=== PATIENT | male | born 1945 | race Two or more races ===

== ENCOUNTER → 2017-04-24 | Outpatient (REF) | payer MEDICARE, OTHER | LOC: M LAB REF 12:56 | PROVIDERS: ATTEND Internal Medicine | DX: R25.1 Tremor, unspecified (principal) ==

== ENCOUNTER 2017-07-15 10:11 | Day surgery (SDC) | payer MEDICARE, OTHER ==
[2017-07-15] MEDS ORDERED: NS 1,000 ML IV (10:30)
[2017-07-15] MEDS ORDERED: PROPOFOL 500 MG/50 ML VIAL As Ordered (10:49)
[2017-07-15] MEDS ORDERED: LIDOCAINE 2% INJ 100 MG/5 ML SDV (FOR ANES.) As Ordered (10:49)
[2017-07-15] MEDS ORDERED: fentaNYL 100 MCG/2 ML INJECTION (J3010) As Ordered (10:49)
[2017-07-15] MEDS ORDERED: PHENYLephrine HCL 500 MCG/5 ML (100MCG/ML) SYRINGE (J2370) As Ordered (10:57)
== END 2017-07-15 12:00 | disposition home or self-care (01) ==
LOC: M OPP 10:11
DX: R19.4 Change in bowel habit (principal); K57.30 Diverticulosis of large intestine without perforation or abscess without bleeding; K62.5 Hemorrhage of anus and rectum; K64.0 First degree hemorrhoids; D12.2 Benign neoplasm of ascending colon; Z80.0 Family history of malignant neoplasm of digestive organs; R12 Heartburn; K44.9 Diaphragmatic hernia without obstruction or gangrene; K22.8 Other specified diseases of esophagus; I12.9 Hypertensive chronic kidney disease with stage 1 through stage 4 chronic kidney disease, or unspecified chronic kidney disease; K21.9 Gastro-esophageal reflux disease without esophagitis; E78.00 Pure hypercholesterolemia, unspecified; G43.909 Migraine, unspecified, not intractable, without status migrainosus; N18.3 Chronic kidney disease, stage 3 (moderate); Z79.82 Long term (current) use of aspirin; Z79.899 Other long term (current) drug therapy; Z88.0 Allergy status to penicillin; Z85.828 Personal history of other malignant neoplasm of skin
CPT/HCPCS: 45385

== ENCOUNTER → 2020-05-04 | Outpatient (REF) | payer MEDICARE, OTHER ==
[~2020-05-04] MED LIST: ASPI81TA26 PO; ATOR1TAB21 PO; COEN60CA PO; LOSA25TA14 PO; MAGN250T7 PO; MULT1TAB10 PO; POTA99TA PO; RANI150T PO; VITA-243 PO; VITA200016 PO
== END ==
LOC: M LAB REF 16:15
PROVIDERS: ATTEND Physician Assistant Medical
DX: R19.7 Diarrhea, unspecified (principal)

== ENCOUNTER → 2020-05-06 | Outpatient (CLI) | payer MEDICARE, OTHER ==
--- NOTE | 2020-05-06 08:59 | REP ---
INDICATION: RIGHT UPPER QUAD PAIN, DIARRHEA. COMPARISON: None. TECHNIQUE: Right upper quadrant sonography. FINDINGS: Scanning through the right upper quadrant of the abdomen demonstrates a normal sized, thin-walled gallbladder without evidence of stone or polyp. Common bile duct is normal measuring 0.4 cm in greatest diameter. No focal liver lesion is seen. Liver size is normal. Pancreas is partially obscured by bowel gas. Scan quality is inhibited and generally by limited scanning windows necessitating intercostal scanning. No pancreatic abnormality is observed. No right renal abnormality is seen. There is no evidence of ascites. The right kidney measures 9.5 x 5.0 x 4.7 cm. IMPRESSION: No abnormality noted. Negative right upper quadrant sonography.. <Electronically signed by Vern Estrada > 05/06/20 [id number]
== END ==
LOC: M RAD 08:11
PROVIDERS: ATTEND Physician Assistant Medical
DX: R10.11 Right upper quadrant pain (principal); R19.7 Diarrhea, unspecified

== ENCOUNTER → 2020-05-30 | Outpatient (REF) | payer MEDICARE, OTHER ==
[2020-05-30 17:31] LABS: C REACTIVE PROTEIN QUANTITATIV 0.44 MG/DL (0.00-0.30); RHEUMATOID FACTOR QUANT < 10.0 IU/ML (<15.0); URIC ACID 2.6 MG/DL (3.5-7.2)
[2020-05-30 17:41] LABS: VITAMIN B12 LEVEL 859 PG/ML (247-911)
[2020-05-31 13:49] LABS: BLOOD UREA NITROGEN 24 MG/DL (7-18); CALCIUM LEVEL 9.2 MG/DL (8.8-10.2); CARBON DIOXIDE LEVEL 32 MEQ/L (21-32); CHLORIDE LEVEL 105 MEQ/L (98-107); CREATININE FOR GFR 1.43 MG/DL (0.70-1.30); GLOMERULAR FILTRATION RATE 51.6 (>42); GLUCOSE, FASTING 84 MG/DL (70-100); POTASSIUM SERUM 4.2 MEQ/L (3.5-5.1); SODIUM LEVEL 141 MEQ/L (136-145)
[2020-06-02 02:07] LABS: ANTI DOUBLE STRAND-DNA AB <1 IU/mL (0-9); ANTINUCLEAR ANTIBODIES DIRECT Positive (Negative); CYCLIC CITRULLINATED PEPTIDE 6 units (0-19); Lyme Disease IgG/IgM Antibodie <0.91 ISR (0.00-0.90); Lyme Disease IgM Ab Quantitati <0.80 index (0.00-0.79); RNP ANTIBODIES 3.5 AI (0.0-0.9); SJOGREN'S ANTI SS-A <0.2 AI (0.0-0.9); SJOGREN'S ANTI SS-B <0.2 AI (0.0-0.9); SMITH ANTIBODIES <0.2 AI (0.0-0.9)
== END ==
LOC: M LAB REF 16:38
PROVIDERS: ATTEND Internal Medicine
DX: I12.9 Hypertensive chronic kidney disease with stage 1 through stage 4 chronic kidney disease, or unspecified chronic kidney disease (principal); M25.50 Pain in unspecified joint; R42 Dizziness and giddiness

== ENCOUNTER → 2020-06-09 | Outpatient (REF) | payer MEDICARE, OTHER ==
[~2020-06-09] MED LIST changes: +D32000CA PO; +FEBU40TA4 PO; +MULT-90 PO; +PANT40TA29 PO; +POTA8CAP10 PO
[2020-06-09 17:20] LABS: C REACTIVE PROTEIN QUANTITATIV 0.37 MG/DL (0.00-0.30)
== END ==
LOC: M LAB REF 15:59
PROVIDERS: ATTEND Internal Medicine
DX: R10.13 Epigastric pain (principal); R19.4 Change in bowel habit

== ENCOUNTER → 2020-06-17 | Outpatient (CLI) | payer MEDICARE, OTHER | LOC: M LABSMTC 11:41 | PROVIDERS: ATTEND Anesthesiology | DX: Z01.812 Encounter for preprocedural laboratory examination (principal); Z20.822 Contact with and (suspected) exposure to COVID-19 ==

== ENCOUNTER 2020-06-22 10:03 | Day surgery (SDC) | payer MEDICARE, OTHER ==
[~2020-06-22] VITALS: Ht 167.6 cm; Wt 83.9 kg
[~2020-06-22 10:03] MED LIST changes: +NS 1,000 ML IV ONE
--- OUTSIDE RECORDS SUMMARY | 2020-06-22 10:13 | CCD | Continuity of Care Document ---
Author Author Lab Schedule, Valentin Organization Unknown Address [address] [place] [id number] Phone Unavailable Care Team Providers Care Hammer Adjuster Name Role Phone Keyana Alcaraz AUTM [phone] [facility] AUTM Unavailable Cy Conde MD AUTM [phone] Sandrita Nix MD AUTM [phone] Jose Valentin MD AUTM [phone] Problems Active Problems Provider Date Essential hypertension Keyana Alcaraz FNP Onset: 08/03/2012 Pure hyperglyceridemia Keyana Alcaraz FNP Onset: 08/03/2012 Chronic kidney disease stage 3 Keyana Alcaraz FNP Onset: Social History Type Date Description Comments Sex Unknown ETOH Use Denies alcohol use Tobacco Use Start: Unknown End: Unknown Patient is a former smoker PIPE QUITE 25 YRS AGO Allergies, Adverse Reactions, Alerts Active Allergies Reaction Severity Comments Date Bactrim HIVES 05/01/2010 Medications Active Medications SIG Qnty Indications Ordering Provide r Date Atorvastatin Calcium 20mg Tablets 1 by mouth every day Sherri Nix M.D. 05/30/19 21 Coenzyme Q-10 200mg Capsules qd Sandrita Nix M.D. 05/30/2020 Asacol HD 800mg Tablets DR 1 by mouth three times a day 270tabs Sandrita Nix M.D. 2019 [facility] B12 2500mcg Chewtabs 1 PO qd Keyana Alcaraz FNP 05/07/2019 Pantoprazole Sodium 40mg Tablets D R take one tablet by mouth every night at bedtime Sherri Nix M.D. 05/08/2018 Tylenol Extra Strength 500mg Table ts 2 pills 2-3x/d as needed Sandrita Nix M.D. 0 08/30/2015 Calcium Citrate +D [id number] Tablets 1 po qd Sandrita Nix M.D. 06/27/19 16 Vitamin D3 2000Unit Tablets 1 by mouth every day Keyana Alcaraz FNP 04/29/2015 Multi-Vitamin Tablets 2 by mouth every day Sandrita Nix M.D. 05/01/20 10 Losartan Potassium 25mg Tablets 1/2 po qd Or Keyana Alcaraz FNP Febuxostat 80mg Tablets take 1 tablets by mouth daily Va Unknown History Medications Asacol HD 800mg Tablets DR 1 by mouth three times a day 180tabs Sandrita Nix M.D. 2019 - 05/02/2020 Medications Administered in Office Medication SIG Qnty Indications Ordering Provider Date Covid-19 vaccine, Unspecified Inj ection Unknown 05/19/2020 Administration Of Flu Vaccine Inj ection Keyana Alcaraz FNP 03/31/2014 Administration Of Flu Vaccine Inj ection Nurse Schedule 03/27/2012 Administration Of Flu Vaccine Inj ection Sandrita Nix M.D. 03/21/20 05 Immunizations CPT Code Status Date Vaccine Lot # U-Flu Given 02/25/2020 Influenza,Unspecified U-Flu Given 02/24/2019 Influenza,Unspecified U-Flu Given 02/14/2018 Influenza,Unspecified 65617 Given 11/27/2016 Adacel- Tetanus Diphtheria P ertussis (Age64 & Under) [id number] Given 06/08/2014 Prevnar 13 [id number] Q2037 Given 03/31/2014 Fluvirin Virus Vaccine [id number] 21 Q2037 Given 03/27/2012 Fluvirin Virus Vaccine Q2037 Given 03/02/2011 Fluvirin Virus Vaccine Q2037 Given 03/02/2011 Fluvirin Virus Vaccine 34970 Given 11/02/2008 Zoster Vaccine 98227 Given 03/18/2008 Influenza Virus Vaccine 51838 Given 03/21/2005 Influenza Virus Vaccine Vital Signs Date Vital Result Comment 05/30/2020 1:58pm BP Systolic 110 mmHg BP Diastolic 60 mmHg Heart Rate 94 /min Height 65.25 inches 5'5.25" Weight 183.50 lb O2 Saturation Level with Exercise 95 % RM Air BMI (Body Mass Index) 30.3 kg/m2 05/04/2020 1:07pm BP Systolic 110 mmHg BP Diastolic 78 mmHg Heart Rate 76 /min Height 65.25 inches 5'5.25" Weight 186.00 lb BMI (Body Mass Index) 30.7 kg/m2 Results Test Acquired Date Facility Test Result H/L Range Note Laboratory test finding 06/09/2020 [facility] [address] [place] [address] [phone] C Reactive Protein Quantitativ 0.37 mg/dL High 0 .00-0.30 Lipase 166 U/L Normal 73-393 Complete Blood Count 06/09/2020 [facility] [employer] Guest Relations Associate: [place] [address] [phone] WBC 5.2 x10*3/UL 4.1 - 10.9 RBC 4.18 x10*6/UL Low 4.20 - 6.30 Hemoglobin 13.3 g/dL 12.0 - 18.0 Hematocrit 39.2 % 37.0 - 51.0 MCV 93.6 fL 80.0 - 97.0 MCH 31.8 pg 26.0 - 32.0 MCHC 33.9 g/dL 31.0 - 38.0 RDW 12.4 % 11.6 - 13.7 PLT 174 x10*3/UL 140 - 440 MPV 8.6 FL 7.8 - 11.0 Lymph % 36.8 % 10.0 - 58.5 Mid % 7.4 % 1.7 - 9.3 Neut % 55.8 % 37.0 - 92.0 Lymph # 1.9 x10*3/UL 0.6 - 4.1 Mid # 0.4 x10*3/UL 0.1 - 0.6 Neut # 2.9 x10*3/UL 2.0 - 7.8 Comprehensive Chem Profile 06/09/2020 [facility] Guest Relations Associate: [place] [address] [phone] Glucose 98 mg/dL 74 - 99 1 BUN 13 mg/dL 7 - 18 Creatinine 1.5 mg/dL High 0.6 - 1.3 Sodium 139 mEq/L 136 - 145 Potassium 4.1 mEq/L 3.5 - 5.1 Chloride 102 mEq/L 98 - 107 Carbon Dioxide 34 mEq/L High 21 - 32 Calcium 8.5 mg/dL 8.5 - 10.1 Alk. Phosphatase 96 mg/dL 46 - 116 Total Bilirubin 0.5 mg/dL 0.2 - 1.0 Ast (Sgot) 29 U/L 15 - 37 Alt (SGPT) 24 U/L 12 - 78 Albumin 3.7 g/dL 3.4 - 5.0 Total Protein 7.5 g/dL 6.4 - 8.2 A/G Ratio 0.97 CALC Low 1.00 - 1.90 GFR 46 mL/min Low >60 GFR 56 mL/min Low >60 2 Ua Dipstick Only 05/30/2020 [facility] , Guest Relations Associate: Dr Marky Syed [place] [id number] [phone] Urine Color YELLOW Yellow Urine Appearance SL. HAZY Abnormal Clear Urine PH 5.0 units 5.0 - 9.0 Urine Specific Lemitar 1.025 1.005 - 1.030 Urine Leukocytes NEGATIVE Negative Urine Blood NEGATIVE Negative Urine Protein TRACE Negative -Trace Urine Glucose NEGATIVE mg/dL Negative Urine Nitrite NEGATIVE Negative Urine Ketone NEGATIVE mg/dL Negative Urine Bilirubin NEGATIVE Negative Urine Urobilinogen 0.2 mg/dL 0.2 - 1.0 Laboratory test finding 05/30/2020 [facility] [employer] [facility] [facility] Guest Relations Associate: Dr Marky Syed [place], [place] [id number] [phone] Sed Rate 35 mm/hr High 0 - 15 Basic Metabolic Profile 05/30/2020 [facility] [address] [place] [address] [phone] Glucose, Fasting 84 mg/dL Normal 70-100 Blood Urea Nitrogen 24 mg/dL High 7-18 Creatinine For GFR 1.43 mg/dL High 0.70-1.30 Glomerular Filtration Rate 51.6 Normal >42 3 Sodium Level 141 mEq/L Normal 136-145 Potassium Serum 4.2 mEq/L Normal 3.5-5.1 Chloride Level 105 mEq/L Normal 98-107 Carbon Dioxide Level 32 mEq/L Normal 21-32 Anion Gap 4 mEq/L Low 8-16 Calcium Level 9.2 mg/dL Normal 8.8-10.2 Laboratory test finding 05/30/[address] [address] [phone] Thyroid Stimulating Hormone 4.100 uIU/ML High 0. 358-3.740 Lyme Disease SCRN With Confirm 05/30/[address] [address] [phone] Lyme Disease IgG/IgM Antibodie <0.91 ISR Normal 0 .00-0.90 4 Lyme Disease IgM Ab Quantitati <0.80 index Normal 0.00-0.79 5 Laboratory test finding 05/30/[address] [address] [phone] Cyclic Citrullinated Peptide 6 units Normal 0-1 9 6 Rheumatoid Factor Quant < 10.0 IU/mL Normal <15.0 Uric Acid 2.6 mg/dL Low 3.5-7.2 Vitamin B12 Level 859 pg/mL Normal 247-911 7 Antinuclear Antibodies 05/30/[address] [address] [phone] Antinuclear Antibodies Direct Positive Abnormal Ne gative Anti Double Strand-Dna AB <1 IU/mL Normal 0-9 8 ART MUSEUM DOCENT Antibodies 3.5 AI High 0.0-0.9 Fan Antibodies <0.2 AI Normal 0.0-0.9 Sjogren's Anti SS-A <0.2 AI Normal 0.0-0.9 Sjogren's Anti SS-B <0.2 AI Normal 0.0-0.9 Griselda Comment (SEE NOTE) Normal . 9 Laboratory test finding 05/30/[address] [address] [phone] C Reactive Protein Quantitativ 0.44 mg/dL High 0 .00-0.30 GI Profile PCR So 05/04/2020 [facility] [address] [place], [place] [id number] [phone] Campylobacter Not Detected 10 C.difficile A/B Not Detected 11 Plesiomonas shigelloides Not Detected 12 Salmonella Not Detected 13 Vibro Not Detected 14 Vibrio cholerae Not Detected 15 Yersinia enterocolitica Not Detected 16 Enteroaggregative Ecoli Not Detected 17 Entropathogenic Ecoli Not Detected 18 Enterotoxigenic Ecoli Not Detected 19 Shiga toxin producing Ecoli Not Detected 20 E coli 0157 Not applicable 21 Shigella Entroinvasive Ecoli Not Detected 22 Cryptosporidium Not Detected 23 Cyclospora cayetanensis Not Detected 24 Entamoeba histolytica Not Detected 25 Giardia lamblia Not Detected 26 Adenovirus F 40/41 Not Detected 27 Astrovirus Not Detected 28 Norovirus GI/Gii Not Detected 29 Rotavirus A Not Detected 30 Saprovirus Performed at: B <SEE NOTE> 31 Laboratory test finding 05/04/2020 [facility] [address] [place] [id number] [phone] C Reactive Protein Quantitativ 3.85 mg/dL High 0 .00-0.30 Complete Blood Count 05/04/2020 [facility] Guest Relations Associate: [place] [address] [phone] WBC 8.1 x10*3/UL 4.1 - 10.9 RBC 4.18 x10*6/UL Low 4.20 - 6.30 Hemoglobin 13.5 g/dL 12.0 - 18.0 Hematocrit 38.9 % 37.0 - 51.0 MCV 93.0 fL 80.0 - 97.0 MCH 32.2 pg High 26.0 - 32.0 MCHC 34.6 g/dL 31.0 - 38.0 RDW 12.6 % 11.6 - 13.7 PLT 173 x10*3/UL 140 - 440 MPV 9.1 FL 7.8 - 11.0 Lymph % 16.8 % 10.0 - 58.5 Mid % 4.3 % 1.7 - 9.3 Neut % 78.9 % 37.0 - 92.0 Lymph # 1.3 x10*3/UL 0.6 - 4.1 Mid # 0.5 x10*3/UL 0.1 - 0.6 Neut # 6.3 x10*3/UL 2.0 - 7.8 Laboratory test finding 05/04/2020 [facility] [employer] [facility] [facility] Guest Relations Associate: [place] [address] [phone] Sed Rate 36 mm/hr High 0 - 15 Comprehensive Chem Profile 05/04/2020 [facility] Guest Relations Associate: Dr Marky Syed [place], [place] [id number] [phone] Glucose 101 mg/dL High 74 - 99 32 BUN 16 mg/dL 7 - 18 Creatinine 1.3 mg/dL 0.6 - 1.3 Sodium 141 mEq/L 136 - 145 Potassium 4.2 mEq/L 3.5 - 5.1 Chloride 104 mEq/L 98 - 107 Carbon Dioxide 27 mEq/L 21 - 32 Calcium 8.6 mg/dL 8.5 - 10.1 Alk. Phosphatase 82 mg/dL 46 - 116 Total Bilirubin 0.7 mg/dL 0.2 - 1.0 Ast (Sgot) 27 U/L 15 - 37 Alt (SGPT) 26 U/L 12 - 78 Albumin 3.6 g/dL 3.4 - 5.0 Total Protein 7.4 g/dL 6.4 - 8.2 A/G Ratio 0.95 CALC Low 1.00 - 1.90 GFR 54 mL/min Low >60 GFR >= 60 mL/min >60 33 Basic Metabolic Panel 12/25/2019 [facility] Guest Relations Associate: [place] [address] [phone] Glucose 92 mg/dL 74 - 99 34 BUN 13 mg/dL 7 - 18 Creatinine 1.4 mg/dL High 0.6 - 1.3 Sodium 145 mEq/L 136 - 145 Potassium 4.2 mEq/L 3.5 - 5.1 Chloride 107 mEq/L 98 - 107 Carbon Dioxide 28 mEq/L 21 - 32 Calcium 8.2 mg/dL Low 8.5 - 10.1 35 GFR 50 mL/min Low >60 GFR >= 60 mL/min >60 36 Lipid Profile 12/25/2019 [facility] , Guest Relations Associate: [place] [address] [phone] Cholesterol 91 mg/dL Low 131 - 200 Triglycerides 102 mg/dL 30 - 150 HDL Cholesterol 31 mg/dL Low 35 - 60 LDL (Calculated) 40 CALC Low 50 - 159 1 100-125 mg/dL PRE-DIABET ES/FASTING >126 mg/dL DIABETES/FASTING 2 CHRONIC KIDNEY DISEASE STAGI NG PER NKF STAGE I & II GFR >= 60 NORMAL TO MILDLY DECREASED STAGE III GFR 30-59 MODERATELY DECREASED STAGE IV GFR 15-29 SEVERELY DECREASED STAGE V GFR <15 VERY LITTLE GFR LEFT ESRD GFR <15 ON MIXING PAN TENDER 3 Units are mL/min/1.73 m2 Chronic Kidney Disease Staging per NKF: Stage I & II GFR >=60 Normal to Mildly Decreased Stage III GFR 30-59 Moderately Decreased Stage IV GFR 15-29 Severely Decreased Stage V GFR <15 Very Little GFR Left ESRD GFR <15 on MIXING PAN TENDER 4 Negative <0.91 Equivocal 0.91 - 1.09 Positive >1.09 5 Negative <0.80 Equivocal 0.80 - 1.19 Positive >1.19 . IgM levels may peak at 3-6 weeks post infection, then gradually decline. 6 Negative <20 Weak positive 20 - 39 Moderate positive 40 - 59 Strong positive >59 7 VITAMIN B12 NORMAL RANGE NORMAL 247 - 911 PG/ML INDETERMINATE 211 - 246 PG/ML DEFICIENT LESS THAN 211 PG/ML 8 Negative <5 Equivocal 5 - 9 Positive >9 9 . Autoantibody Disease Association Condition Frequency -------- --------- Antinuclear Antibody, SLE, mixed connective Direct (GRISELDA-D) tissue diseases -------- --------- dsDNA SLE 40 - 60% -------- --------- Chromatin Drug induced SLE 90% SLE 48 - 97% -------- --------- SSA (Ro) SLE 25 - 35% Sjogren's Syndrome 40 - 70% Lupus 100% -------- --------- SSB (La) SLE 10% Sjogren's Syndrome 30% ------- --------- Sm (anti-Fan) SLE 15 - 30% ------- --------- ART MUSEUM DOCENT Mixed Connective Tissue Disease 95% (U1 nRNP, SLE 30 - 50% anti-ribonucleoprotein) Polymyositis and/or Dermatomyositis 20% -------- --------- Scl-70 (antiDNA Scleroderma (diffuse) 20 - 35% topoisomerase) Crest 13% -------- --------- Lauryn-1 Polymyositis and/or Dermatomyositis 20 - 40% -------- --------- Centromere B Scleroderma - Crest variant 80% Performed at: [facility] [address] [id number] Guest Relations Associate: Gris Oro MD, Phone: [phone] Performed at: [facility] [id number] Guest Relations Associate: Minh Mora MD, Phone: [phone] 14 15 16 17 18 19 20 21 22 23 24 25 26 27 28 29 30 31 Performed at: [facility] [id number] Guest Relations Associate: Minh Mora MD, Phone: [phone] Not Detected 32 100-125 mg/dL PRE-DIABET ES/FASTING >126 mg/dL DIABETES/FASTING 33 CHRONIC KIDNEY DISEASE STAGI NG PER NKF STAGE I & II GFR >= 60 NORMAL TO MILDLY DECREASED STAGE III GFR 30-59 MODERATELY DECREASED STAGE IV GFR 15-29 SEVERELY DECREASED STAGE V GFR <15 VERY LITTLE GFR LEFT ESRD GFR <15 ON MIXING PAN TENDER 34 100-125 mg/dL PRE-DIABET ES/FASTING >126 mg/dL DIABETES/FASTING 35 NOTE: RESULT VERIFIED. 36 CHRONIC KIDNEY DISEASE STAGI NG PER NKF STAGE I & II GFR >= 60 NORMAL TO MILDLY DECREASED STAGE III GFR 30-59 MODERATELY DECREASED STAGE IV GFR 15-29 SEVERELY DECREASED STAGE V GFR <15 VERY LITTLE GFR LEFT ESRD GFR <15 ON MIXING PAN TENDER Procedures Date Code Description Status 05/30/2020 28168 EKG/Interpretation & Report Comp leted 07/15/2017 [id number] Colonoscopy Completed 04/02/2012 [id number] Colonoscopy Completed 01/16/2010 [id number] Colonoscopy Completed Medical Devices Description No Information Available Encounters Type Date Location Provider Dx Diagnosis Office Visit 05/30/2020 2:00p [facility] Nurse #2 Z13.89 Encounter for screening for other disorder Z86.010 Personal history of colonic polyps Office Visit 05/30/2020 2:30p [facility] 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 R42 Dizziness and giddiness R44.1 Visual hallucinations G31.84 Mild cognitive impairment, s o stated G47.33 Obstructive sleep apnea (soledad lt) (pediatric) K21.9 Gastro-esophageal reflux dis ease without esophagitis M10.9 Gout, unspecified I12.9 Hypertensive chronic kidney disease w stg 1-4/unsp chr kdny N18.31 Chronic kidney disease, stag e 3a M06.4 Inflammatory polyarthropathy E66.09 Other obesity due to excess calories Z68.30 Body mass index [BMI]30.0-30 .9, adult Office Visit 05/04/2020 1:20p [facility] Wise [facility], [place] R07.89 Other chest pain R19.7 Diarrhea, unspecified R10.811 Right upper quadrant abdomin al tenderness K21.9 Gastro-esophageal reflux dis ease without esophagitis Office Visit 01/01/2020 9:40a [facility] Mikaela banerjee, [employer]ENER I10 Essential (primary) hypertension E78.00 Pure hypercholesterolemia, u nspecified K21.9 Gastro-esophageal reflux dis ease without esophagitis M15.9 Polyosteoarthritis, unspecif ied M10.9 Gout, unspecified R97.20 Elevated prostate specific a ntigen [PSA] E66.09 Other obesity due to excess calories Z68.30 Body mass index (BMI) 30.0-3 0.9, adult Assessments Date Code Description Provider 06/09/2020 R19.4 Change in bowel habit Sandrita moon M.D. 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 05/30/2020 R42 Dizziness and giddiness Sandrita Nix M.D. 05/30/2020 R44.1 Visual hallucinations Sandrita moon M.D. 05/30/2020 G31.84 Mild cognitive impairment, so st ated Sandrita Nix M.D. 05/30/2020 G47.33 Obstructive sleep apnea (adult) (pediatric) Sandrita Nix M.D. 05/30/2020 K21.9 Gastro-esophageal reflux disease without esophagitis Sandrita Nix M.D. 05/30/2020 M10.9 Gout, unspecified Sandrita em M.D. 05/30/2020 I12.9 Hypertensive chronic kidney disease with stage 1 through stage 4 chronic kidney disease, or unspecified chronic kidney disease Sandrita Nix M.D. 05/30/2020 N18.31 Chronic kidney disease, stage 3a Sandrita Nix M.D. 05/30/2020 M06.4 Inflammatory polyarthropathy Shawn Nix M.D. 05/30/2020 E66.09 Other obesity due to excess grecia rhea Sandrita Nix M.D. 05/30/2020 Z68.30 Body mass index [BMI]30.0-30.9, adult Sandrita Nix M.D. 05/04/2020 R07.89 Other chest pain Rao sampson JR, PA 05/04/2020 R19.7 Diarrhea, unspecified Rao ramírez JR, PA 05/04/2020 R10.811 Right upper quadrant abdominal t enderness Rao Wise JR, PA 05/04/2020 K21.9 Gastro-esophageal reflux disease without esophagitis Rao Wise JR, PA 01/01/2020 I10 Essential (primary) hypertension Mikaela Whitley, [facility] 01/01/2020 E78.00 Pure hypercholesterolemia, unspe cified Mikaela Cabrerara, [facility] 01/01/2020 K21.9 Gastro-esophageal reflux disease without esophagitis Mikaela Whitley, [facility] 01/01/2020 M15.9 Polyosteoarthritis, unspecified Mikaela Gutierrez, [facility] 01/01/2020 M10.9 Gout, unspecified Mikaela Gutierrez, [facility] 01/01/2020 R97.20 Elevated prostate specific antig en [PSA] Mikaela Whitley, [facility] 01/01/2020 E66.09 Other obesity due to excess grecia rhea Mikaela Whitley, [facility] 01/01/2020 Z68.30 Body mass index (BMI) 30.0-30.9, adult Mikaela Whitley, [facility] 12/25/2019 I10 Essential (primary) hypertension Mikaela Whitley, [facility] 12/25/2019 I10 Essential (primary) hypertension Lab Schedule 12/25/2019 E78.00 Pure hypercholesterolemia, unspe cified Mikaela Whitley, [facility] 12/25/2019 E78.00 Pure hypercholesterolemia, unspe cified Lab Schedule Plan of Treatment Future Appointment(s):* 07/04/2020 10:45 am - Sandrita Nix M.D. at [facility]. 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 * R42 Dizziness and giddiness * R44.1 Visual hallucinations * G31.84 Mild cognitive impairment, so stated * G47.33 Obstructive sleep apnea (adult) (pediatric) * K21.9 Gastro-esophageal reflux disease without esophagitis * M10.9 Gout, unspecified * I12.9 Hypertensive chronic kidney disease with stage 1 through stage 4 chronic kidney disease, or unspecified chronic kidney disease * N18.31 Chronic kidney disease, stage 3a * M06.4 Inflammatory polyarthropathy * E66.09 Other obesity due to excess calories * Z68.30 Body mass index [BMI]30.0-30.9, adult * All * New Medication:* Atorvastatin Calcium 20 mg - 1 by mouth every day * Coenzyme Q-10 200 mg - qd * Comments:* 13. Hard of hearing. Continue the hearing aids14. Migraines. Improved. I have approved using Excedrin [id number]. OA/DJD, chronic low back pain. Evaluate inflammatory [id number]. Health Maintenance. Medicare Wellness paperwork reviewed including check list, CAGE, Cognitive impairment, PHQ9, male preventative wellness. Patient is up to date with vaccine, even the COVID-19. Up to date with colon cancer screening. Diet, exercise encouraged. Functional Status Description No Information Available Mental Status Description No Information Available Referrals Refer to Reason for Referral Status Appt Date Jose Valentin MD CONSULT FOR DIARRHEA Patient Notified [address] [facility] [address] [phone] [facility] Pulmonary Medicine CONSULT FOR SLEEP STUDY FOR CHIDI SYMPTONS Sent [id number] [place] [address] [phone]
--- OUTSIDE RECORDS SUMMARY | 2020-06-22 10:13 | CCD | Continuity of Care Document ---
Author Author Valentin VALENTIN M.D Organization Unknown Address [address] [place] [address] Phone [phone] Care Team Providers Care Web User Experience Strategist Name Role Phone Sandrita Nix M.D. AUTM [phone] Problems Active Problems Provider Date Screening for malignant neoplasm of colon Jose mcadams M.D. Onset: 06/09/2020 Abdominal pain Jose Valentin M.D. Onset: 02/11/20 12 Hemorrhage of rectum and anus Jose Valentin M.D. Onset : 02/11/2012 Diarrhea Jose Valentin M.D. Onset: 09/27/19 12 Family history of malignant neoplasm of gastrointestin al tract Jose Valentin M.D. Onset: 09/27/2011 Gastroesophageal reflux disease Jose Valentin M.D. Ons et: 09/27/2011 History of polyp of colon Jose Valentin M.D. Onset: Social History Type Date Description Comments Sex Unknown Tobacco Use Start: Unknown Patient has never smoked Allergies, Adverse Reactions, Alerts Active Allergies Reaction Severity Comments Date Bactrim 08/08/2011 Reglan 08/08/2011 Medications Active Medications SIG Qnty Indications Ordering Provide r Date Suprep Bowel Prep Kit 17.5-3.13-1.6GM/177ML Solution use as directed 354ml Jose Valentin M.D. 06/09/2020 Pantoprazole Sodium 40mg Tablets D R Take 1 Tablet Every Evening Before Dinner 90tabs Jose fonseca M.D. 09/25/2018 Atorvastatin Calcium 20mg Tablets Unknown Losartan Potassium 25mg Tablets Unknown Calcium 600+D [id number]-Qrvn Tablets Unknown Multiple Vitamin Tablets Unknown Mesalamine 800mg Tablets DR Take One Tablet By Mouth Three Times A Day Unknown Febuxostat 80mg Tablets Unknown Coq-10 100mg Capsules ER Unknown Flaxseed Oil 1000mg Capsules Unknown Immunizations Description No Information Available Vital Signs Date Vital Result Comment 06/09/2020 2:07pm Height 66 inches 5'6" Weight 186.00 lb BP Systolic 124 mmHg BP Diastolic 83 mmHg Heart Rate 76 /min BMI (Body Mass Index) 30.0 kg/m2 Weight 84.370 kg Body Temperature 97.3 F 06/25/2017 3:11pm Height 66 inches 5'6" Weight 189.00 lb BP Systolic 122 mmHg BP Diastolic 83 mmHg Heart Rate 109 /min BMI (Body Mass Index) 30.5 kg/m2 Weight 85.730 kg Results Description No Information Available Procedures Description No Information Available Medical Devices Description No Information Available Encounters Type Date Location Provider Dx Diagnosis Office Visit 06/09/2020 1:45p Main Office Jose Valentin M.D. R 10.10 Upper abdominal pain, unspecified Assessments Date Code Description Provider 06/09/2020 R10.10 Abdominal pain Jose aguero M.D. Plan of Treatment Future Appointment(s):* 06/22/2020 10:00 am - Jose Valentin M.D. at Main Office 06/09/2020 - Jose Valentin M.D.* R10.10 Abdominal pain* Comments:* 74 yo wm who presents for a h/o diarrhea since October. Pt has diarrhea up to 4 to 6 times per day. Pt has epigastric/ruq abdominal pain. Pt had an us of the gall bladder which was negative for stones. Pt has occasional rectal bleeding.Plan:1. Colonoscopy + egd.2. Informed consent. Functional Status Description No Information Available Mental Status Description No Information Available Referrals Description No Information Available
--- OUTSIDE RECORDS SUMMARY | 2020-06-22 10:13 | CCD | Continuity of Care Document ---
Author Author Lab Schedule, Valentin Organization Unknown Address [address] [place] [address] Phone Unavailable Care Team Providers Care Alarm Installer Name Role Phone Keyana Alcaraz AUTM [phone] [facility] AUTM Unavailable Cy Conde MD AUTM [phone] Sandrita Nix MD AUTM [phone] Jose Valentin MD AUTM [phone] Problems Active Problems Provider Date Essential hypertension [...] Nix M.D. 0 08/30/2015 Calcium Citrate +D [id number] Tablets 1 po qd Sandrita Nix M.D. 06/27/19 16 Vitamin D3 2000Unit Tablets 1 by mouth every day Keyana Alcaraz FNP 04/29/2015 Multi-Vitamin Tablets 2 by mouth every day Sandrita Nix M.D. 05/01/20 10 Losartan Potassium 25mg Tablets 1/2 po qd W[place] Keyana Alcaraz FNP Febuxostat 80mg Tablets take [...] Given 02/24/2019 Influenza,Unspecified U-Flu Given 02/14/2018 Influenza,Unspecified 77069 Given 11/27/2016 Adacel- Tetanus Diphtheria P ertussis (Age64 & Under) [id number] 40252 Given 06/08/2014 Prevnar 13 [id number] Q2037 Given 03/31/2014 Fluvirin Virus Vaccine 60831 21 Q2037 Given 03/27/2012 Fluvirin Virus Vaccine Q2037 Given 03/02/2011 Fluvirin Virus Vaccine Q2037 Given 03/02/2011 Fluvirin Virus Vaccine 78404 Given 11/02/2008 Zoster Vaccine 29489 Given 03/18/2008 Influenza Virus Vaccine 56502 Given 03/21/2005 Influenza Virus Vaccine Vital Signs [...] H/L Range Note Laboratory test finding 06/09/2020 [facility] [address] [place] [address] [phone] High Sensitivity C-Reactive Protein <pending> Lipase <pending> Complete Blood Count 06/09/2020 [facility]enkins Exhibition Carver: [place] [address] [phone] WBC 5.2 x10*3/UL 4.1 - 10.9 RBC [...] 2.0 - 7.8 Comprehensive Chem Profile 06/09/2020 [facility] Exhibition Carver: [place] [address] [phone] Glucose 98 mg/dL 74 - 99 1 [...] Low >60 2 Ua Dipstick Only 05/30/2020 [facility] Exhibition Carver: [place] [address] [phone] Urine Color YELLOW Yellow Urine Appearance SL. HAZY Abnormal Clear Urine PH 5.0 units 5.0 - 9.0 Urine Specific [place] 1.025 1.005 - 1.030 Urine Leukocytes NEGATIVE Negative Urine Blood NEGATIVE Negative Urine Protein TRACE Negative -Trace Urine Glucose NEGATIVE mg/dL Negative Urine Nitrite NEGATIVE Negative Urine Ketone NEGATIVE mg/dL Negative Urine Bilirubin NEGATIVE Negative Urine Urobilinogen 0.2 mg/dL 0.2 - 1.0 Laboratory test finding 05/30/2020 [facility] Exhibition Carver: [place] [address] [phone] Sed Rate 35 mm/hr High 0 - 15 Basic Metabolic Profile 05/30/2020 [facility] [address] [place] [address] [phone] Glucose, Fasting 84 mg/dL Normal 70-100 Blood [...] mg/dL Normal 8.8-10.2 Laboratory test finding 05/30/[address] [address] [phone] Thyroid Stimulating Hormone 4.100 uIU/ML High 0. 358-3.740 Lyme Disease SCRN With Confirm 05/30/[address] [address] [phone] Lyme Disease IgG/IgM Antibodie <0.91 ISR Normal 0 .00-0.90 4 Lyme Disease IgM Ab Quantitati <0.80 index Normal 0.00-0.79 5 Laboratory test finding 05/30/[address] [address] [phone] Cyclic Citrullinated Peptide 6 units Normal 0-1 9 6 Rheumatoid Factor Quant < 10.0 IU/mL Normal <15.0 Uric Acid 2.6 mg/dL Low 3.5-7.2 Vitamin B12 Level 859 pg/mL Normal 247-911 7 Antinuclear Antibodies 05/30/[address] [address] [phone] Antinuclear Antibodies Direct Positive Abnormal Ne gative Anti Double Strand-Dna AB <1 IU/mL Normal 0-9 8 ANALYTICAL CHEMIST Antibodies 3.5 AI High 0.0-0.9 Fan Antibodies <0.2 AI Normal 0.0-0.9 Sjogren's Anti SS-A <0.2 AI Normal 0.0-0.9 Sjogren's Anti SS-B <0.2 AI Normal 0.0-0.9 Griselda Comment (SEE NOTE) Normal . 9 Laboratory test finding 05/30/[address] [address] [phone] C Reactive Protein Quantitativ 0.44 mg/dL High 0 .00-0.30 GI Profile PCR So 05/04/2020 [facility] n[facility] [address] [place] [address] [phone] Campylobacter Not Detected 10 C.difficile A/B Not [...] <SEE NOTE> 31 Laboratory test finding 05/04/2020 [facility] [address] [place] [address] [phone] C Reactive Protein Quantitativ 3.85 mg/dL High 0 .00-0.30 Complete Blood Count 05/04/2020 [facility] Exhibition Carver: [place] [address] [phone] WBC 8.1 x10*3/UL 4.1 - 10.9 RBC [...] 2.0 - 7.8 Laboratory test finding 05/04/2020 [facility] Exhibition Carver: [place] [address] [phone] Sed Rate 36 mm/hr High 0 - 15 Comprehensive Chem Profile 05/04/2020 [facility] Exhibition Carver: Dr Marky Syed [place], [place] [id number] [phone] Glucose 101 mg/dL High 74 - 99 [...] mL/min >60 33 Basic Metabolic Panel 12/25/2019 [facility] Exhibition Carver: Dr Marky Syed [place], [place] [id number] [phone] Glucose 92 mg/dL 74 - 99 34 [...] 60 mL/min >60 36 Lipid Profile 12/25/2019 [facility] , Exhibition Carver: [place] [address] [phone] Cholesterol 91 mg/dL Low 131 - 200 [...] LITTLE GFR LEFT ESRD GFR <15 ON POST EXCHANGE MANAGER 3 Units are mL/min/1.73 m2 Chronic Kidney Disease Staging per NKF: Stage I & II GFR >=60 Normal to Mildly Decreased Stage III GFR 30-59 Moderately Decreased Stage IV GFR 15-29 Severely Decreased Stage V GFR <15 Very Little GFR Left ESRD GFR <15 on POST EXCHANGE MANAGER 4 Negative <0.91 Equivocal 0.91 - 1.09 [...] (anti-Fan) SLE 15 - 30% ------- --------- ANALYTICAL CHEMIST Mixed Connective Tissue Disease 95% (U1 nRNP, SLE 30 - 50% anti-ribonucleoprotein) Polymyositis and/or Dermatomyositis 20% -------- --------- Scl-70 (antiDNA Scleroderma (diffuse) 20 - 35% topoisomerase) Crest 13% -------- --------- Lauryn-1 Polymyositis and/or Dermatomyositis 20 - 40% -------- --------- Centromere B Scleroderma - Crest variant 80% Performed at: - [facility] [address] [id number] Exhibition Carver: Gris Oro MD, Phone: [phone] Performed at: - [facility] [address] [id number] Exhibition Carver: Minh Mora MD, Phone: [phone] 10 11 12 13 14 15 16 17 18 19 20 21 22 23 24 25 26 27 28 29 30 31 Performed at: - [facility] [address] [id number] Exhibition Carver: Minh Mora MD, Phone: [phone] Not Detected 32 100-125 mg/dL PRE-DIABET ES/FASTING >126 mg/dL DIABETES/FASTING 33 CHRONIC KIDNEY DISEASE STAGI NG PER NKF STAGE I & II GFR >= 60 NORMAL TO MILDLY DECREASED STAGE III GFR 30-59 MODERATELY DECREASED STAGE IV GFR 15-29 SEVERELY DECREASED STAGE V GFR <15 VERY LITTLE GFR LEFT ESRD GFR <15 ON POST EXCHANGE MANAGER 34 100-125 mg/dL PRE-DIABET ES/FASTING >126 mg/dL DIABETES/FASTING 35 NOTE: RESULT VERIFIED. 36 CHRONIC KIDNEY DISEASE STAGI NG PER NKF STAGE I & II GFR >= 60 NORMAL TO MILDLY DECREASED STAGE III GFR 30-59 MODERATELY DECREASED STAGE IV GFR 15-29 SEVERELY DECREASED STAGE V GFR <15 VERY LITTLE GFR LEFT ESRD GFR <15 ON POST EXCHANGE MANAGER Procedures Date Code Description Status 05/30/2020 86250 EKG/Interpretation & Report Comp leted 07/15/2017 [id number] Colonoscopy Completed 04/02/2012 [id number] Colonoscopy Completed 01/16/2010 [id number] Colonoscopy Completed Medical Devices Description No Information Available Encounters Type Date Location Provider Dx Diagnosis Office Visit 05/30/2020 2:00p [facility] Nurse #2 Z13.89 Encounter for screening for other disorder Z86.010 Personal history of colonic polyps Office Visit 05/30/2020 2:30p [facility] Shawn Nix M.D. 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 R42 Dizziness [...] [BMI]30.0-30 .9, adult Office Visit 05/04/2020 1:20p [facility], [place] R07.89 Other chest pain R19.7 Diarrhea, unspecified R10.811 Right upper quadrant abdomin al tenderness K21.9 Gastro-esophageal reflux dis ease without esophagitis Office Visit 01/01/2020 9:40a [facility], PCI SECURITY CONSULTANT I10 Essential (primary) hypertension E78.00 Pure hypercholesterolemia, u nspecified K21.9 Gastro-esophageal reflux dis ease without esophagitis M15.9 Polyosteoarthritis, unspecif ied M10.9 Gout, unspecified R97.20 Elevated prostate specific a ntigen [PSA] E66.09 Other obesity due to excess calories Z68.30 Body mass index (BMI) 30.0-3 0.9, adult Assessments Date Code Description Provider 05/30/2020 Z13.89 Encounter for screening for othe [...] PA 01/01/2020 I10 Essential (primary) hypertension Mikaela Gutierrez, [facility] 01/01/2020 E78.00 Pure hypercholesterolemia, unspe cified Mikaela Gutierrez, [facility] 01/01/2020 K21.9 Gastro-esophageal reflux disease without esophagitis Mikaela Gutierrez, [facility] 01/01/2020 M15.9 Polyosteoarthritis, unspecified Mikaela Gutierrez, [facility] 01/01/2020 M10.9 Gout, unspecified Mikaela Gutierrez, [facility] 01/01/2020 R97.20 Elevated prostate specific antig en [PSA] Mikaela Cabrerara, [facility] 01/01/2020 E66.09 Other obesity due to excess grecia rhea Mikaela Gutierrez, [facility] 01/01/2020 Z68.30 Body mass index (BMI) 30.0-30.9, adult Mikaela Whitley, [facility] 12/25/2019 I10 Essential (primary) hypertension Mikaela Whitley, [place] 12/25/2019 I10 Essential (primary) hypertension Lab Schedule 12/25/2019 E78.00 Pure hypercholesterolemia, unspe cified Mikaela Whitley, PCI SECURITY CONSULTANT 12/25/2019 E78.00 Pure hypercholesterolemia, unspe cified Lab Schedule Plan of Treatment Future Appointment(s):* 07/04/2020 10:45 am - [facility] 05/30/2020 - Sandrita Nix M.D.* K52.3 Indeterminate [...] Migraines. Improved. I have approved using Excedrin [id number]. OA/DJD, chronic low back pain. Evaluate inflammatory . Health Maintenance. Medicare Wellness paperwork reviewed including [...] MD CONSULT FOR DIARRHEA Patient Notified [address] [facility] [address] [phone] [facility] Pulmonary Medicine CONSULT FOR SLEEP STUDY FOR CHIDI SYMPTONS Sent [phone] [place] [address] [phone]
--- OUTSIDE RECORDS SUMMARY | 2020-06-22 10:13 | CCD | Continuity of Care Document ---
Author Author Lab Schedule, Valentin Organization Unknown Address [address] [place] [phone] Phone Unavailable Care Team Providers Care Riveter Portable Machine Name Role Phone Keyana Alcaraz AUTM [phone] [facility] AUTM Unavailable Cy Conde MD AUTM [phone] Sandrita Nix MD AUTM [phone] Jose Valentin MD AUTM [phone] Problems Active Problems Provider Date Essential hypertension [...] Nix M.D. 0 08/30/2015 Calcium Citrate +D [id number]-Txka Tablets 1 po qd Sandrita Nix M.D. 06/27/19 16 Vitamin D3 2000Unit Tablets 1 by mouth every day Keyana Alcaraz FNP 04/29/2015 Multi-Vitamin Tablets 2 by mouth every day Sandrita Nix M.D. 05/01/20 10 Losartan Potassium 25mg Tablets 1/2 po qd Me Keyana Alcaraz FNP Febuxostat 80mg Tablets take [...] Given 02/24/2019 Influenza,Unspecified U-Flu Given 02/14/2018 Influenza,Unspecified 91291 Given 11/27/2016 Adacel- Tetanus Diphtheria P ertussis (Age64 & Under) [id number] 60684 Given 06/08/2014 Prevnar 13 C00866 Q2037 Given 03/31/2014 Fluvirin Virus Vaccine 95763 21 Q2037 Given 03/27/2012 Fluvirin Virus Vaccine Q2037 Given 03/02/2011 Fluvirin Virus Vaccine Q2037 Given 03/02/2011 Fluvirin Virus Vaccine 31957 Given 11/02/2008 Zoster Vaccine 04740 Given 03/18/2008 Influenza Virus Vaccine 53885 Given 03/21/2005 Influenza Virus Vaccine Vital Signs [...] H/L Range Note Laboratory test finding 06/09/2020 [facility] [address] [place] [address] [phone] C Reactive Protein Quantitativ 0.37 mg/dL High 0 .00-0.30 Lipase 166 U/L Normal 73-393 Complete Blood Count 06/09/2020 [facility] Chef Manager: [place] [address] [phone] WBC 5.2 x10*3/UL 4.1 - 10.9 RBC [...] Comprehensive Chem Profile 06/09/2020 [facility] Chef Manager: [place] [address] [phone] Glucose 98 mg/dL 74 - 99 1 [...] Ua Dipstick Only 05/30/2020 [facility] , Chef Manager: Dr Marky Syde [place] [id number] [phone] Urine Color YELLOW Yellow Urine Appearance SL. HAZY Abnormal Clear Urine PH 5.0 units 5.0 - 9.0 Urine Specific [place] 1.025 1.005 - 1.030 Urine Leukocytes NEGATIVE Negative Urine Blood NEGATIVE Negative Urine Protein TRACE Negative -Trace Urine Glucose NEGATIVE mg/dL Negative Urine Nitrite NEGATIVE Negative Urine Ketone NEGATIVE mg/dL Negative Urine Bilirubin NEGATIVE Negative Urine Urobilinogen 0.2 mg/dL 0.2 - 1.0 Laboratory test finding 05/30/2020 [facility] Chef Manager: Dr Marky Syed [place], [place] [address] [phone] Sed Rate 35 mm/hr High 0 - 15 Basic Metabolic Profile 05/30/2020 [facility] [address] [place] [address] [phone] Glucose, Fasting 84 mg/dL Normal 70-100 Blood [...] mg/dL Normal 8.8-10.2 Laboratory test finding 05/30/[address] [address] [phone] Thyroid Stimulating Hormone 4.100 uIU/ML High 0. 358-3.740 Lyme Disease SCRN With Confirm 05/30/[address] [address] [phone] Lyme Disease IgG/IgM Antibodie <0.91 ISR Normal 0 .00-0.90 4 Lyme Disease IgM Ab Quantitati <0.80 index Normal 0.00-0.79 5 Laboratory test finding 05/30/[address] [address] [phone] Cyclic Citrullinated Peptide 6 units Normal 0-1 9 6 Rheumatoid Factor Quant < 10.0 IU/mL Normal <15.0 Uric Acid 2.6 mg/dL Low 3.5-7.2 Vitamin B12 Level 859 pg/mL Normal 247-911 7 Antinuclear Antibodies 05/30/[address] [address] [phone] Antinuclear Antibodies Direct Positive Abnormal Ne gative Anti Double Strand-Dna AB <1 IU/mL Normal 0-9 8 DRYCLEANER Antibodies 3.5 AI High 0.0-0.9 Fan Antibodies <0.2 AI Normal 0.0-0.9 Sjogren's Anti SS-A <0.2 AI Normal 0.0-0.9 Sjogren's Anti SS-B <0.2 AI Normal 0.0-0.9 Griselda Comment (SEE NOTE) Normal . 9 Laboratory test finding 05/30/[address] [address] [phone] C Reactive Protein Quantitativ 0.44 mg/dL High 0 .00-0.30 GI Profile PCR So 05/04/2020 [facility] Ce nter [address] [place], [place] [address] [phone] Campylobacter Not Detected 10 C.difficile A/B Not [...] <SEE NOTE> 31 Laboratory test finding 05/04/2020 [facility] [address] [place] [address] [phone] C Reactive Protein Quantitativ 3.85 mg/dL High 0 .00-0.30 Complete Blood Count 05/04/2020 [facility] Chef Manager: [place] [address] [phone] WBC 8.1 x10*3/UL 4.1 - 10.9 RBC [...] - 7.8 Laboratory test finding 05/04/2020 [facility] Chef Manager: [place] [address] [phone] Sed Rate 36 mm/hr High 0 - 15 Comprehensive Chem Profile 05/04/2020 [facility] Chef Manager: Dr Marky Syde [place], [place] [address] [phone] Glucose 101 mg/dL High 74 - 99 [...] Metabolic Panel 12/25/2019 [facility] Chef Manager: [place] [address] [phone] Glucose 92 mg/dL 74 - 99 34 [...] 36 Lipid Profile 12/25/2019 [facility] , Chef Manager: [place] [address] [phone] Cholesterol 91 mg/dL Low 131 - 200 [...] LITTLE GFR LEFT ESRD GFR <15 ON SCOW CAPTAIN 3 Units are mL/min/1.73 m2 Chronic Kidney Disease Staging per NKF: Stage I & II GFR >=60 Normal to Mildly Decreased Stage III GFR 30-59 Moderately Decreased Stage IV GFR 15-29 Severely Decreased Stage V GFR <15 Very Little GFR Left ESRD GFR <15 on SCOW CAPTAIN 4 Negative <0.91 Equivocal 0.91 - 1.09 [...] (anti-Fan) SLE 15 - 30% ------- --------- DRYCLEANER Mixed Connective Tissue Disease 95% (U1 nRNP, SLE 30 - 50% anti-ribonucleoprotein) Polymyositis and/or Dermatomyositis 20% -------- --------- Scl-70 (antiDNA Scleroderma (diffuse) 20 - 35% topoisomerase) Crest 13% -------- --------- Lauryn-1 Polymyositis and/or Dermatomyositis 20 - 40% -------- --------- Centromere B Scleroderma - Crest variant 80% Performed at: [facility] [address] [id number] Chef Manager: Gris Oro MD, Phone: [phone] Performed at: [facility] [id number] Chef Manager: Minh Mora MD, Phone: [phone] 10 11 12 13 14 15 16 17 18 19 20 21 22 23 24 25 26 27 28 29 30 31 Performed at: [facility] [id number] Chef Manager: Minh Mora MD, Phone: [phone] Not Detected 32 100-125 mg/dL PRE-DIABET ES/FASTING >126 mg/dL DIABETES/FASTING 33 CHRONIC KIDNEY DISEASE STAGI NG PER NKF STAGE I & II GFR >= 60 NORMAL TO MILDLY DECREASED STAGE III GFR 30-59 MODERATELY DECREASED STAGE IV GFR 15-29 SEVERELY DECREASED STAGE V GFR <15 VERY LITTLE GFR LEFT ESRD GFR <15 ON SCOW CAPTAIN 34 100-125 mg/dL PRE-DIABET ES/FASTING >126 mg/dL DIABETES/FASTING 35 NOTE: RESULT VERIFIED. 36 CHRONIC KIDNEY DISEASE STAGI NG PER NKF STAGE I & II GFR >= 60 NORMAL TO MILDLY DECREASED STAGE III GFR 30-59 MODERATELY DECREASED STAGE IV GFR 15-29 SEVERELY DECREASED STAGE V GFR <15 VERY LITTLE GFR LEFT ESRD GFR <15 ON SCOW CAPTAIN Procedures Date Code Description Status 05/30/2020 37853 EKG/Interpretation & Report Comp leted 07/15/2017 [id number] Colonoscopy Completed 04/02/2012 [id number] Colonoscopy Completed 01/16/2010 [id number] Colonoscopy Completed Medical Devices Description No Information Available Encounters Type Date Location Provider Dx Diagnosis Office Visit 05/30/2020 2:00p [facility] Nurse #2 Z13.89 Encounter for screening for other disorder Z86.010 Personal history of colonic polyps Office Visit 05/30/2020 2:30p [facility] M.[facility] 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 Yohan iWse JR, [place] R07.89 Other chest pain R19.7 Diarrhea, unspecified R10.811 Right upper quadrant abdomin al tenderness K21.9 Gastro-esophageal reflux dis ease without esophagitis Office Visit 01/01/2020 9:40a [facility] Mikaela banerjee, [employer] D[employer] MAT[employer] MOVER I10 Essential (primary) hypertension E78.00 Pure hypercholesterolemia, [...] 01/01/2020 I10 Essential (primary) hypertension Mikaela Whitley, [facility] 01/01/2020 E78.00 Pure hypercholesterolemia, unspe cified Mikaela Whitley, [facility] 01/01/2020 K21.9 Gastro-esophageal reflux disease without esophagitis Mikaela Whitley, [facility] 01/01/2020 M15.9 Polyosteoarthritis, unspecified Mikaela Cabrerara, [facility] 01/01/2020 M10.9 Gout, unspecified Mikaela Whitley, [facility] 01/01/2020 R97.20 Elevated prostate specific antig en [PSA] Mikaela Whitley, [facility] 01/01/2020 E66.09 Other obesity due to excess grecia rhea Mikaela Whitley, [facility] 01/01/2020 Z68.30 Body mass index (BMI) 30.0-30.9, adult Mikaela Whitley, [facility] 12/25/2019 I10 Essential (primary) hypertension Mikaela Whitley, [facility] 12/25/2019 I10 Essential (primary) hypertension Lab Schedule 12/25/2019 E78.00 Pure hypercholesterolemia, unspe cified Mikaela Whitley, [facility] 12/25/2019 E78.00 Pure hypercholesterolemia, unspe cified Lab Schedule Plan of Treatment Future Appointment(s):* 07/04/2020 10:45 am - [facility] 05/30/2020 - Sandrita Nix M.D.* [...] Migraines. Improved. I have approved using Excedrin . OA/DJD, chronic low back pain. Evaluate inflammatory [id number]. Health Maintenance. Medicare Wellness paperwork reviewed including [...] MD CONSULT FOR DIARRHEA Patient Notified [address] [facility] [id number] [phone] [facility] Pulmonary Medicine CONSULT FOR SLEEP STUDY FOR CHIDI SYMPTONS Sent [phone] [place] [address] [phone]
--- OUTSIDE RECORDS SUMMARY | 2020-06-22 10:14 | CCD | Continuity of Care Document ---
Author Author Nurse #Valentin Kaur Organization Unknown Address [address] [address] Phone Unavailable Care Team Providers Care Accounting Assistant Name Role Phone Keyana Alcaraz ANP AUTM [phone] [facility] AUTM Unavailable Cy Conde MD AUTM [phone] Sandrita Nix MD AUTM [phone] Problems Active Problems Provider Date Essential hypertension [...] Nix M.D. 0 08/30/2015 Calcium Citrate +D [id number] Tablets 1 po qd Sandrita Nix M.D. 06/27/19 16 Vitamin D3 2000Unit Tablets 1 by mouth every day Keyana Alcaraz FNP 04/29/2015 Multi-Vitamin Tablets 2 by mouth every day Sandrita Nix M.D. 05/01/20 10 Losartan Potassium 25mg Tablets 1/2 po qd Dc Keyana Alcaraz FNP Febuxostat 80mg Tablets take [...] Given 02/24/2019 Influenza,Unspecified U-Flu Given 02/14/2018 Influenza,Unspecified 59909 Given 11/27/2016 Adacel- Tetanus Diphtheria P ertussis (Age64 & Under) [id number] 45556 Given 06/08/2014 Prevnar 13 [id number] Q2037 Given 03/31/2014 Fluvirin Virus Vaccine 76619 21 Q2037 Given 03/27/2012 Fluvirin Virus Vaccine Q2037 Given 03/02/2011 Fluvirin Virus Vaccine Q2037 Given 03/02/2011 Fluvirin Virus Vaccine 77994 Given 11/02/2008 Zoster Vaccine 34130 Given 03/18/2008 Influenza Virus Vaccine 10220 Given 03/21/2005 Influenza Virus Vaccine Vital Signs [...] Result H/L Range Note Laboratory test finding 05/30/2020 [place] [id number] [phone] C Reactive Protein Quantitativ 0.44 mg/dL High 0 .00-0.30 Antinuclear Antibodies 05/30/[address] [address] [phone] Antinuclear Antibodies Direct Positive Abnormal Ne gative Anti Double Strand-Dna AB <1 IU/mL Normal 0-9 1 HEAD BELLHOP CAPTAIN Antibodies 3.5 AI High 0.0-0.9 Fan Antibodies <0.2 AI Normal 0.0-0.9 Sjogren's Anti SS-A <0.2 AI Normal 0.0-0.9 Sjogren's Anti SS-B <0.2 AI Normal 0.0-0.9 Griselda Comment (SEE NOTE) Normal . 2 Laboratory test finding 05/30/[address] [address] [phone] Cyclic Citrullinated Peptide 6 units Normal 0-1 9 3 Rheumatoid Factor Quant < 10.0 IU/mL Normal <15.0 Uric Acid 2.6 mg/dL Low 3.5-7.2 Vitamin B12 Level 859 pg/mL Normal 247-911 4 Lyme Disease SCRN With Confirm 05/30/[address] [address] [phone] Lyme Disease IgG/IgM Antibodie <0.91 ISR Normal 0 .00-0.90 5 Lyme Disease IgM Ab Quantitati <0.80 index Normal 0.00-0.79 6 Laboratory test finding 05/30/[address] [address] [phone] Thyroid Stimulating Hormone 4.100 uIU/ML High 0. 358-3.740 Basic Metabolic Profile 05/30/2020 [facility] [address] [place] [address] [phone] Glucose, Fasting 84 mg/dL Normal 70-100 Blood Urea Nitrogen 24 mg/dL High 7-18 Creatinine For GFR 1.43 mg/dL High 0.70-1.30 Glomerular Filtration Rate 51.6 Normal >42 7 Sodium Level 141 mEq/L Normal 136-145 Potassium Serum 4.2 mEq/L Normal 3.5-5.1 Chloride Level 105 mEq/L Normal 98-107 Carbon Dioxide Level 32 mEq/L Normal 21-32 Anion Gap 4 mEq/L Low 8-16 Calcium Level 9.2 mg/dL Normal 8.8-10.2 Laboratory test finding 05/30/2020 [facility], Counter Hand: [place] [address] [phone] Sed Rate 35 mm/hr High 0 - 15 Ua Dipstick Only 05/30/2020 [facility] , Counter Hand: [place] [address] [phone] Urine Color YELLOW Yellow Urine Appearance SL. HAZY Abnormal Clear Urine PH 5.0 units 5.0 - 9.0 Urine Specific Whiteface 1.025 1.005 - 1.030 Urine Leukocytes NEGATIVE Negative Urine Blood NEGATIVE Negative Urine Protein TRACE Negative -Trace Urine Glucose NEGATIVE mg/dL Negative Urine Nitrite NEGATIVE Negative Urine Ketone NEGATIVE mg/dL Negative Urine Bilirubin NEGATIVE Negative Urine Urobilinogen 0.2 mg/dL 0.2 - 1.0 Comprehensive Chem Profile 05/04/2020 [facility], Counter Hand: [place] [address] [phone] Glucose 101 mg/dL High 74 - 99 8 BUN 16 mg/dL 7 - 18 Creatinine [...] Low >60 GFR >= 60 mL/min >60 9 Laboratory test finding 05/04/2020 [facility] Counter Hand: [place] [address] [phone] Sed Rate 36 mm/hr High 0 - 15 Complete Blood Count 05/04/2020 [facility] Counter Hand: [place] [address] [phone] WBC 8.1 x10*3/UL 4.1 - 10.9 RBC [...] 2.0 - 7.8 Laboratory test finding 05/04/2020 [facility] [address] [place] [address] [phone] C Reactive Protein Quantitativ 3.85 mg/dL High 0 .00-0.30 GI Profile PCR So 05/04/2020 [facility] nter [address] [place] [address] [phone] Campylobacter Not Detected 10 C.difficile A/B Not [...] Saprovirus Performed at: B <SEE NOTE> 31 Basic Metabolic Panel 12/25/2019 [facility] Counter Hand: [place] [address] [phone] Glucose 92 mg/dL 74 - 99 32 BUN 13 mg/dL 7 - 18 Creatinine 1.4 mg/dL High 0.6 - 1.3 Sodium 145 mEq/L 136 - 145 Potassium 4.2 mEq/L 3.5 - 5.1 Chloride 107 mEq/L 98 - 107 Carbon Dioxide 28 mEq/L 21 - 32 Calcium 8.2 mg/dL Low 8.5 - 10.1 33 GFR 50 mL/min Low >60 GFR >= 60 mL/min >60 34 Lipid Profile 12/25/2019 [facility] Counter Hand: [place] [address] [phone] Cholesterol 91 mg/dL Low 131 - 200 Triglycerides 102 mg/dL 30 - 150 HDL Cholesterol 31 mg/dL Low 35 - 60 LDL (Calculated) 40 CALC Low 50 - 159 1 Negative <5 Equivocal 5 - 9 Positive >9 2 . Autoantibody Disease Association Condition Frequency -------- [...] (anti-Fan) SLE 15 - 30% ------- --------- HEAD BELLHOP CAPTAIN Mixed Connective Tissue Disease 95% (U1 nRNP, SLE 30 - 50% anti-ribonucleoprotein) Polymyositis and/or Dermatomyositis 20% -------- --------- Scl-70 (antiDNA Scleroderma (diffuse) 20 - 35% topoisomerase) Crest 13% -------- --------- Lauryn-1 Polymyositis and/or Dermatomyositis 20 - 40% -------- --------- Centromere B Scleroderma - Crest variant 80% Performed at: - [facility] [address] [id number] Counter Hand: Gris Oro MD, Phone: [phone] Performed at: - [facility] [address] [id number] Counter Hand: Minh Mora MD, Phone: [phone] Negative <20 Weak positive 20 - 39 Moderate positive 40 - 59 Strong positive >59 4 VITAMIN B12 NORMAL RANGE NORMAL 247 - 911 PG/ML INDETERMINATE 211 - 246 PG/ML DEFICIENT LESS THAN 211 PG/ML 5 Negative <0.91 Equivocal 0.91 - 1.09 Positive >1.09 6 Negative <0.80 Equivocal 0.80 - 1.19 Positive >1.19 . IgM levels may peak at 3-6 weeks post infection, then gradually decline. 7 Units are mL/min/1.73 m2 Chronic Kidney Disease Staging per NKF: Stage I & II GFR >=60 Normal to Mildly Decreased Stage III GFR 30-59 Moderately Decreased Stage IV GFR 15-29 Severely Decreased Stage V GFR <15 Very Little GFR Left ESRD GFR <15 on FOOTBALL PAD REPAIRER 8 100-125 mg/dL PRE-DIABET ES/FASTING >126 mg/dL DIABETES/FASTING 9 CHRONIC KIDNEY DISEASE STAGI NG PER NKF STAGE I & II GFR >= 60 NORMAL TO MILDLY DECREASED STAGE III GFR 30-59 MODERATELY DECREASED STAGE IV GFR 15-29 SEVERELY DECREASED STAGE V GFR <15 VERY LITTLE GFR LEFT ESRD GFR <15 ON FOOTBALL PAD REPAIRER 10 11 12 13 14 15 16 17 18 19 20 21 22 23 24 25 26 27 28 29 30 31 Performed at: [facility] [address] [id number] Counter Hand: Minh Mora MD, Phone: [phone] Not Detected 32 100-125 mg/dL PRE-DIABET ES/FASTING >126 mg/dL DIABETES/FASTING 33 NOTE: RESULT VERIFIED. 34 CHRONIC KIDNEY DISEASE STAGI NG PER NKF STAGE I & II GFR >= 60 NORMAL TO MILDLY DECREASED STAGE III GFR 30-59 MODERATELY DECREASED STAGE IV GFR 15-29 SEVERELY DECREASED STAGE V GFR <15 VERY LITTLE GFR LEFT ESRD GFR <15 ON FOOTBALL PAD REPAIRER Procedures Date Code Description Status 05/30/2020 72194 EKG/Interpretation & Report Comp leted 07/15/2017 [id number] Colonoscopy Completed 04/02/2012 [id number] Colonoscopy Completed 01/16/2010 [id number] Colonoscopy Completed Medical Devices Description No Information Available Encounters Type Date Location Provider Dx Diagnosis Office Visit 05/30/2020 2:00p [facility] Nurse #2 Z13.89 Encounter for screening for other disorder Z86.010 Personal history of colonic polyps Office Visit 05/30/2020 2:30p [facility] Shawn Nix M.D. K52.3 Indeterminate [...] [BMI]30.0-30 .9, adult Office Visit 05/04/2020 1:20p [facility] Yohan Wise JR, PA R07.89 Other chest pain R19.7 Diarrhea, unspecified R10.811 Right upper quadrant abdomin al tenderness K21.9 Gastro-esophageal reflux dis ease without esophagitis Office Visit 01/01/2020 9:40a [facility] Mikaela banerjee, [facility] I10 Essential (primary) hypertension E78.00 Pure hypercholesterolemia, [...] 01/01/2020 I10 Essential (primary) hypertension Mikaela Whitley, [facility] 01/01/2020 E78.00 Pure hypercholesterolemia, unspe cified Mikaela Gutierrez, [facility] 01/01/2020 K21.9 Gastro-esophageal reflux disease without esophagitis Mikaela Cabrerara, [facility] 01/01/2020 M15.9 Polyosteoarthritis, unspecified Mikaela Gutierrez, [facility] 01/01/2020 M10.9 Gout, unspecified Mikaela Gutierrez, [facility] 01/01/2020 R97.20 Elevated prostate specific antig en [PSA] Mikaela Whitley, [facility] 01/01/2020 E66.09 Other obesity due to excess grecia rhea Mikaela Whitley, [facility] 01/01/2020 Z68.30 Body mass index (BMI) 30.0-30.9, adult Mikaela Whitley, [facility] 12/25/2019 I10 Essential (primary) hypertension Mikaela Gutierrez, [facility] 12/25/2019 I10 Essential (primary) hypertension Lab Schedule 12/25/2019 E78.00 Pure hypercholesterolemia, unspe cified Mikaela Gutierrez, [facility] 12/25/2019 E78.00 Pure hypercholesterolemia, unspe cified Lab Schedule Plan of Treatment Future Appointment(s):* 07/04/2020 10:45 am - Sandrita Nix M.D. at [facility] 05/30/2020 - Sandrita Nix M.D.* K52.3 [...] Migraines. Improved. I have approved using Excedrin [id number]. OA/DJD, chronic low back pain. Evaluate inflammatory [id number]. Health Maintenance. Medicare Wellness paperwork reviewed including [...] MD CONSULT FOR DIARRHEA Patient Notified [address] [facility] [address] [phone] [facility] Pulmonary Medicine CONSULT FOR SLEEP STUDY FOR [place] Sent [phone] [place] [address] [phone]
--- OUTSIDE RECORDS SUMMARY | 2020-06-22 10:14 | CCD | Continuity of Care Document ---
Author Author Valentin Nix M.D. Organization Unknown Address [address] [address] Phone [phone] Care Team Providers Care Supervisor Pre Wave Name Role Phone Keyana Alcaraz AUTM [phone] [facility] AUTM Unavailable Cy Conde MD AUTM [phone] Sandrita Nix MD AUTM [phone] Problems Active Problems Provider Date Essential hypertension Keyana Alcaraz FNP Onset: 08/03/2012 Pure hyperglyceridemia Keyana Aclaraz FNP Onset: 08/03/2012 Chronic kidney disease stage [...] Nix M.D. 0 08/30/2015 Calcium Citrate +D [id number]-[id number] Tablets 1 po qd Sandrita Nix M.D. 06/27/19 16 Vitamin D3 2000Unit Tablets 1 by mouth every day Keyana Alcaraz FNP 04/29/2015 Multi-Vitamin Tablets 2 by mouth every day Sandrita Nix M.D. 05/01/20 10 Losartan Potassium 25mg Tablets 1/2 po qd [place] Keyana Alcaraz FNP Febuxostat 80mg Tablets take 1 tablets by mouth daily [place] Unknown History Medications Asacol HD 800mg Tablets [...] Given 02/24/2019 Influenza,Unspecified U-Flu Given 02/14/2018 Influenza,Unspecified 99302 Given 11/27/2016 Adacel- Tetanus Diphtheria P ertussis (Age64 & Under) [id number] 43013 Given 06/08/2014 Prevnar 13 F99432 Q2037 Given 03/31/2014 Fluvirin Virus Vaccine 96058 21 Q2037 Given 03/27/2012 Fluvirin Virus Vaccine Q2037 Given 03/02/2011 Fluvirin Virus Vaccine Q2037 Given 03/02/2011 Fluvirin Virus Vaccine 51305 Given 11/02/2008 Zoster Vaccine 04681 Given 03/18/2008 Influenza Virus Vaccine 79532 Given 03/21/2005 Influenza Virus Vaccine Vital Signs Date Vital Result Comment 05/30/2020 1:58pm BP Systolic 110 mmHg BP Diastolic 60 mmHg Heart Rate 94 /min Height 65.25 inches 5'5.25" Weight 183.50 lb BMI (Body Mass Index) 30.3 kg/m2 05/04/2020 1:07pm BP Systolic 110 mmHg BP Diastolic 78 mmHg Heart Rate 76 /min Height 65.25 inches 5'5.25" Weight 186.00 lb BMI (Body Mass Index) 30.7 kg/m2 Results Test Acquired Date Facility Test Result H/L Range Note GI Profile PCR So 05/04/2020 [facility] nter [address] [place] [address] [phone] Campylobacter Not Detected 1 C.difficile A/B Not Detected 2 Plesiomonas shigelloides Not Detected 3 Salmonella Not Detected 4 Vibro Not Detected 5 Vibrio cholerae Not Detected 6 Yersinia enterocolitica Not Detected 7 Enteroaggregative Ecoli Not Detected 8 Entropathogenic Ecoli Not Detected 9 Enterotoxigenic Ecoli Not Detected 10 Shiga toxin producing Ecoli Not Detected 11 E coli 0157 Not applicable 12 Shigella Entroinvasive Ecoli Not Detected 13 Cryptosporidium Not Detected 14 Cyclospora cayetanensis Not Detected 15 Entamoeba histolytica Not Detected 16 Giardia lamblia Not Detected 17 Adenovirus F 40/41 Not Detected 18 Astrovirus Not Detected 19 Norovirus GI/Gii Not Detected 20 Rotavirus A Not Detected 21 Saprovirus Performed at: B <SEE NOTE> 22 Laboratory test finding 05/04/2020 [facility] [address] [place] [address] [phone] C Reactive Protein Quantitativ 3.85 mg/dL High 0 .00-0.30 Complete Blood Count 05/04/2020 [facility] Engraved Roller Inspector: [place] [address] [phone] WBC 8.1 x10*3/UL 4.1 - 10.9 RBC [...] 2.0 - 7.8 Laboratory test finding 05/04/2020 [facility] Engraved Roller Inspector: Dr Marky Syed [place] [id number] [phone] Sed Rate 36 mm/hr High 0 - 15 Comprehensive Chem Profile 05/04/2020 [facility] Engraved Roller Inspector: [place] [address] [phone] Glucose 101 mg/dL High 74 - 99 23 BUN 16 mg/dL 7 - 18 Creatinine [...] Low >60 GFR >= 60 mL/min >60 24 Basic Metabolic Panel 12/25/2019 [facility] Engraved Roller Inspector: [place] [address] [phone] Glucose 92 mg/dL 74 - 99 25 BUN 13 mg/dL 7 - 18 Creatinine 1.4 mg/dL High 0.6 - 1.3 Sodium 145 mEq/L 136 - 145 Potassium 4.2 mEq/L 3.5 - 5.1 Chloride 107 mEq/L 98 - 107 Carbon Dioxide 28 mEq/L 21 - 32 Calcium 8.2 mg/dL Low 8.5 - 10.1 26 GFR 50 mL/min Low >60 GFR >= 60 mL/min >60 27 Lipid Profile 12/25/2019 [facility] Engraved Roller Inspector: [place] [address] [phone] Cholesterol 91 mg/dL Low 131 - 200 Triglycerides 102 mg/dL 30 - 150 HDL Cholesterol 31 mg/dL Low 35 - 60 LDL (Calculated) 40 CALC Low 50 - 159 1 2 3 4 5 6 7 8 9 10 11 12 13 14 15 16 17 18 19 20 21 22 Performed at: [facility] [id number] Engraved Roller Inspector: Minh Mora MD, Phone: [phone] Not Detected 23 100-125 mg/dL PRE-DIABET ES/FASTING >126 mg/dL DIABETES/FASTING 24 CHRONIC KIDNEY DISEASE STAGI NG PER NKF STAGE I & II GFR >= 60 NORMAL TO MILDLY DECREASED STAGE III GFR 30-59 MODERATELY DECREASED STAGE IV GFR 15-29 SEVERELY DECREASED STAGE V GFR <15 VERY LITTLE GFR LEFT ESRD GFR <15 ON SEATER ASSEMBLER 25 100-125 mg/dL PRE-DIABET ES/FASTING >126 mg/dL DIABETES/FASTING 26 NOTE: RESULT VERIFIED. 27 CHRONIC KIDNEY DISEASE STAGI NG PER NKF STAGE I & II GFR >= 60 NORMAL TO MILDLY DECREASED STAGE III GFR 30-59 MODERATELY DECREASED STAGE IV GFR 15-29 SEVERELY DECREASED STAGE V GFR <15 VERY LITTLE GFR LEFT ESRD GFR <15 ON SEATER ASSEMBLER Procedures Date Code Description Status 07/15/2017 [id number] Colonoscopy Completed 04/02/2012 [id number] Colonoscopy Completed 01/16/2010 [id number] Colonoscopy Completed Medical Devices Description No Information Available Encounters Type Date Location Provider Dx Diagnosis Office Visit 05/04/2020 1:20p [facility] Yohan Wise JR, PA R07.89 Other chest pain R19.7 Diarrhea, unspecified R10.811 Right upper quadrant abdomin al tenderness K21.9 Gastro-esophageal reflux dis ease without esophagitis Office Visit 01/01/2020 9:40a [facility] Mikaela banerjee, [facility] I10 Essential (primary) hypertension E78.00 Pure hypercholesterolemia, u nspecified K21.9 Gastro-esophageal reflux dis ease without esophagitis M15.9 Polyosteoarthritis, unspecif ied M10.9 Gout, unspecified R97.20 Elevated prostate specific a ntigen [PSA] E66.09 Other obesity due to excess calories Z68.30 Body mass index (BMI) 30.0-3 0.9, adult Assessments Date Code Description Provider 05/04/2020 R07.89 Other chest pain Rao sampson JR, PA 05/04/2020 R19.7 Diarrhea, unspecified Rao ramírez JR, PA 05/04/2020 R10.811 Right upper quadrant abdominal t enderness Roa Wise JR PA 05/04/2020 K21.9 Gastro-esophageal reflux disease without esophagitis Rao Wise JR, PA 01/01/2020 I10 Essential (primary) hypertension Mikaela Whitley, [facility] 01/01/2020 E78.00 Pure hypercholesterolemia, unspe cified Mikaela Gutierrez, [facility] 01/01/2020 K21.9 Gastro-esophageal reflux disease without esophagitis Mikaela Cabrerara, [facility] 01/01/2020 M15.9 Polyosteoarthritis, unspecified Mikaela Gutierrez, [facility] 01/01/2020 M10.9 Gout, unspecified Mikaela Gutierrez, [facility] 01/01/2020 R97.20 Elevated prostate specific antig en [PSA] Mikaela Cabrerara, [facility] 01/01/2020 E66.09 Other obesity due to excess grecia rhea Mikaela Cabrerara, [facility] 01/01/2020 Z68.30 Body mass index (BMI) 30.0-30.9, adult Mikaela Whitley, [facility] 12/25/2019 I10 Essential (primary) hypertension Mikaela Gutierrez, [facility] 12/25/2019 I10 Essential (primary) hypertension Lab Schedule 12/25/2019 E78.00 Pure hypercholesterolemia, unspe cified Mikaela Gutierrez, [facility] 12/25/2019 E78.00 Pure hypercholesterolemia, unspe cified Lab Schedule Plan of Treatment Future Appointment(s):* 07/12/2020 2:00 pm - [facility] 05/30/2020 - Sandrita Nix M.D.* All * New Medication:* Atorvastatin Calcium 20 mg - 1 by mouth every day * Coenzyme Q-10 200 mg - qd Functional Status Description No Information Available Mental Status Description No Information Available Referrals Description No Information Available
--- OUTSIDE RECORDS SUMMARY | 2020-06-22 10:14 | CCD | Continuity of Care Document ---
Author Author Valentin Nix M.D. Organization Unknown Address [address] [address] Phone [phone] Care Team Providers Care Senior Teradata Developer Name Role Phone Keyana Alcaraz AUTM [phone] [facility] AUTM Unavailable Cy Conde MD AUTM [phone] Sandrita Nix MD AUTM [phone] Problems Active Problems Provider Date Essential hypertension [...] Nix M.D. 0 08/30/2015 Calcium Citrate +D [id number]-[id number] Tablets 1 po qd Sandrita Nix M.D. 06/27/19 16 Vitamin D3 2000Unit Tablets 1 by mouth every day Keyana Alcaraz FNP 04/29/2015 Multi-Vitamin Tablets 2 by mouth every day Sandrita Nix M.D. 05/01/20 10 Losartan Potassium 25mg Tablets 1/2 po qd La Keyana Alcaraz FNP Febuxostat 80mg Tablets take 1 tablets by mouth daily La Unknown History Medications Asacol HD 800mg Tablets [...] Given 02/24/2019 Influenza,Unspecified U-Flu Given 02/14/2018 Influenza,Unspecified 83733 Given 11/27/2016 Adacel- Tetanus Diphtheria P ertussis (Age64 & Under) [id number] 12227 Given 06/08/2014 Prevnar 13 [id number] Q2037 Given 03/31/2014 Fluvirin Virus Vaccine 95232 21 Q2037 Given 03/27/2012 Fluvirin Virus Vaccine Q2037 Given 03/02/2011 Fluvirin Virus Vaccine Q2037 Given 03/02/2011 Fluvirin Virus Vaccine 82453 Given 11/02/2008 Zoster Vaccine 70142 Given 03/18/2008 Influenza Virus Vaccine 75724 Given 03/21/2005 Influenza Virus Vaccine Vital Signs [...] H/L Range Note Laboratory test finding 05/30/[address] [address] [phone] C Reactive Protein Quantitativ 0.44 mg/dL High 0 .00-0.30 Antinuclear Antibodies 05/30/[address] [address] [phone] Antinuclear Antibodies Direct Positive Abnormal Ne gative Anti Double Strand-Dna AB <1 IU/mL Normal 0-9 1 WELDER FIRST CLASS Antibodies 3.5 AI High 0.0-0.9 Fan Antibodies <0.2 AI Normal 0.0-0.9 Sjogren's Anti SS-A <0.2 AI Normal 0.0-0.9 Sjogren's Anti SS-B <0.2 AI Normal 0.0-0.9 Griselda Comment (SEE NOTE) Normal . 2 Laboratory test finding 05/30/[address] [address] [phone] Cyclic Citrullinated Peptide 6 units Normal 0-1 9 3 Rheumatoid Factor Quant < 10.0 IU/mL Normal <15.0 Uric Acid 2.6 mg/dL Low 3.5-7.2 Vitamin B12 Level 859 pg/mL Normal 247-911 4 Lyme Disease SCRN With Confirm 05/30/[address] [address] [phone] Lyme Disease IgG/IgM Antibodie <0.91 ISR Normal 0 .00-0.90 5 Lyme Disease IgM Ab Quantitati <0.80 index Normal 0.00-0.79 6 Laboratory test finding 05/30/2020 [facility] [address] [place], [place] [id number] [phone] Thyroid Stimulating Hormone 4.100 uIU/ML High 0. 358-3.740 Basic Metabolic Profile 05/30/2020 [place] [address] [place] 1304460 [phone] Glucose, Fasting 84 mg/dL Normal 70-100 Blood [...] mg/dL Normal 8.8-10.2 Laboratory test finding 05/30/2020 [facility] rae, Resourcing Advisor: Dr Marky Syed [place] [id number] [phone] Sed Rate 35 mm/hr High 0 - 15 Ua Dipstick Only 05/30/2020 [facility] , candy Resourcing Advisor: [place] [address] [phone] Urine Color YELLOW Yellow Urine Appearance SL. HAZY Abnormal Clear Urine PH 5.0 units 5.0 - 9.0 Urine Specific [place] 1.025 1.005 - 1.030 Urine Leukocytes NEGATIVE Negative Urine Blood NEGATIVE Negative Urine Protein TRACE Negative -Trace Urine Glucose NEGATIVE mg/dL Negative Urine Nitrite NEGATIVE Negative Urine Ketone NEGATIVE mg/dL Negative Urine Bilirubin NEGATIVE Negative Urine Urobilinogen 0.2 mg/dL 0.2 - 1.0 Comprehensive Chem Profile 05/04/2020 [facility], candy Resourcing Advisor: [place] [address] [phone] Glucose 101 mg/dL High 74 - 99 [...] mL/min >60 9 Laboratory test finding 05/04/2020 [facility] rae, pc Resourcing Advisor: [place] [address] [phone] Sed Rate 36 mm/hr High 0 - 15 Complete Blood Count 05/04/2020 [facility] Development Program Director alice pc Resourcing Advisor: [place] [address] [phone] WBC 8.1 x10*3/UL 4.1 - 10.9 RBC [...] 2.0 - 7.8 Laboratory test finding 05/04/2020 [facility] [address] [place] [address] [phone] C Reactive Protein Quantitativ 3.85 mg/dL High 0 .00-0.30 GI Profile PCR So 05/04/2020 [facility] nter [address] [place] [address] [phone] Campylobacter Not Detected 10 C.difficile A/B Not [...] <SEE NOTE> 31 Basic Metabolic Panel 12/25/2019 [facility] Resourcing Advisor: [place] [address] [phone] Glucose 92 mg/dL 74 - 99 32 [...] 60 mL/min >60 34 Lipid Profile 12/25/2019 [facility] Resourcing Advisor: [place] [address] [phone] Cholesterol 91 mg/dL Low 131 - 200 [...] (anti-Fan) SLE 15 - 30% ------- --------- WELDER FIRST CLASS Mixed Connective Tissue Disease 95% (U1 nRNP, SLE 30 - 50% anti-ribonucleoprotein) Polymyositis and/or Dermatomyositis 20% -------- --------- Scl-70 (antiDNA Scleroderma (diffuse) 20 - 35% topoisomerase) Crest 13% -------- --------- Lauryn-1 Polymyositis and/or Dermatomyositis 20 - 40% -------- --------- Centromere B Scleroderma - Crest variant 80% Performed at: RN - [facility] [address] [id number] Resourcing Advisor: Gris Oro MD, Phone: [phone] Performed at: - [facility] [address] [id number] Resourcing Advisor: Minh Mora MD, Phone: [phone] 3 Negative <20 Weak positive 20 - [...] Little GFR Left ESRD GFR <15 on SCRIPT READER 8 100-125 mg/dL PRE-DIABET ES/FASTING >126 mg/dL DIABETES/FASTING 9 CHRONIC KIDNEY DISEASE STAGI NG PER NKF STAGE I & II GFR >= 60 NORMAL TO MILDLY DECREASED STAGE III GFR 30-59 MODERATELY DECREASED STAGE IV GFR 15-29 SEVERELY DECREASED STAGE V GFR <15 VERY LITTLE GFR LEFT ESRD GFR <15 ON SCRIPT READER 10 11 12 13 14 15 16 17 18 19 20 21 22 23 24 25 26 27 28 29 30 31 Performed at: - [facility] [address] [id number] Resourcing Advisor: Minh Mora MD, Phone: [phone] Not Detected 32 100-125 mg/dL PRE-DIABET ES/FASTING >126 mg/dL DIABETES/FASTING 33 NOTE: RESULT VERIFIED. 34 CHRONIC KIDNEY DISEASE STAGI NG PER NKF STAGE I & II GFR >= 60 NORMAL TO MILDLY DECREASED STAGE III GFR 30-59 MODERATELY DECREASED STAGE IV GFR 15-29 SEVERELY DECREASED STAGE V GFR <15 VERY LITTLE GFR LEFT ESRD GFR <15 ON SCRIPT READER Procedures Date Code Description Status 05/30/2020 35110 EKG/Interpretation & Report Comp leted 07/15/2017 [id number] Colonoscopy Completed 04/02/2012 [id number] Colonoscopy Completed 01/16/2010 [id number] Colonoscopy Completed Medical Devices Description No Information Available Encounters Type Date Location Provider Dx Diagnosis Office Visit 05/30/2020 2:30p [facility] Shawn Nix M.D. K52.3 Indeterminate [...] [BMI]30.0-30 .9, adult Office Visit 05/04/2020 1:20p [facility] Yohan Wise JR, PA R07.89 Other chest pain R19.7 Diarrhea, unspecified R10.811 Right upper quadrant abdomin al tenderness K21.9 Gastro-esophageal reflux dis ease without esophagitis Office Visit 01/01/2020 9:40a [facility] 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 [...] 05/04/2020 R07.89 Other chest pain Rao sampson JR PA 05/04/2020 R19.7 Diarrhea, unspecified TETE Fish JR 05/04/2020 R10.811 Right upper quadrant abdominal t enderness TETE Benavidez JR 05/04/2020 K21.9 Gastro-esophageal reflux disease without esophagitis TETE Benavidez JR 01/01/2020 I10 Essential (primary) hypertension Mikaela Whitley, [facility] 01/01/2020 E78.00 Pure hypercholesterolemia, unspe cified Mikaela Cabrerara, [facility] 01/01/2020 K21.9 Gastro-esophageal reflux disease without esophagitis Mikaela Cabrerara, [facility] 01/01/2020 M15.9 Polyosteoarthritis, unspecified Mikaela Gutierrez, [facility] 01/01/2020 M10.9 Gout, unspecified Mikaela Cabrerara, [facility] 01/01/2020 R97.20 Elevated prostate specific antig en [PSA] Mikaela Whiltey, [facility] 01/01/2020 E66.09 Other obesity due to excess grecia rhea Mikaela Whitley, [facility] 01/01/2020 Z68.30 Body mass index (BMI) 30.0-30.9, adult Mikaela Cabrerara, [facility] 12/25/2019 I10 Essential (primary) hypertension Mikaela Cabrerara, [facility] 12/25/2019 I10 Essential (primary) hypertension Lab Schedule 12/25/2019 E78.00 Pure hypercholesterolemia, unspe cified Mikaela Cabrerara, [facility] 12/25/2019 E78.00 Pure hypercholesterolemia, unspe cified Lab Schedule Plan of Treatment Future Appointment(s):* 07/04/2020 10:45 am - Sandrita Nix M.D. at [facility] 05/30/2020 - Sandrita Nix M.D.* [...] Migraines. Improved. I have approved using Excedrin [id number]. OA/DJD, chronic low back pain. Evaluate inflammatory [id number]. Health Maintenance. Medicare Wellness paperwork reviewed including [...] MD CONSULT FOR DIARRHEA Patient Notified [address] [facility] [address] [phone] [facility] Pulmonary Medicine CONSULT FOR SLEEP STUDY FOR CHIDI [place] [address] [place] [address] [phone]
--- OUTSIDE RECORDS SUMMARY | 2020-06-22 10:14 | CCD | Continuity of Care Document ---
Author Author Lab Schedule, Valentin Organization Unknown Address [address] [place] [address] Phone Unavailable Care Team Providers Care Assistant County Engineer Name Role Phone Keyana Alcaraz AUTM [phone] [facility] AUTM Unavailable Cy Conde MD AUTM [phone] Sandrita Nix MD AUTM [phone] Jose Valentin MD AUTM [phone] Problems Active Problems Provider Date Essential hypertension [...] Nix M.D. 0 08/30/2015 Calcium Citrate +D [id number]-Womf Tablets 1 po qd Sandrita Nix M.D. [...] Given 02/24/2019 Influenza,Unspecified U-Flu Given 02/14/2018 Influenza,Unspecified 08523 Given 11/27/2016 Adacel- Tetanus Diphtheria P ertussis (Age64 & Under) [id number] 50850 Given 06/08/2014 Prevnar 13 H47727 Q2037 Given 03/31/2014 Fluvirin Virus Vaccine 15147 21 Q2037 Given 03/27/2012 Fluvirin Virus Vaccine Q2037 Given 03/02/2011 Fluvirin Virus Vaccine Q2037 Given 03/02/2011 Fluvirin Virus Vaccine 55240 Given 11/02/2008 Zoster Vaccine 71605 Given 03/18/2008 Influenza Virus Vaccine 99897 Given 03/21/2005 Influenza Virus Vaccine Vital Signs [...] H/L Range Note Laboratory test finding 06/09/2020 [place] [address] [place] [address] [phone] High Sensitivity C-Reactive Protein <pending> Lipase <pending> Ua Dipstick Only 05/30/2020 [facility] Cnc Laser Operator: [place] [address] [phone] Urine Color YELLOW Yellow Urine Appearance SL. HAZY Abnormal Clear Urine PH 5.0 units 5.0 - 9.0 Urine Specific [place] 1.025 1.005 - 1.030 Urine Leukocytes NEGATIVE Negative Urine Blood NEGATIVE Negative Urine Protein TRACE Negative -Trace Urine Glucose NEGATIVE mg/dL Negative Urine Nitrite NEGATIVE Negative Urine Ketone NEGATIVE mg/dL Negative Urine Bilirubin NEGATIVE Negative Urine Urobilinogen 0.2 mg/dL 0.2 - 1.0 Laboratory test finding 05/30/2020 [facility] Cnc Laser Operator: [place] [address] [phone] Sed Rate 35 mm/hr High 0 - 15 Basic Metabolic Profile 05/30/2020 [facility] [address] [place] [address] [phone] Glucose, Fasting 84 mg/dL Normal 70-100 Blood Urea Nitrogen 24 mg/dL High 7-18 Creatinine For GFR 1.43 mg/dL High 0.70-1.30 Glomerular Filtration Rate 51.6 Normal >42 1 Sodium Level 141 mEq/L Normal 136-145 Potassium Serum 4.2 mEq/L Normal 3.5-5.1 Chloride Level 105 mEq/L Normal 98-107 Carbon Dioxide Level 32 mEq/L Normal 21-32 Anion Gap 4 mEq/L Low 8-16 Calcium Level 9.2 mg/dL Normal 8.8-10.2 Laboratory test finding 05/30/[address] [address] [phone] Thyroid Stimulating Hormone 4.100 uIU/ML High 0. 358-3.740 Lyme Disease SCRN With Confirm 05/30/[address] [address] [phone] Lyme Disease IgG/IgM Antibodie <0.91 ISR Normal 0 .00-0.90 2 Lyme Disease IgM Ab Quantitati <0.80 index Normal 0.00-0.79 3 Laboratory test finding 05/30/[address] [address] [phone] Cyclic Citrullinated Peptide 6 units Normal 0-1 9 4 Rheumatoid Factor Quant < 10.0 IU/mL Normal <15.0 Uric Acid 2.6 mg/dL Low 3.5-7.2 Vitamin B12 Level 859 pg/mL Normal 247-911 5 Antinuclear Antibodies 05/30/[address] [address] [phone] Antinuclear Antibodies Direct Positive Abnormal Ne gative Anti Double Strand-Dna AB <1 IU/mL Normal 0-9 6 MOTH PROOFER Antibodies 3.5 AI High 0.0-0.9 Fna Antibodies <0.2 AI Normal 0.0-0.9 Sjogren's Anti SS-A <0.2 AI Normal 0.0-0.9 Sjogren's Anti SS-B <0.2 AI Normal 0.0-0.9 Griselda Comment (SEE NOTE) Normal . 7 Laboratory test finding 05/30/[address] [address] [phone] C Reactive Protein Quantitativ 0.44 mg/dL High 0 .00-0.30 GI Profile PCR So 05/04/2020 [facility] nter [address] [place] [address] [phone] Campylobacter Not Detected 8 C.difficile A/B Not Detected 9 Plesiomonas shigelloides Not Detected 10 Salmonella Not Detected 11 Vibro Not Detected 12 Vibrio cholerae Not Detected 13 Yersinia enterocolitica Not Detected 14 Enteroaggregative Ecoli Not Detected 15 Entropathogenic Ecoli Not Detected 16 Enterotoxigenic Ecoli Not Detected 17 Shiga toxin producing Ecoli Not Detected 18 E coli 0157 Not applicable 19 Shigella Entroinvasive Ecoli Not Detected 20 Cryptosporidium Not Detected 21 Cyclospora cayetanensis Not Detected 22 Entamoeba histolytica Not Detected 23 Giardia lamblia Not Detected 24 Adenovirus F 40/41 Not Detected 25 Astrovirus Not Detected 26 Norovirus GI/Gii Not Detected 27 Rotavirus A Not Detected 28 Saprovirus Performed at: B <SEE NOTE> 29 Laboratory test finding 05/04/2020 [facility] [address] [place], [place] [address] [phone] C Reactive Protein Quantitativ 3.85 mg/dL High 0 .00-0.30 Complete Blood Count 05/04/2020 [facility] Cnc Laser Operator: Dr Marky Syed [place], [place] [id number] [phone] WBC 8.1 x10*3/UL 4.1 - 10.9 RBC [...] 2.0 - 7.8 Laboratory test finding 05/04/2020 [facility] Cnc Laser Operator: [place] [address] [phone] Sed Rate 36 mm/hr High 0 - 15 Comprehensive Chem Profile 05/04/2020 [facility] Cnc Laser Operator: [place] [address] [phone] Glucose 101 mg/dL High 74 - 99 30 BUN 16 mg/dL 7 - 18 Creatinine [...] Low >60 GFR >= 60 mL/min >60 31 Basic Metabolic Panel 12/25/2019 [facility] Cnc Laser Operator: [place] [address] [phone] Glucose 92 mg/dL 74 - 99 32 [...] 60 mL/min >60 34 Lipid Profile 12/25/2019 [facility] Cnc Laser Operator: [place] [address] [phone] Cholesterol 91 mg/dL Low 131 - 200 Triglycerides 102 mg/dL 30 - 150 HDL Cholesterol 31 mg/dL Low 35 - 60 LDL (Calculated) 40 CALC Low 50 - 159 1 Units are mL/min/1.73 m2 Chronic Kidney Disease Staging per NKF: Stage I & II GFR >=60 Normal to Mildly Decreased Stage III GFR 30-59 Moderately Decreased Stage IV GFR 15-29 Severely Decreased Stage V GFR <15 Very Little GFR Left ESRD GFR <15 on WINDER HAND 2 Negative <0.91 Equivocal 0.91 - 1.09 Positive >1.09 3 Negative <0.80 Equivocal 0.80 - 1.19 Positive >1.19 . IgM levels may peak at 3-6 weeks post infection, then gradually decline. 4 Negative <20 Weak positive 20 - 39 Moderate positive 40 - 59 Strong positive >59 5 VITAMIN B12 NORMAL RANGE NORMAL 247 - 911 PG/ML INDETERMINATE 211 - 246 PG/ML DEFICIENT LESS THAN 211 PG/ML 6 Negative <5 Equivocal 5 - 9 Positive >9 7 . Autoantibody Disease Association Condition Frequency -------- [...] (anti-Fan) SLE 15 - 30% ------- --------- MOTH PROOFER Mixed Connective Tissue Disease 95% (U1 nRNP, SLE 30 - 50% anti-ribonucleoprotein) Polymyositis and/or Dermatomyositis 20% -------- --------- Scl-70 (antiDNA Scleroderma (diffuse) 20 - 35% topoisomerase) Crest 13% -------- --------- Lauryn-1 Polymyositis and/or Dermatomyositis 20 - 40% -------- --------- Centromere B Scleroderma - Crest variant 80% Performed at: [address] [id number] Cnc Laser Operator: Gris Oro MD, Phone: [phone] Performed at: [facility] [address] [id number] Cnc Laser Operator: Minh Mora MD, Phone: [phone] 8 9 [phone] 11 12 13 14 15 16 17 18 19 20 21 22 23 24 25 26 27 28 29 Performed at: [address] [id number] Cnc Laser Operator: Minh Mora MD, Phone: [phone] Not Detected 30 100-125 mg/dL PRE-DIABET ES/FASTING >126 mg/dL DIABETES/FASTING 31 CHRONIC KIDNEY DISEASE STAGI NG PER NKF STAGE I & II GFR >= 60 NORMAL TO MILDLY DECREASED STAGE III GFR 30-59 MODERATELY DECREASED STAGE IV GFR 15-29 SEVERELY DECREASED STAGE V GFR <15 VERY LITTLE GFR LEFT ESRD GFR <15 ON WINDER HAND 32 100-125 mg/dL PRE-DIABET ES/FASTING >126 mg/dL DIABETES/FASTING 33 NOTE: RESULT VERIFIED. 34 CHRONIC KIDNEY DISEASE STAGI NG PER NKF STAGE I & II GFR >= 60 NORMAL TO MILDLY DECREASED STAGE III GFR 30-59 MODERATELY DECREASED STAGE IV GFR 15-29 SEVERELY DECREASED STAGE V GFR <15 VERY LITTLE GFR LEFT ESRD GFR <15 ON WINDER HAND Procedures Date Code Description Status 05/30/2020 85956 EKG/Interpretation & Report Comp leted 07/15/2017 [id number] Colonoscopy Completed 04/02/2012 [id number] Colonoscopy Completed 01/16/2010 [id number] Colonoscopy Completed Medical Devices Description No Information Available Encounters Type Date Location Provider Dx Diagnosis Office Visit 05/30/2020 2:00p [facility] Nurse #2 Z13.89 Encounter for screening for other disorder Z86.010 Personal history of colonic polyps Office Visit 05/30/2020 2:30p [facility] Shawn Nix M.D. K52.3 Indeterminate [...] [BMI]30.0-30 .9, adult Office Visit 05/04/2020 1:20p [facility] Wang JR R07.89 Other chest pain R19.7 Diarrhea, unspecified R10.811 Right upper quadrant abdomin al tenderness K21.9 Gastro-esophageal reflux dis ease without esophagitis Office Visit 01/01/2020 9:40a [facility]CM[facility]GI VillarrealP I10 Essential (primary) hypertension E78.00 Pure hypercholesterolemia, [...] I10 Essential (primary) hypertension Mikaela Whitley, [facility] 01/01/2020 E78.00 Pure hypercholesterolemia, unspe cified Mikaela Gutierrez, [facility] 01/01/2020 K21.9 Gastro-esophageal reflux disease without esophagitis Mikaela Gutierrez, [facility] 01/01/2020 M15.9 Polyosteoarthritis, unspecified Mikaela Gutierrez, [facility] 01/01/2020 M10.9 Gout, unspecified Mikaela Gutierrez, [facility] 01/01/2020 R97.20 Elevated prostate specific antig en [PSA] Mikaela Gutierrez, [facility] 01/01/2020 E66.09 Other obesity due to excess grecia rhea Mikaela Gutierrez, [facility] 01/01/2020 Z68.30 Body mass index (BMI) 30.0-30.9, adult Mikaela Gutierrez, [facility] 12/25/2019 I10 Essential (primary) hypertension Mikaela Gutierrez, [facility] 12/25/2019 I10 Essential (primary) hypertension Lab Schedule 12/25/2019 E78.00 Pure hypercholesterolemia, unspe cified Mikaela Gutierrez, THEATER MANAGER 12/25/2019 E78.00 Pure hypercholesterolemia, unspe cified Lab Schedule Plan of Treatment Future Appointment(s):* 07/04/2020 10:45 am - Sandrita Nix M.D. at [facility] 05/30/2020 - Sandrita Nix M.D.* [...] Migraines. Improved. I have approved using Excedrin [id number]. OA/DJD, chronic low back pain. Evaluate inflammatory etoruv31. Health Maintenance. Medicare Wellness paperwork reviewed including check list, CAGE, Cognitive impairment, PHQ9, male preventative wellness. Patient is up to date with vaccine, even the COVID-19. Up to date with colon cancer screening. Diet, exercise encouraged. Functional Status Description No Information Available Mental Status Description No Information Available Referrals Refer to Dr Reason for Referral Status Appt Date Jose Valentin MD CONSULT FOR DIARRHEA Patient Notified [address] [facility] [address] [phone] [facility] Pulmonary Medicine CONSULT FOR SLEEP STUDY FOR [place] [address] [place] [address] [phone]
--- OUTSIDE RECORDS SUMMARY | 2020-06-22 10:14 | CCD | Continuity of Care Document ---
Author Author Valentin Nix M.D. Organization Unknown Address [address] [address] Phone [phone] Care Team Providers Care Underwater Photographer Name Role Phone Keyana Alcaraz AUTM [phone] [facility] AUTM Unavailable Cy Conde MD AUTM [phone] Sandrita Nix MD AUTM [phone] Problems Active Problems Provider Date Essential hypertension [...] Nix M.D. 0 08/30/2015 Calcium Citrate +D [id number] Tablets 1 po qd Sandrita Nix M.D. 06/27/19 16 Vitamin D3 2000Unit Tablets 1 by mouth every day Keyana Alcaraz FNP 04/29/2015 Multi-Vitamin Tablets 2 by mouth every day Sandrita Nix M.D. 05/01/20 10 Losartan Potassium 25mg Tablets 1/2 po qd Nm Keyana Alcaraz FNP Febuxostat 80mg Tablets take 1 tablets by mouth daily Nm Unknown History Medications Asacol HD 800mg Tablets [...] Given 02/24/2019 Influenza,Unspecified U-Flu Given 02/14/2018 Influenza,Unspecified 08177 Given 11/27/2016 Adacel- Tetanus Diphtheria P ertussis (Age64 & Under) [id number] 79353 Given 06/08/2014 Prevnar 13 [id number] Q2037 Given 03/31/2014 Fluvirin Virus Vaccine 33133 21 Q2037 Given 03/27/2012 Fluvirin Virus Vaccine Q2037 Given 03/02/2011 Fluvirin Virus Vaccine Q2037 Given 03/02/2011 Fluvirin Virus Vaccine 66305 Given 11/02/2008 Zoster Vaccine 04552 Given 03/18/2008 Influenza Virus Vaccine 40719 Given 03/21/2005 Influenza Virus Vaccine Vital Signs [...] H/L Range Note Laboratory test finding 05/30/[address] [address] [phone] C Reactive Protein Quantitativ 0.44 mg/dL High 0 .00-0.30 Laboratory test finding 05/30/[address] [address] [phone] Cyclic Citrullinated Peptide Igg <pending> Rheumatoid Factor Quant < 10.0 IU/mL Normal <15.0 Uric Acid 2.6 mg/dL Low 3.5-7.2 Vitamin B12 Level 859 pg/mL Normal 247-911 1 Laboratory test finding 05/30/[address] [address] [phone] Thyroid Stimulating Hormone 4.100 uIU/ML High 0. 358-3.740 Basic Metabolic Profile 05/30/[address] [address] [phone] Glucose, Fasting 84 mg/dL Normal 70-100 Blood Urea Nitrogen 24 mg/dL High 7-18 Creatinine For GFR 1.43 mg/dL High 0.70-1.30 Glomerular Filtration Rate 51.6 Normal >42 2 Sodium Level 141 mEq/L Normal 136-145 Potassium Serum 4.2 mEq/L Normal 3.5-5.1 Chloride Level 105 mEq/L Normal 98-107 Carbon Dioxide Level 32 mEq/L Normal 21-32 Anion Gap 4 mEq/L Low 8-16 Calcium Level 9.2 mg/dL Normal 8.8-10.2 Laboratory test finding 05/30/2020 [facility] Wares Sorter: Dr Marky Syed [place], [place] [id number] [phone] Sed Rate 35 mm/hr High 0 - 15 Ua Dipstick Only 05/30/2020 [facility] S[facility]: Dr Marky Syed [place], [place] [id number] [phone] Urine Color YELLOW Yellow Urine Appearance SL. HAZY Abnormal Clear Urine PH 5.0 units 5.0 - 9.0 Urine Specific [place] 1.025 1.005 - 1.030 Urine Leukocytes NEGATIVE Negative Urine Blood NEGATIVE Negative Urine Protein TRACE Negative -Trace Urine Glucose NEGATIVE mg/dL Negative Urine Nitrite NEGATIVE Negative Urine Ketone NEGATIVE mg/dL Negative Urine Bilirubin NEGATIVE Negative Urine Urobilinogen 0.2 mg/dL 0.2 - 1.0 Comprehensive Chem Profile 05/04/2020 [facility] W[facility] Sorter: [place] [address] [phone] Glucose 101 mg/dL High 74 - 99 3 BUN 16 mg/dL 7 - 18 Creatinine [...] Low >60 GFR >= 60 mL/min >60 4 Laboratory test finding 05/04/2020 [facility] Wares Sorter: Dr Marky [place]ed [place], [place] [id number] [phone] Sed Rate 36 mm/hr High 0 - 15 Complete Blood Count 05/04/2020 [facility] Wares Sorter: [place] [address] [phone] WBC 8.1 x10*3/UL 4.1 - 10.9 RBC [...] 2.0 - 7.8 Laboratory test finding 05/04/2020 [facility] [address] [place] [address] [phone] C Reactive Protein Quantitativ 3.85 mg/dL High 0 .00-0.30 GI Profile PCR So 05/04/2020 [facility] nter [address] [place] [address] [phone] Campylobacter Not Detected 5 C.difficile A/B Not Detected 6 Plesiomonas shigelloides Not Detected 7 Salmonella Not Detected 8 Vibro Not Detected 9 Vibrio cholerae Not Detected 10 Yersinia enterocolitica Not Detected 11 Enteroaggregative Ecoli Not Detected 12 Entropathogenic Ecoli Not Detected 13 Enterotoxigenic Ecoli Not Detected 14 Shiga toxin producing Ecoli Not Detected 15 E coli 0157 Not applicable 16 Shigella Entroinvasive Ecoli Not Detected 17 Cryptosporidium Not Detected 18 Cyclospora cayetanensis Not Detected 19 Entamoeba histolytica Not Detected 20 Giardia lamblia Not Detected 21 Adenovirus F 40/41 Not Detected 22 Astrovirus Not Detected 23 Norovirus GI/Gii Not Detected 24 Rotavirus A Not Detected 25 Saprovirus Performed at: B <SEE NOTE> 26 Basic Metabolic Panel 12/25/2019 [facility] Wares Sorter: Dr Marky Syed [place], [place] [id number] [phone] Glucose 92 mg/dL 74 - 99 27 BUN 13 mg/dL 7 - 18 Creatinine 1.4 mg/dL High 0.6 - 1.3 Sodium 145 mEq/L 136 - 145 Potassium 4.2 mEq/L 3.5 - 5.1 Chloride 107 mEq/L 98 - 107 Carbon Dioxide 28 mEq/L 21 - 32 Calcium 8.2 mg/dL Low 8.5 - 10.1 28 GFR 50 mL/min Low >60 GFR >= 60 mL/min >60 29 Lipid Profile 12/25/2019 [facility] Wares Sorter: Dr Marky Syed [place], [place] [id number] [phone] Cholesterol 91 mg/dL Low 131 - 200 Triglycerides 102 mg/dL 30 - 150 HDL Cholesterol 31 mg/dL Low 35 - 60 LDL (Calculated) 40 CALC Low 50 - 159 1 VITAMIN B12 NORMAL RANGE NORMAL 247 - 911 PG/ML INDETERMINATE 211 - 246 PG/ML DEFICIENT LESS THAN 211 PG/ML 2 Units are mL/min/1.73 m2 Chronic Kidney Disease Staging per NKF: Stage I & II GFR >=60 Normal to Mildly Decreased Stage III GFR 30-59 Moderately Decreased Stage IV GFR 15-29 Severely Decreased Stage V GFR <15 Very Little GFR Left ESRD GFR <15 on FERMENTING CELLAR DROPPER 3 100-125 mg/dL PRE-DIABET ES/FASTING >126 mg/dL DIABETES/FASTING 4 CHRONIC KIDNEY DISEASE STAGI NG PER NKF STAGE I & II GFR >= 60 NORMAL TO MILDLY DECREASED STAGE III GFR 30-59 MODERATELY DECREASED STAGE IV GFR 15-29 SEVERELY DECREASED STAGE V GFR <15 VERY LITTLE GFR LEFT ESRD GFR <15 ON FERMENTING CELLAR DROPPER 5 6 7 8 9 10 11 12 13 14 15 16 17 18 19 20 21 22 23 24 25 26 Performed at: [facility] [address] [id number] 61 Wares Sorter: Minh Mora MD, Phone: [phone] Not Detected 27 100-125 mg/dL PRE-DIABET ES/FASTING >126 mg/dL DIABETES/FASTING 28 NOTE: RESULT VERIFIED. 29 CHRONIC KIDNEY DISEASE STAGI NG PER NKF STAGE I & II GFR >= 60 NORMAL TO MILDLY DECREASED STAGE III GFR 30-59 MODERATELY DECREASED STAGE IV GFR 15-29 SEVERELY DECREASED STAGE V GFR <15 VERY LITTLE GFR LEFT ESRD GFR <15 ON F[employer]MENTING CELLAR DROPPER Procedures Date Code Description Status 07/15/2017 [id number] Colonoscopy Completed 04/02/2012 [id number] Colonoscopy Completed 01/16/2010 [id number] Colonoscopy Completed Medical Devices Description No Information Available Encounters Type Date Location Provider Dx Diagnosis Office Visit 05/04/2020 1:20p [facility] PA R07.89 Other chest pain R19.7 Diarrhea, unspecified R10.811 Right upper quadrant abdomin al tenderness K21.9 Gastro-esophageal reflux dis ease without esophagitis Office Visit 01/01/2020 9:40a [facility] Villarreal I10 Essential (primary) hypertension E78.00 Pure hypercholesterolemia, [...] disease without esophagitis Sandrita Nix M.D. 05/30/2020 Z86.010 Personal history of colonic poly ps Sandrita Nix M.D. 05/30/2020 M10.9 Gout, unspecified Sandrita em M.D. 05/30/2020 I12.9 Hypertensive chronic kidney disease with stage 1 through stage 4 chronic kidney disease, or unspecified chronic kidney disease Sandrita Nix M.D. 05/30/2020 N18.31 Chronic kidney disease, stage 3a Sandrita Nix M.D. 05/30/2020 M06.4 Inflammatory polyarthropathy Shawn Nix M.D. 05/30/2020 E66.09 Other obesity due to excess grecia rhea Sandrita Nix M.D. 05/04/2020 R07.89 Other chest pain Rao sampson JR, PA 05/04/2020 R19.7 Diarrhea, unspecified Rao ramírez JR, PA 05/04/2020 R10.811 Right upper quadrant abdominal t enderness Rao Wise JR, PA 05/04/2020 K21.9 Gastro-esophageal reflux disease without esophagitis Rao Wise JR, PA 01/01/2020 I10 Essential (primary) hypertension Mikaela Gutierrez, [facility] 01/01/2020 E78.00 Pure hypercholesterolemia, unspe cified Mikaela Gutierrez, [facility] 01/01/2020 K21.9 Gastro-esophageal reflux disease without esophagitis Mikaela Gutierrez, [facility] 01/01/2020 M15.9 Polyosteoarthritis, unspecified Mikaela Gutierrez, [facility] 01/01/2020 M10.9 Gout, unspecified Mikaela Gutierrez, [facility] 01/01/2020 R97.20 Elevated prostate specific antig en [PSA] Mikaela Cabrerara, [facility] 01/01/2020 E66.09 Other obesity due to excess grecia rhea Mikaela Gutierrez, [facility] 01/01/2020 Z68.30 Body mass index (BMI) 30.0-30.9, adult Mikaela Gutierrez, [facility] 12/25/2019 I10 Essential (primary) hypertension Mikaela Gutierrez, [facility] 12/25/2019 I10 Essential (primary) hypertension Lab Schedule 12/25/2019 E78.00 Pure hypercholesterolemia, unspe cified Mikaela Gutierrez, [facility] 12/25/2019 E78.00 Pure hypercholesterolemia, unspe cified Lab Schedule Plan of Treatment Future Appointment(s):* 07/04/2020 10:45 am - Sandrita Nix M.D. at [facility]. 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 * R42 Dizziness and giddiness * R44.1 Visual hallucinations * G31.84 Mild cognitive impairment, so stated * G47.33 Obstructive sleep apnea (adult) (pediatric) * K21.9 Gastro-esophageal reflux disease without esophagitis * Z86.010 Personal history of colonic polyps * M10.9 Gout, unspecified * I12.9 Hypertensive chronic kidney disease with stage 1 through stage 4 chronic kidney disease, or unspecified chronic kidney disease * N18.31 Chronic kidney disease, stage 3a * M06.4 Inflammatory polyarthropathy * E66.09 Other obesity due to excess calories * All * New Medication:* Atorvastatin Calcium 20 mg - 1 by mouth every day * Coenzyme Q-10 200 mg - qd * Comments:* 13. Hard of hearing. Continue the hearing aids14. Migraines. Improved. I have approved using Excedrin [id number]. OA/DJD, chronic low back pain. Evaluate inflammatory [...]
--- OUTSIDE RECORDS SUMMARY | 2020-06-22 10:14 | CCD | Continuity of Care Document ---
Author Author Valentin Nix M.D. Organization Unknown Address [address] [address] Phone [phone] Care Team Providers Care Ship Runner Name Role Phone Keyana Alcaraz AUTM [phone] [facility] AUTM Unavailable Cy Conde MD AUTM [phone] Sandrita Nix MD AUTM [phone] Problems Active Problems Provider Date Essential hypertension [...] Nix M.D. 0 08/30/2015 Calcium Citrate +D [id number] Tablets 1 po qd Sandrita Nix M.D. 06/27/19 16 Vitamin D3 2000Unit Tablets 1 by mouth every day Keyana Alcaraz FNP 04/29/2015 Multi-Vitamin Tablets 2 by mouth every day Sandrita Nix M.D. 05/01/20 10 Losartan Potassium 25mg Tablets 1/2 po qd Pr Keyana Alcaraz FNP Febuxostat 80mg Tablets take 1 tablets by mouth daily Pr Unknown History Medications Asacol HD 800mg Tablets [...] Given 02/24/2019 Influenza,Unspecified U-Flu Given 02/14/2018 Influenza,Unspecified 50105 Given 11/27/2016 Adacel- Tetanus Diphtheria P ertussis (Age64 & Under) [id number] 20583 Given 06/08/2014 Prevnar 13 [id number] Q2037 Given 03/31/2014 Fluvirin Virus Vaccine 16406 21 Q2037 Given 03/27/2012 Fluvirin Virus Vaccine Q2037 Given 03/02/2011 Fluvirin Virus Vaccine Q2037 Given 03/02/2011 Fluvirin Virus Vaccine 91819 Given 11/02/2008 Zoster Vaccine 69810 Given 03/18/2008 Influenza Virus Vaccine 91076 Given 03/21/2005 Influenza Virus Vaccine Vital Signs [...] H/L Range Note Laboratory test finding 05/30/[address] [address] [phone] C Reactive Protein Quantitativ 0.44 mg/dL High 0 .00-0.30 Antinuclear Antibodies 05/30/[address] [address] [phone] Antinuclear Antibodies Direct Positive Abnormal Ne gative Anti Double Strand-Dna AB <1 IU/mL Normal 0-9 1 CODE AND TEST CLERK Antibodies 3.5 AI High 0.0-0.9 Fan Antibodies <0.2 AI Normal 0.0-0.9 Sjogren's Anti SS-A <0.2 AI Normal 0.0-0.9 Sjogren's Anti SS-B <0.2 AI Normal 0.0-0.9 Griselda Comment (SEE NOTE) Normal . 2 Laboratory test finding 05/30/[address] [address] [phone] Cyclic Citrullinated Peptide 6 units Normal 0-1 9 3 Rheumatoid Factor Quant < 10.0 IU/mL Normal <15.0 Uric Acid 2.6 mg/dL Low 3.5-7.2 Vitamin B12 Level 859 pg/mL Normal 247-911 4 Lyme Disease SCRN With Confirm 05/30/[address] [address] [phone] Lyme Disease IgG/IgM Antibodie <0.91 ISR Normal 0 .00-0.90 5 Lyme Disease IgM Ab Quantitati <0.80 index Normal 0.00-0.79 6 Laboratory test finding 05/30/2020 [facility] [address] [place], [place] [address] [phone] Thyroid Stimulating Hormone 4.100 uIU/ML High 0. 358-3.740 Basic Metabolic Profile 05/30/2020 [place] [address] [place] [address]373 [phone] Glucose, Fasting 84 mg/dL Normal 70-100 Blood [...] mg/dL Normal 8.8-10.2 Laboratory test finding 05/30/2020 [place] [employer] rae, Critical Care Clinical Nurse Specialist: Dr Marky Syed [place] [id number] [phone] Sed Rate 35 mm/hr High 0 - 15 Ua Dipstick Only 05/30/2020 [place] Angelica , candy Critical Care Clinical Nurse Specialist: [place] [address] [phone] Urine Color YELLOW Yellow Urine Appearance SL. HAZY Abnormal Clear Urine PH 5.0 units 5.0 - 9.0 Urine Specific [place] 1.025 1.005 - 1.030 Urine Leukocytes NEGATIVE Negative Urine Blood NEGATIVE Negative Urine Protein TRACE Negative -Trace Urine Glucose NEGATIVE mg/dL Negative Urine Nitrite NEGATIVE Negative Urine Ketone NEGATIVE mg/dL Negative Urine Bilirubin NEGATIVE Negative Urine Urobilinogen 0.2 mg/dL 0.2 - 1.0 Comprehensive Chem Profile 05/04/2020 [facility], [facility] Critical Care Clinical Nurse Specialist: [place] [address] [phone] Glucose 101 mg/dL High 74 - 99 [...] mL/min >60 9 Laboratory test finding 05/04/2020 [place] [employer] [facility], pc Critical Care Clinical Nurse Specialist: [place] [address] [phone] Sed Rate 36 mm/hr High 0 - 15 Complete Blood Count 05/04/2020 [place] [facility] Management Scientist alice pc Critical Care Clinical Nurse Specialist: [place] [address] [phone] WBC 8.1 x10*3/UL 4.1 - 10.9 RBC [...] 2.0 - 7.8 Laboratory test finding 05/04/2020 [facility] [address] [place] [address] [phone] C Reactive Protein Quantitativ 3.85 mg/dL High 0 .00-0.30 GI Profile PCR So 05/04/2020 [facility] nter [address] [place] [address] [phone] Campylobacter Not Detected 10 C.difficile A/B Not [...] <SEE NOTE> 31 Basic Metabolic Panel 12/25/2019 [facility] Critical Care Clinical Nurse Specialist: [place] [address] [phone] Glucose 92 mg/dL 74 - 99 32 [...] 60 mL/min >60 34 Lipid Profile 12/25/2019 [facility] Critical Care Clinical Nurse Specialist: [place] [address] [phone] Cholesterol 91 mg/dL Low 131 - 200 [...] (anti-Fan) SLE 15 - 30% ------- --------- CODE AND TEST CLERK Mixed Connective Tissue Disease 95% (U1 nRNP, SLE 30 - 50% anti-ribonucleoprotein) Polymyositis and/or Dermatomyositis 20% -------- --------- Scl-70 (antiDNA Scleroderma (diffuse) 20 - 35% topoisomerase) Crest 13% -------- --------- Lauryn-1 Polymyositis and/or Dermatomyositis 20 - 40% -------- --------- Centromere B Scleroderma - Crest variant 80% Performed at: RN - [facility] [address] [id number] Critical Care Clinical Nurse Specialist: Gris Oro MD, Phone: [phone] Performed at: - [facility] [address] [id number] 61 Critical Care Clinical Nurse Specialist: Minh Mora MD, Phone: [phone] 3 Negative <20 Weak positive 20 - [...] Little GFR Left ESRD GFR <15 on SECURITY OFF[employer]ERS AND GUARDS 8 100-125 mg/dL PRE-DIABET ES/FASTING >126 mg/dL DIABETES/FASTING 9 CHRONIC KIDNEY DISEASE STAGI NG PER NKF STAGE I & II GFR >= 60 NORMAL TO MILDLY DECREASED STAGE III GFR 30-59 MODERATELY DECREASED STAGE IV GFR 15-29 SEVERELY DECREASED STAGE V GFR <15 VERY LITTLE GFR LEFT ESRD GFR <15 ON [employer] 10 11 12 13 14 15 16 17 18 19 20 21 22 23 24 25 26 27 28 29 30 31 Performed at: - [facility] [id number] 61 Critical Care Clinical Nurse Specialist: Minh Mora MD, Phone: [phone] Not Detected 32 100-125 mg/dL PRE-DIABET ES/FASTING >126 mg/dL DIABETES/FASTING 33 NOTE: RESULT VERIFIED. 34 CHRONIC KIDNEY DISEASE STAGI NG PER NKF STAGE I & II GFR >= 60 NORMAL TO MILDLY DECREASED STAGE III GFR 30-59 MODERATELY DECREASED STAGE IV GFR 15-29 SEVERELY DECREASED STAGE V GFR <15 VERY LITTLE GFR LEFT ESRD GFR <15 ON SEC[employer]ERS [employer]ARDS Procedures Date Code Description Status 07/15/2017 [id number] Colonoscopy Completed 04/02/2012 [id number] Colonoscopy Completed 01/16/2010 [id number] Colonoscopy Completed Medical Devices Description No Information Available Encounters Type Date Location Provider Dx Diagnosis Office Visit 05/04/2020 1:20p [facility] Yohan Wise JR, PA R07.89 Other chest pain R19.7 Diarrhea, unspecified R10.811 Right upper quadrant abdomin al tenderness K21.9 Gastro-esophageal reflux dis ease without esophagitis Office Visit 01/01/2020 9:40a [facility] Mikaela Fierro arra, HOSPICE HOME CARE COORDINATOR I10 Essential (primary) hypertension E78.00 Pure hypercholesterolemia, [...] 01/01/2020 I10 Essential (primary) hypertension Mikaela Whitley, [facility] 01/01/2020 E78.00 Pure hypercholesterolemia, unspe cified Mikaela Whitley, [facility] 01/01/2020 K21.9 Gastro-esophageal reflux disease without esophagitis Mikaela Whitley, [facility] 01/01/2020 M15.9 Polyosteoarthritis, unspecified Mikaela Cabrerara, [facility] 01/01/2020 M10.9 Gout, unspecified Mikaela Whitley, [facility] 01/01/2020 R97.20 Elevated prostate specific antig en [PSA] Mikaela Whitley, [facility] 01/01/2020 E66.09 Other obesity due to excess grecia rhea Mikaela Whitley, [facility] 01/01/2020 Z68.30 Body mass index (BMI) 30.0-30.9, adult Mikaela Whitley, [facility] 12/25/2019 I10 Essential (primary) hypertension Mikaela Whitley, [facility] 12/25/2019 I10 Essential (primary) hypertension Lab Schedule 12/25/2019 E78.00 Pure hypercholesterolemia, unspe cified Mikaela Whitley, [facility] 12/25/2019 E78.00 Pure hypercholesterolemia, unspe cified Lab Schedule Plan of Treatment Future Appointment(s):* 07/04/2020 10:45 am - Sandrita Nix M.D. at [facility] 05/30/2020 - Sandrita Nix M.D.* K52.3 Indeterminate [...] Migraines. Improved. I have approved using Excedrin [id number]. OA/DJD, chronic low back pain. Evaluate inflammatory [id number]. Health Maintenance. Medicare Wellness paperwork reviewed including [...] MD CONSULT FOR DIARRHEA Patient Notified [address] [facility] [address] [phone] [facility] Pulmonary Medicine CONSULT FOR SLEEP STUDY FOR [place] Sent [address] [place] [address] [phone]
--- OUTSIDE RECORDS SUMMARY | 2020-06-22 10:15 | CCD | Continuity of Care Document ---
Author Author Nurse #Valentin Kaur Organization Unknown Address [address] [address] Phone Unavailable Care Team Providers Care Floor Supervisor Name Role Phone Keyana Alcaraz ANP AUTM [phone] [facility] AUTM Unavailable Cy Conde MD AUTM [phone] Sandrita Nix MD AUTM [phone] Problems Active Problems Provider Date Essential hypertension [...] SIG Qnty Indications Ordering Provide r Date [place]acol HD 800mg Tablets DR 1 by mouth three times a day 270tabs Sandrita Nix M.D. 2019 [facility] B12 2500mcg Chewtabs 1 PO qd Keyana Alcaraz FNP 05/07/2019 Pantoprazole Sodium 40mg Tablets D R take one tablet by mouth qhs 90tabs Keyana Alcaraz FNP 04/20 Aspir-[address] 1 by mouth every day Keyana Alcaraz FNP 04/21/2018 Tylenol Extra Strength 500mg Table ts 2 pills 2-3x/d as needed Sandrita Nix M.D. 0 08/30/2015 Magnesium 400mg Capsules 2 by mouth qd Keyana AlcarazADMINISTRATIVE ASST 06/27/2015 Calcium Citrate +D 090-351nd-Yowy Tablets 1 po qd Sandrita Nix M.D. 06/27/19 16 Atorvastatin Calcium 20mg Tablets 1/2 by mouth every day [facility] Vitamin D3 2000Unit Tablets 1 by mouth every day Keyana Alcaraz FNP 04/29/2015 Multi-Vitamin Tablets 1 po q d [facility] 05/01/2010 Losartan Potassium 25mg Tablets 1/2 po qd Va Keyana AlcarazADMINISTRATIVE ASST Febuxostat 80mg Tablets take 1 and 1/2 tablets by mouth daily Unknown 0 History Medications Asacol HD 800mg Tablets DR 1 by mouth three times a day 180tabs Sandrita Nix M.D. 2019 - 05/02/2020 Medications Administered in Office Medication SIG Qnty Indications Ordering Provider Date Covid-19 vaccine, Unspecified Inj ection Unknown 05/19/2020 Administration Of Flu Vaccine Inj [facility]ction [facility] 03/[facility]2014 Administration Of Flu Vaccine Inj ection Nurse Schedule 03/27/2012 Administration Of Flu Vaccine Inj ection Sandrita Nix M.D. 03/21/20 05 Immunizations CPT Code Status Date Vaccine Lot # U-Flu Given 02/25/2020 Influenza,Unspecified U-Flu Given 02/24/2019 Influenza,Unspecified U-Flu Given 02/14/2018 Influenza,Unspecified 60527 Given 11/27/2016 Adacel- Tetanus Diphtheria P ertussis (Age64 & Under) [id number] [id number] Given 06/08/2014 Prevnar 13 [id number] Q2037 Given 03/31/2014 Fluvirin Virus Vaccine 37075 21 Q2037 Given 03/27/2012 Fluvirin Virus Vaccine Q2037 Given 03/02/2011 Fluvirin Virus Vaccine Q2037 Given 03/02/2011 Fluvirin Virus Vaccine 96615 Given 11/02/2008 Zoster Vaccine 09377 Given 03/18/2008 Influenza Virus Vaccine 39464 Given 03/21/2005 Influenza Virus Vaccine Vital Signs [...] Range Note GI Profile PCR So 05/04/2020 [facility] nter [address] [place] [address] [phone] Campylobacter Not Detected 1 C.difficile A/B Not [...] <SEE NOTE> 22 Laboratory test finding 05/04/2020 [facility] [address] [place] [address] [phone] C Reactive Protein Quantitativ 3.85 mg/dL High 0 .00-0.30 Complete Blood Count 05/04/2020 [facility] Pull Worker: [place] [address] [phone] WBC 8.1 x10*3/UL 4.1 - 10.9 RBC [...] 2.0 - 7.8 Laboratory test finding 05/04/2020 [facility] Pull Worker: [place] [address] [phone] Sed Rate 36 mm/hr High 0 - 15 Comprehensive Chem Profile 05/04/2020 [facility] Pull Worker: [place] [address] [phone] Glucose 101 mg/dL High 74 - 99 [...] mL/min >60 24 Basic Metabolic Panel 12/25/2019 [facility] Pull Worker: [place] [address] [phone] Glucose 92 mg/dL 74 - 99 25 [...] 60 mL/min >60 27 Lipid Profile 12/25/2019 [facility] Pull Worker: [place] [address] [phone] Cholesterol 91 mg/dL Low 131 - 200 Triglycerides 102 mg/dL 30 - 150 HDL Cholesterol 31 mg/dL Low 35 - 60 LDL (Calculated) 40 CALC Low 50 - 159 1 2 3 4 5 6 7 8 9 10 11 12 13 14 15 16 17 18 19 20 21 22 Performed at: [facility] [id number] Pull Worker: Minh Mora MD, Phone: [phone] Not Detected 23 100-125 mg/dL PRE-DIABET ES/FASTING >126 mg/dL DIABETES/FASTING 24 CHRONIC KIDNEY DISEASE STAGI NG PER NKF STAGE I & II GFR >= 60 NORMAL TO MILDLY DECREASED STAGE III GFR 30-59 MODERATELY DECREASED STAGE IV GFR 15-29 SEVERELY DECREASED STAGE V GFR <15 VERY LITTLE GFR LEFT ESRD GFR <15 ON FLY WORKER 25 100-125 mg/dL PRE-DIABET ES/FASTING >126 mg/dL DIABETES/FASTING 26 NOTE: RESULT VERIFIED. 27 CHRONIC KIDNEY DISEASE STAGI NG PER NKF STAGE I & II GFR >= 60 NORMAL TO MILDLY DECREASED STAGE III GFR 30-59 MODERATELY DECREASED STAGE IV GFR 15-29 SEVERELY DECREASED STAGE V GFR <15 VERY LITTLE GFR LEFT ESRD GFR <15 ON FLY WORKER Procedures Date Code Description Status 07/15/2017 [id number] Colonoscopy Completed 04/02/2012 [id number] Colonoscopy Completed 01/16/2010 [id number] Colonoscopy Completed Medical Devices Description No Information Available Encounters Type Date Location Provider Dx Diagnosis Office Visit 05/04/2020 1:20p [facility] Yohan Wise JR, PA R07.89 Other chest pain R19.7 Diarrhea, unspecified R10.811 Right upper quadrant abdomin al tenderness K21.9 Gastro-esophageal reflux dis ease without esophagitis Office Visit 01/01/2020 9:40a [facility] Mikaela banerjee, [facility] I10 Essential (primary) hypertension E78.00 Pure hypercholesterolemia, [...] upper quadrant abdominal t enderness Rao Wise JR PA 05/04/2020 K21.9 Gastro-esophageal reflux disease without esophagitis Rao Wise JR, PA 01/01/2020 I10 Essential (primary) hypertension Mikaela Whitley, [facility] 01/01/2020 E78.00 Pure hypercholesterolemia, unspe cified Mikaela Gutierrez, [facility] 01/01/2020 K21.9 Gastro-esophageal reflux disease without esophagitis Mikaela Whitley, [facility] 01/01/2020 M15.9 Polyosteoarthritis, unspecified Mikaela Gutierrez, [facility] 01/01/2020 M10.9 Gout, unspecified Mikaela Gutierrez, [facility] 01/01/2020 R97.20 Elevated prostate specific antig en [PSA] Mikaela Cabrerara, [facility] 01/01/2020 E66.09 Other obesity due to excess grecia rhea Mikaela Cabrerara, [facility] 01/01/2020 Z68.30 Body mass index (BMI) 30.0-30.9, adult Mikaela Whitley, [facility] 12/25/2019 I10 Essential (primary) hypertension Mikaela Gutierrez, [facility] 12/25/2019 I10 Essential (primary) hypertension Lab Schedule 12/25/2019 E78.00 Pure hypercholesterolemia, unspe cified Mikaela Gutierrez, [facility] 12/25/2019 E78.00 Pure hypercholesterolemia, unspe cified Lab Schedule Plan of Treatment Future Appointment(s):* 07/12/2020 1:40 pm - Nurse #2 at [facility] * 07/12/2020 2:00 pm - AUSTIN Cameron at [facility] Functional Status Description No Information Available Mental Status Description No Information Available Referrals Description No Information Available
--- OUTSIDE RECORDS SUMMARY | 2020-06-22 10:15 | CCD | Continuity of Care Document ---
Author Author Valentin WISE [place] Organization Unknown Address [address] [place] [address] [address] [place] [address] Phone [phone] Care Team Providers Care Card Placer Name Role Phone Keyana Alcaraz AUTM [phone] [facility] AUTM Unavailable Cy Conde MD AUTM [phone] Problems Active Problems Provider Date Essential hypertension [...] a day 180tabs Sandrita Nix M.D. 2019 [facility] B12 2500mcg [...] 400mg Capsules 2 by mouth qd Keyana Alcaraz FNP 06/27/2015 Calcium Citrate +D 249-164my-Rqum Tablets 1 po qd Sandrita Nix M.D. 06/27/19 16 Atorvastatin Calcium 20mg Tablets 1/2 by mouth every day Keyana Alcaraz FNP 04/29/2015 Vitamin D3 2000Unit Tablets 1 by mouth every day Keyana Alcaraz FNP 04/29/2015 Multi-Vitamin Tablets 1 po q d Keyana Alcaraz FNP 05/01/2010 Losartan Potassium 25mg Tablets 1/2 po qd Va Keyana Alcaraz FNP History Medications Asacol HD 800mg Tablets DR 1 by mouth three times a day 180tabs Sandrita Nix M.D. 2019 - 05/02/2020 Medications Administered in Office Medication SIG Qnty Indications Ordering Provider Date Administration Of Flu Vaccine Inj ection Keyana Alcaraz FNP 03/31/2014 Administration Of Flu Vaccine Inj ection Nurse Schedule 03/27/2012 Administration Of Flu Vaccine Inj ection Sandrita Nix M.D. 03/21/20 05 Immunizations CPT Code Status Date Vaccine Lot # U-Flu Given 02/25/2020 Influenza,Unspecified U-Flu Given 02/24/2019 Influenza,Unspecified U-Flu Given 02/14/2018 Influenza,Unspecified 10904 Given 11/27/2016 Adacel- Tetanus Diphtheria P ertussis (Age64 & Under) [id number] 78599 Given 06/08/2014 Prevnar 13 [id number] Q2037 Given 03/31/2014 Fluvirin Virus Vaccine 17126 21 Q2037 Given 03/27/2012 Fluvirin Virus Vaccine Q2037 Given 03/02/2011 Fluvirin Virus Vaccine Q2037 Given 03/02/2011 Fluvirin Virus Vaccine 38213 Given 11/02/2008 Zoster Vaccine 33830 Given 03/18/2008 Influenza Virus Vaccine 18365 Given 03/21/2005 Influenza Virus Vaccine Vital Signs Date Vital Result Comment 05/04/2020 1:07pm BP Systolic 110 mmHg BP Diastolic 78 mmHg Heart Rate 76 /min Height 65.25 inches 5'5.25" Weight 186.00 lb BMI (Body Mass Index) 30.7 kg/m2 01/01/2020 9:28am BP Systolic 102 mmHg BP Diastolic 60 mmHg Heart Rate 72 /min Height 65.25 inches 5'5.25" Weight 182.00 lb O2 % BldC Oximetry 98 % RM Air BMI (Body Mass Index) 30.1 kg/m2 Results Test Acquired Date Facility Test Result H/L Range Note GI Profile PCR So 05/04/2020 [facility] nter [address] [place] [address] [phone] Campylobacter Not Detected 1 C.difficile A/B Not [...] <SEE NOTE> 22 Laboratory test finding 05/04/2020 [facility] [address] [place] [address] [phone] C Reactive Protein Quantitativ 3.85 mg/dL High 0 .00-0.30 Complete Blood Count 05/04/2020 [facility] Window And Door Installer: [place] [address] [phone] WBC 8.1 x10*3/UL 4.1 - 10.9 RBC [...] 2.0 - 7.8 Laboratory test finding 05/04/2020 [facility] Window And Door Installer: Dr Marky Syed [place] [id number] [phone] Sed Rate 36 mm/hr High 0 - 15 Comprehensive Chem Profile 05/04/2020 [facility] Window And Door Installer: [place] [address] [phone] Glucose 101 mg/dL High 74 - 99 [...] mL/min >60 24 Basic Metabolic Panel 12/25/2019 [facility] Window And Door Installer: [place] [address] [phone] Glucose 92 mg/dL 74 - 99 25 [...] 60 mL/min >60 27 Lipid Profile 12/25/2019 [facility] Window And Door Installer: [place] [address] [phone] Cholesterol 91 mg/dL Low 131 - 200 Triglycerides 102 mg/dL 30 - 150 HDL Cholesterol 31 mg/dL Low 35 - 60 LDL (Calculated) 40 CALC Low 50 - 159 1 2 3 4 5 6 7 8 9 10 11 12 13 14 15 16 17 18 19 20 21 22 Performed at: [facility] [id number] 61 Window And Door Installer: Minh Mora MD, Phone: [phone] Not Detected 23 100-125 mg/dL PRE-DIABET ES/FASTING >126 mg/dL DIABETES/FASTING 24 CHRONIC KIDNEY DISEASE STAGI NG PER NKF STAGE I & II GFR >= 60 NORMAL TO MILDLY DECREASED STAGE III GFR 30-59 MODERATELY DECREASED STAGE IV GFR 15-29 SEVERELY DECREASED STAGE V GFR <15 VERY LITTLE GFR LEFT ESRD GFR <15 ON NETWORK TECHNOLOGY INSTRUCTOR 25 100-125 mg/dL PRE-DIABET ES/FASTING >126 mg/dL DIABETES/FASTING 26 NOTE: RESULT VERIFIED. 27 CHRONIC KIDNEY DISEASE STAGI NG PER NKF STAGE I & II GFR >= 60 NORMAL TO MILDLY DECREASED STAGE III GFR 30-59 MODERATELY DECREASED STAGE IV GFR 15-29 SEVERELY DECREASED STAGE V GFR <15 VERY LITTLE GFR LEFT ESRD GFR <15 ON NETWORK TECHNOLOGY INSTRUCTOR Procedures Date Code Description Status 07/15/2017 [id number] Colonoscopy Completed 04/02/2012 [id number] Colonoscopy Completed 01/16/2010 [id number] Colonoscopy Completed Medical Devices Description No Information Available Encounters Type Date Location Provider Dx Diagnosis Office Visit 05/04/2020 1:20p [facility] Yohan Wise JR, PA R07.89 Other chest pain R19.7 Diarrhea, unspecified R10.811 Right upper quadrant abdomin al tenderness K21.9 Gastro-esophageal reflux dis ease without esophagitis Office Visit 01/01/2020 9:40a [facility] Mikaela banerjee, [employer] I10 Essential (primary) hypertension E78.00 Pure hypercholesterolemia, [...] PA 05/04/2020 R19.7 Diarrhea, unspecified Rao ramírez JR PA 05/04/2020 R10.811 Right upper quadrant abdominal t enderness TETE Benavidez JR 05/04/2020 K21.9 Gastro-esophageal reflux disease without esophagitis Rao Wise JR, PA 01/01/2020 I10 Essential (primary) hypertension Mikaela Whitley, [facility] 01/01/2020 E78.00 Pure hypercholesterolemia, unspe cified Mikaela Gutierrez, [facility] 01/01/2020 K21.9 Gastro-esophageal reflux disease without esophagitis Mikaela Gutierrez, [facility] 01/01/2020 M15.9 Polyosteoarthritis, unspecified Mikaela Gutierrez, [facility] 01/01/2020 M10.9 Gout, unspecified Mikaela Gutierrez, [facility] 01/01/2020 R97.20 Elevated prostate specific antig en [PSA] Mikaela Gutierrez, [facility] 01/01/2020 E66.09 Other obesity due to excess grecia rhea Mikaela Gutierrez, [facility] 01/01/2020 Z68.30 Body mass index (BMI) 30.0-30.9, adult Mikaela Gutierrez, [facility] 12/25/2019 I10 Essential (primary) hypertension Mikaela Gutierrez, [facility] 12/25/2019 I10 Essential (primary) hypertension Lab Schedule 12/25/2019 E78.00 Pure hypercholesterolemia, unspe cified Mikaela Gutierrez, [facility] 12/25/2019 E78.00 Pure hypercholesterolemia, unspe cified Lab Schedule Plan of Treatment Future Appointment(s):* 05/30/2020 1:30 pm - Sandrita Nix M.D. at [facility] * 07/12/2020 1:40 pm - Nurse #2 at [facility] * 07/12/2020 2:00 pm - AUSTIN Cameron at [facility] 05/04/2020 - TETE Benavidez JR* R07.89 Other chest pain* Comments:* CXR due to left side pain, consider stress test and holter in May. Possible refe rred RUQ pain as well * R19.7 Diarrhea, unspecified* Comments:* Labs pending, also RUQ US and CXR, family history of colon cancer and heart disease, consider heart work up in May. Restart Asacol based upon labs * R10.811 Right upper quadrant abdominal tenderness* Comments:* US pending, increased fiber and fluids discussed, diet reinforced, Asacol if appropriate * K21.9 Gastro-esophageal reflux disease without esophagitis* Comments:* Continue pantoprazole, seems to not have GERD at this time per pt * All * Comments:* COVID precautions discussed; frequent hand washing, social distancing and mask wearing Functional Status Description No Information Available Mental Status Description No Information Available Referrals Description No Information Available
--- OUTSIDE RECORDS SUMMARY | 2020-06-22 10:15 | CCD | Continuity of Care Document ---
Author Author Valentin WISE NE Organization Unknown Address [address] [place] [address] [address] [place] [address] Phone [phone] Care Team Providers Care Bulk Plant Supervisor Name Role Phone Keyana Alcaraz AUTM [phone] [facility] AUTM Unavailable Cy Conde MD AUTM [phone] Problems Active Problems Provider Date Essential hypertension [...] Keyana Alcaraz FNP 06/27/2015 Calcium Citrate +D 172-640ay-Apgj Tablets 1 po qd Sandrita Nix M.D. 06/27/19 16 Atorvastatin Calcium 20mg Tablets 1/2 by mouth every day Keyana Alcaraz FNP 04/29/2015 Vitamin D3 2000Unit Tablets 1 by mouth every day eKyana Alcaraz FNP 04/29/2015 Multi-Vitamin Tablets 1 po [...] Given 02/24/2019 Influenza,Unspecified U-Flu Given 02/14/2018 Influenza,Unspecified 27157 Given 11/27/2016 Adacel- Tetanus Diphtheria P ertussis (Age64 & Under) [id number] 56651 Given 06/08/2014 Prevnar 13 [id number] Q2037 Given 03/31/2014 Fluvirin Virus Vaccine 43641 21 Q2037 Given 03/27/2012 Fluvirin Virus Vaccine Q2037 Given 03/02/2011 Fluvirin Virus Vaccine Q2037 Given 03/02/2011 Fluvirin Virus Vaccine 56309 Given 11/02/2008 Zoster Vaccine 30633 Given 03/18/2008 Influenza Virus Vaccine 22726 Given 03/21/2005 Influenza Virus Vaccine Vital Signs [...] Result H/L Range Note Laboratory test finding 05/04/2020 [facility] [address] [place], [place] [address] [phone] C Reactive Protein Quantitativ 3.85 mg/dL High 0 .00-0.30 Complete Blood Count 05/04/2020 [facility] Roller Shop Supervisor: [place] [address] [phone] WBC 8.1 x10*3/UL 4.1 - 10.9 RBC [...] 2.0 - 7.8 Laboratory test finding 05/04/2020 [facility] Roller Shop Supervisor: [place] [address] [phone] Sed Rate 36 mm/hr High 0 - 15 Comprehensive Chem Profile 05/04/2020 [facility] Roller Shop Supervisor: [place] [address] [phone] Glucose 101 mg/dL High 74 - 99 1 BUN 16 mg/dL 7 - 18 Creatinine [...] Low >60 GFR >= 60 mL/min >60 2 Basic Metabolic Panel 12/25/2019 [facility] Roller Shop Supervisor: [place] [address] [phone] Glucose 92 mg/dL 74 - 99 3 BUN 13 mg/dL 7 - 18 Creatinine 1.4 mg/dL High 0.6 - 1.3 Sodium 145 mEq/L 136 - 145 Potassium 4.2 mEq/L 3.5 - 5.1 Chloride 107 mEq/L 98 - 107 Carbon Dioxide 28 mEq/L 21 - 32 Calcium 8.2 mg/dL Low 8.5 - 10.1 4 GFR 50 mL/min Low >60 GFR >= 60 mL/min >60 5 Lipid Profile 12/25/2019 [facility] Roller Shop Supervisor: [place] [address] [phone] Cholesterol 91 mg/dL Low 131 - 200 [...] LITTLE GFR LEFT ESRD GFR <15 ON SOLUTION ADVISOR 3 100-125 mg/dL PRE-DIABET ES/FASTING >126 mg/dL DIABETES/FASTING 4 NOTE: RESULT VERIFIED. 5 CHRONIC KIDNEY DISEASE STAGI NG PER NKF STAGE I & II GFR >= 60 NORMAL TO MILDLY DECREASED STAGE III GFR 30-59 MODERATELY DECREASED STAGE IV GFR 15-29 SEVERELY DECREASED STAGE V GFR <15 VERY LITTLE GFR LEFT ESRD GFR <15 ON SOLUTION ADVISOR Procedures Date Code Description Status 07/15/2017 [id number] Colonoscopy Completed 04/02/2012 [id number] Colonoscopy Completed 01/16/2010 [id number] Colonoscopy Completed Medical Devices Description No Information Available Encounters Type Date Location Provider Dx Diagnosis Office Visit 01/01/2020 9:40a [facility] Mikaela banerjee, [facility] I10 Essential (primary) hypertension E78.00 Pure hypercholesterolemia, u nspecified K21.9 Gastro-esophageal reflux dis ease without esophagitis M15.9 Polyosteoarthritis, unspecif ied M10.9 Gout, unspecified R97.20 Elevated prostate specific a ntigen [PSA] E66.09 Other obesity due to excess calories Z68.30 Body mass index (BMI) 30.0-3 0.9, adult Assessments Date Code Description Provider 05/04/2020 R19.7 Diarrhea, unspecified Rao ramírez JR PA 05/04/2020 R10.811 Right upper quadrant abdominal t enderness Rao Wise JR PA 05/04/2020 K21.9 Gastro-esophageal reflux disease without esophagitis Rao Wise JR PA 05/04/2020 R07.89 Other chest pain Rao sampson JR PA 01/01/2020 I10 Essential (primary) hypertension Mikaela Gutierrez, [facility] 01/01/2020 E78.00 Pure hypercholesterolemia, unspe cified Mikaela Gutierrez, [employer] 01/01/2020 K21.9 Gastro-esophageal reflux disease without esophagitis Mikaela Gutierrez, [employer] TE[employer] 01/01/2020 M15.9 Polyosteoarthritis, unspecified Mikaela Gutierrez, [employer] TECHNIC[employer] 01/01/2020 M10.9 Gout, unspecified Mikaela Gutierrez, [employer] TECHNICIAN 01/01/2020 R97.20 Elevated prostate specific antig en [PSA] Mikaela Gutierrez, [facility] 01/01/2020 E66.09 Other obesity due to excess grecia rhea Mikaela Gutierrez, [facility] 01/01/2020 Z68.30 Body mass index (BMI) 30.0-30.9, adult Mikaela Whitley, [facility] 12/25/2019 I10 Essential (primary) hypertension Mikaela Whitley, [facility] 12/25/2019 I10 Essential (primary) hypertension Lab Schedule 12/25/2019 E78.00 Pure hypercholesterolemia, unspe cified Mikaela Whitley, [facility] 12/25/2019 E78.00 Pure hypercholesterolemia, unspe cified Lab Schedule Plan of Treatment Future Appointment(s):* 05/30/2020 1:30 pm - Sandrita Nix M.D. at [facility] * 07/12/2020 1:40 pm [facility] * 07/12/2020 2:00 pm - AUSTIN Cameron at [facility] 05/04/2020 - TETE Benavidez JR* R19.7 Diarrhea, unspecified* Comments:* Labs pending, also [...] GERD at this time per pt * R07.89 Other chest pain* Comments:* CXR due to left side pain, consider stress test and holter in May. Possible referred RUQ pain as well * All * Comments:* COVID precautions discussed; frequent hand washing, social distancing and mask wearing Functional Status Description No Information Available Mental Status Description No Information Available Referrals Description No Information Available
--- OUTSIDE RECORDS SUMMARY | 2020-06-22 10:15 | CCD | Continuity of Care Document ---
Author Author Valentin WISE [place] Organization Unknown Address [address] [place] [address] [address] [place] [address] Phone [phone] Care Team Providers Care Billing Specialist Name Role Phone Keyana Alcaraz AUTM [phone] [facility] AUTM Unavailable Cy Conde MD AUTM [phone] Problems Active Problems Provider Date Essential hypertension [...] Keyana Alcaraz FNP 06/27/2015 Calcium Citrate +D [id number] Tablets 1 po qd Sandrita Nix M.D. [...] Given 02/24/2019 Influenza,Unspecified U-Flu Given 02/14/2018 Influenza,Unspecified 80892 Given 11/27/2016 Adacel- Tetanus Diphtheria P ertussis (Age64 & Under) [id number] 05145 Given 06/08/2014 Prevnar 13 [id number] Q2037 Given 03/31/2014 Fluvirin Virus Vaccine 40266 21 Q2037 Given 03/27/2012 Fluvirin Virus Vaccine Q2037 Given 03/02/2011 Fluvirin Virus Vaccine Q2037 Given 03/02/2011 Fluvirin Virus Vaccine 18923 Given 11/02/2008 Zoster Vaccine 50690 Given 03/18/2008 Influenza Virus Vaccine 50387 Given 03/21/2005 Influenza Virus Vaccine Vital Signs [...] H/L Range Note Laboratory test finding 05/04/2020 [facility] [address] [place], [place] [id number] [phone] C Reactive Protein Quantitativ 3.85 mg/dL High 0 .00-0.30 Complete Blood Count 05/04/2020 [facility] Team Assembly Line Machine Operator: [place] [address] [phone] WBC 8.1 x10*3/UL 4.1 - 10.9 RBC [...] 2.0 - 7.8 Laboratory test finding 05/04/2020 [facility] Team Assembly Line Machine Operator: [place] [address] [phone] Sed Rate 36 mm/hr High 0 - 15 Comprehensive Chem Profile 05/04/2020 [facility] Team Assembly Line Machine Operator: [place] [address] [phone] Glucose 101 mg/dL High 74 - 99 [...] mL/min >60 2 Basic Metabolic Panel 12/25/2019 [facility] Team Assembly Line Machine Operator: [place] [address] [phone] Glucose 92 mg/dL 74 - 99 3 [...] 60 mL/min >60 5 Lipid Profile 12/25/2019 [facility] Team Assembly Line Machine Operator: [place] [address] [phone] Cholesterol 91 mg/dL Low 131 - 200 [...] LITTLE GFR LEFT ESRD GFR <15 ON CHEMISTRY INSTRUCTOR 3 100-125 mg/dL PRE-DIABET ES/FASTING >126 mg/dL DIABETES/FASTING 4 NOTE: RESULT VERIFIED. 5 CHRONIC KIDNEY DISEASE STAGI NG PER NKF STAGE I & II GFR >= 60 NORMAL TO MILDLY DECREASED STAGE III GFR 30-59 MODERATELY DECREASED STAGE IV GFR 15-29 SEVERELY DECREASED STAGE V GFR <15 VERY LITTLE GFR LEFT ESRD GFR <15 ON CHEMISTRY INSTRUCTOR Procedures Date Code Description Status 07/15/2017 [id number] Colonoscopy Completed 04/02/2012 [id number] Colonoscopy Completed 01/16/2010 [id number] Colonoscopy Completed Medical Devices Description No Information Available Encounters Type Date Location Provider Dx Diagnosis Office Visit 01/01/2020 9:40a [facility] Mikaela banerjee, [facility] I10 Essential (primary) hypertension E78.00 [...] 01/01/2020 I10 Essential (primary) hypertension Mikaela Gutierrez, [facility] 01/01/2020 E78.00 Pure hypercholesterolemia, unspe cified Mikaela Gutierrez, [facility] [employer] [facility] 01/01/2020 K21.9 Gastro-esophageal reflux disease without esophagitis Mikaela Gutierrez, [employer] 01/01/2020 M15.9 Polyosteoarthritis, unspecified Mikaela Gutierrez, [employer] 01/01/2020 M10.9 Gout, unspecified Mikaela Gutierrez, [employer] 01/01/2020 R97.20 Elevated prostate specific antig en [PSA] Mikaela Gutierrez, [facility] 01/01/2020 E66.09 Other obesity due to excess grecia rhea Mikaela Gutierrez, [facility] 01/01/2020 Z68.30 Body mass index (BMI) 30.0-30.9, adult Mikaela Whitley, [facility] 12/25/2019 I10 Essential (primary) hypertension Mikaela Whitley, [facility] 12/25/2019 I10 Essential (primary) hypertension Lab Schedule 12/25/2019 E78.00 Pure hypercholesterolemia, unspe cified Mikaela Whitley, [facility] 12/25/2019 E78.00 Pure hypercholesterolemia, unspe cified Lab Schedule Plan of Treatment Future Appointment(s):* 05/30/2020 1:30 pm - Sandrita Nix M.D. at [facility] * 07/12/2020 1:40 pm - [facility] * 07/12/2020 2:00 pm - AUSTIN Cameron at [facility] 05/04/2020 - TETE Benavidez JR* [...]
--- OUTSIDE RECORDS SUMMARY | 2020-06-22 10:15 | CCD | Continuity of Care Document ---
Author Author Valentin WISE [place] Organization Unknown Address [address] [place] [address] [address] [place] [address] Phone [phone] Care Team Providers Care Dry Chain Operator Name Role Phone Keyana Alcaraz AUTM [phone] [facility] AUTM Unavailable Cy Conde MD AUTM [phone] Problems Active Problems Provider Date Essential hypertension [...] Keyana Alcaraz FNP 06/27/2015 Calcium Citrate +D [id number]-Zlyo Tablets 1 po qd Sandrita Nix M.D. [...] Given 02/24/2019 Influenza,Unspecified U-Flu Given 02/14/2018 Influenza,Unspecified 41155 Given 11/27/2016 Adacel- Tetanus Diphtheria P ertussis (Age64 & Under) [id number] 38201 Given 06/08/2014 Prevnar 13 [id number] Q2037 Given 03/31/2014 Fluvirin Virus Vaccine 05916 21 Q2037 Given 03/27/2012 Fluvirin Virus Vaccine Q2037 Given 03/02/2011 Fluvirin Virus Vaccine Q2037 Given 03/02/2011 Fluvirin Virus Vaccine 50814 Given 11/02/2008 Zoster Vaccine 38032 Given 03/18/2008 Influenza Virus Vaccine 61862 Given 03/21/2005 Influenza Virus Vaccine Vital Signs [...] H/L Range Note Laboratory test finding 05/04/2020 [facility] [address] [place], [place] [id number] [phone] C Reactive Protein Quantitativ 3.85 mg/dL High 0 .00-0.30 Complete Blood Count 05/04/2020 [facility] Project Geophysicist: [place] [address] [phone] WBC 8.1 x10*3/UL 4.1 - 10.9 RBC [...] 2.0 - 7.8 Laboratory test finding 05/04/2020 [facility] Project Geophysicist: [place] [address] [phone] Sed Rate 36 mm/hr High 0 - 15 Comprehensive Chem Profile 05/04/2020 [facility] Project Geophysicist: [place] [address] [phone] Glucose 101 mg/dL High 74 - 99 [...] mL/min >60 2 Basic Metabolic Panel 12/25/2019 [facility] Project Geophysicist: [place] [address] [phone] Glucose 92 mg/dL 74 - 99 3 [...] 60 mL/min >60 5 Lipid Profile 12/25/2019 [facility] Project Geophysicist: [place] [address] [phone] Cholesterol 91 mg/dL Low 131 - 200 [...] LITTLE GFR LEFT ESRD GFR <15 ON ENGINE REPAIR SUPERVISOR 3 100-125 mg/dL PRE-DIABET ES/FASTING >126 mg/dL DIABETES/FASTING 4 NOTE: RESULT VERIFIED. 5 CHRONIC KIDNEY DISEASE STAGI NG PER NKF STAGE I & II GFR >= 60 NORMAL TO MILDLY DECREASED STAGE III GFR 30-59 MODERATELY DECREASED STAGE IV GFR 15-29 SEVERELY DECREASED STAGE V GFR <15 VERY LITTLE GFR LEFT ESRD GFR <15 ON ENGINE REPAIR SUPERVISOR Procedures Date Code Description Status 07/15/2017 [id number] Colonoscopy Completed 04/02/2012 [id number] Colonoscopy Completed 01/16/2010 [id number] Colonoscopy Completed Medical Devices Description No Information Available Encounters Type Date Location Provider Dx Diagnosis Office Visit 05/04/2020 1:20p [facility] [place] R07.89 Other chest pain R19.7 Diarrhea, unspecified R10.811 Right upper quadrant abdomin al tenderness K21.9 Gastro-esophageal reflux dis ease without esophagitis Office Visit 01/01/2020 9:40a [facility], [facility] I10 Essential (primary) hypertension E78.00 Pure hypercholesterolemia, u nspecified K21.9 Gastro-esophageal reflux dis ease without esophagitis M15.9 Polyosteoarthritis, unspecif ied M10.9 Gout, unspecified R97.20 Elevated prostate specific a ntigen [PSA] E66.09 Other obesity due to excess calories Z68.30 Body mass index (BMI) 30.0-3 0.9, adult Assessments Date Code Description Provider 05/04/2020 R07.89 Other chest pain TETE Herrera JR 05/04/2020 R19.7 Diarrhea, unspecified TETE Fish JR 05/04/2020 R10.811 Right upper quadrant abdominal t enderness TETE Benavidez JR 05/04/2020 K21.9 Gastro-esophageal reflux disease without esophagitis TETE Benavidez JR 01/01/2020 I10 Essential (primary) hypertension Mikaela Whitley, [employer] 01/01/2020 E78.00 Pure hypercholesterolemia, unspe cified Mikaela Whitley, [employer] INS[employer] 01/01/2020 K21.9 Gastro-esophageal reflux disease without esophagitis MARGI CameronP 01/01/2020 M15.9 Polyosteoarthritis, unspecified Mikaela Whitley [facility] 01/01/2020 M10.9 Gout, unspecified Mikaela Whitley, [facility] 01/01/2020 R97.20 Elevated prostate specific antig en [PSA] Mikaela Whitley, [facility] 01/01/2020 E66.09 Other obesity due to excess grecia rhea Mikaela Whitley, [facility] 01/01/2020 Z68.30 Body mass index (BMI) 30.0-30.9, adult Mkiaela Whitley, [facility] 12/25/2019 I10 Essential (primary) hypertension Mikaela Whitley, [facility] 12/25/2019 I10 Essential (primary) hypertension Lab Schedule 12/25/2019 E78.00 Pure hypercholesterolemia, unspe cified Mikaela Whitley, [facility] 12/25/2019 E78.00 Pure hypercholesterolemia, unspe cified Lab Schedule Plan of Treatment Future Appointment(s):* 05/30/2020 1:30 pm - Sandrtia Nix M.D. at [facility] * 07/12/2020 1:40 pm - Nurse #2 at [facility] * 07/12/2020 2:00 pm - AUSTIN Cameron at [facility] 05/04/2020 - TETE Benavidez JR* [...]
--- OUTSIDE RECORDS SUMMARY | 2020-06-22 10:15 | CCD | Continuity of Care Document ---
Author Author Valentin NAVARRO [place] Organization Unknown Address [address] [place] [address] [address] [place] [address] Phone [phone] Care Team Providers Care Childrens Club Attendant Name Role Phone Keyana Alcaraz AUTM [phone] [facility] AUTM Unavailable Cy Conde MD AUTM [phone] Problems Active Problems Provider Date Essential hypertension [...] Keyana Alcaraz FNP 06/27/2015 Calcium Citrate +D 886-368mm-Mtyl Tablets 1 po qd Sandrita Nix M.D. [...] Given 02/24/2019 Influenza,Unspecified U-Flu Given 02/14/2018 Influenza,Unspecified 81469 Given 11/27/2016 Adacel- Tetanus Diphtheria P ertussis (Age64 & Under) [id number] 34988 Given 06/08/2014 Prevnar 13 W74106 Q2037 Given 03/31/2014 Fluvirin Virus Vaccine 59742 21 Q2037 Given 03/27/2012 Fluvirin Virus Vaccine Q2037 Given 03/02/2011 Fluvirin Virus Vaccine Q2037 Given 03/02/2011 Fluvirin Virus Vaccine 44564 Given 11/02/2008 Zoster Vaccine 57141 Given 03/18/2008 Influenza Virus Vaccine 69732 Given 03/21/2005 Influenza Virus Vaccine Vital Signs [...] H/L Range Note Laboratory test finding 05/04/2020 [facility] [address] [place] [address] [phone] High Sensitivity C-Reactive Protein <pending> Laboratory test finding 05/04/2020 [facility] Water Meter Mechanic: [place] [address] [phone] Sed Rate <pending> Basic Metabolic Panel 12/25/2019 [facility] Water Meter Mechanic: Dr Marky Syed [place], [place] [id number] [phone] Glucose 92 mg/dL 74 - 99 1 BUN 13 mg/dL 7 - 18 Creatinine 1.4 mg/dL High 0.6 - 1.3 Sodium 145 mEq/L 136 - 145 Potassium 4.2 mEq/L 3.5 - 5.1 Chloride 107 mEq/L 98 - 107 Carbon Dioxide 28 mEq/L 21 - 32 Calcium 8.2 mg/dL Low 8.5 - 10.1 2 GFR 50 mL/min Low >60 GFR >= 60 mL/min >60 3 Lipid Profile 12/25/2019 [facility] Water Meter Mechanic: [place] [address] [phone] Cholesterol 91 mg/dL Low 131 - 200 Triglycerides 102 mg/dL 30 - 150 HDL Cholesterol 31 mg/dL Low 35 - 60 LDL (Calculated) 40 CALC Low 50 - 159 1 100-125 mg/dL PRE-DIABET ES/FASTING >126 mg/dL DIABETES/FASTING 2 NOTE: RESULT VERIFIED. 3 CHRONIC KIDNEY DISEASE STAGI NG PER NKF STAGE I & II GFR >= 60 NORMAL TO MILDLY DECREASED STAGE III GFR 30-59 MODERATELY DECREASED STAGE IV GFR 15-29 SEVERELY DECREASED STAGE V GFR <15 VERY LITTLE GFR LEFT ESRD GFR <15 ON ENVIRONMENTAL ENGINEERING PROFESSOR Procedures Date Code Description Status 07/15/2017 [id number] Colonoscopy Completed 04/02/2012 [id number] Colonoscopy Completed 01/16/2010 [id number] Colonoscopy Completed Medical Devices Description No Information Available Encounters Type Date Location Provider Dx Diagnosis Office Visit 01/01/2020 9:40a [facility] Mikaela banerjee, [facility] I10 Essential (primary) hypertension E78.00 Pure hypercholesterolemia, u nspecified K21.9 Gastro-esophageal reflux dis ease without esophagitis M15.9 Polyosteoarthritis, unspecif ied M10.9 Gout, unspecified R97.20 Elevated prostate specific a ntigen [PSA] E66.09 Other obesity due to excess calories Z68.30 Body mass index (BMI) 30.0-3 0.9, adult Assessments Date Code Description Provider 01/01/2020 I10 Essential (primary) hypertension Mikaela Whitley, [facility] 01/01/2020 E78.00 Pure hypercholesterolemia, unspe cified Mikaela Gutierrez, [facility] 01/01/2020 K21.9 Gastro-esophageal reflux disease without esophagitis Mikaela Whitley, [facility] 01/01/2020 M15.9 Polyosteoarthritis, unspecified Mikaela Gutierrez, [facility] 01/01/2020 M10.9 Gout, unspecified Mikaela Gtuierrez, [facility] 01/01/2020 R97.20 Elevated prostate specific antig en [PSA] Mikaela Gutierrez, [facility] 01/01/2020 E66.09 Other obesity due to excess grecia rhea Mikaela Cabrerara, [facility] 01/01/2020 Z68.30 Body mass index (BMI) 30.0-30.9, adult Mikaela Whitley, [facility] 12/25/2019 I10 Essential (primary) hypertension Mikaela Gutierrez, [facility] 12/25/2019 I10 Essential (primary) hypertension Lab Schedule 12/25/2019 E78.00 Pure hypercholesterolemia, unspe cified Mikaela Gutierrez, [facility] 12/25/2019 E78.00 Pure hypercholesterolemia, unspe cified Lab Schedule Plan of Treatment Future Appointment(s):* 05/30/2020 1:30 pm - Sandrita Nix M.D. at [facility] * 07/12/2020 1:40 pm - Nurse #2 at [facility] * 07/12/2020 2:00 pm - AUSTIN Cameron at [facility] Functional Status Description No Information Available Mental Status Description No Information Available Referrals Description No Information Available
--- OUTSIDE RECORDS SUMMARY | 2020-06-22 10:16 | CCD ---
Author Author [facility] Organization [facility] Address Unknown Phone Unavailable Care Team Providers Care Hardware Designer Name Role Phone Garrison Valentin MD Unavailable Unavailable Garrison Valentin MD Unavailable Unavailable Garrison Valentin MD Unavailable Unavailable Garrison Valentin MD Unavailable Unavailable Garrison Valentin MD Unavailable Unavailable Garrison Valentin MD Unavailable Unavailable Garrison Valentin MD Unavailable Unavailable Garrison Valentin MD Unavailable Unavailable Garrison Valentin MD Unavailable Unavailable Garrison Valentin MD Unavailable Unavailable Garrison Valentin MD Unavailable Unavailable Garrison Valentin MD Unavailable Unavailable Garrison Valentin MD Unavailable Unavailable Garrison Valentin MD Unavailable Unavailable Garrison Valentin MD Unavailable Unavailable Garrison Valentin MD Unavailable Unavailable Garrison Valentin MD Unavailable Unavailable Garrison Valentin MD Unavailable Unavailable Garrison Valentin MD Unavailable Unavailable Garrison Valentin MD Unavailable Unavailable Garrison Valentin MD Unavailable Unavailable Garrison Valentin MD Unavailable Unavailable Garrison Valentin MD Unavailable Unavailable Garrison Valentin MD Unavailable Unavailable Garrison Valentin MD Unavailable Unavailable Garrison Valentin MD Unavailable Unavailable Garrison Valentin MD Unavailable Unavailable Garrison Valentin MD Unavailable Unavailable Garrison Valentin MD Unavailable Unavailable Garrison Valentin MD Unavailable Unavailable Garrison Valentin MD Unavailable Unavailable Garrison Valentin MD Unavailable Unavailable Garrison Valentin MD Unavailable Unavailable Garrison Valentin MD Unavailable Unavailable Garrison Valentin MD Unavailable Unavailable Garrison Valentin MD Unavailable Unavailable Garrison Valentin MD Unavailable Unavailable Garrison Valentin MD Unavailable Unavailable Garrison Valentin MD Unavailable Unavailable Garrison Valentin MD Unavailable Unavailable Garrison Valentin MD Unavailable Unavailable Garrison Valentin MD Unavailable Unavailable Garrison Valentin MD Unavailable Unavailable Garrison Valentin MD Unavailable Unavailable Garrison Valentin MD Unavailable Unavailable Garrison Valentin MD Unavailable Unavailable Garrison Valentin MD Unavailable Unavailable Garrison Valentin MD Unavailable Unavailable Garrison Valentin MD Unavailable Unavailable Gutierrez, Mikaela MILLING/POLISHING OPERATOR Unavailable Unavailable Gutierrez, Mikaela MILLING/POLISHING OPERATOR Unavailable Unavailable Gutierrez, Mikaela MILLING/POLISHING OPERATOR Unavailable Unavailable Gutierrez, Mikaela MILLING/POLISHING OPERATOR Unavailable Unavailable Gutierrez, Mikaela MILLING/POLISHING OPERATOR Unavailable Unavailable Gutierrez, Mikaela MILLING/POLISHING OPERATOR Unavailable Unavailable Gutierrez, Mikaela MILLING/POLISHING OPERATOR Unavailable Unavailable Gutierrez, Mikaela MILLING/POLISHING OPERATOR Unavailable Unavailable Gutierrez, Mikaela MILLING/POLISHING OPERATOR Unavailable Unavailable Gutierrez, Mikaela MILLING/POLISHING OPERATOR Unavailable Unavailable Gutierrez, Mikaela MILLING/POLISHING OPERATOR Unavailable Unavailable Gutierrez, Mikaela MILLING/POLISHING OPERATOR Unavailable Unavailable Gutierrez, Mikaela MILLING/POLISHING OPERATOR Unavailable Unavailable Gutierrez, Mikaela MILLING/POLISHING OPERATOR Unavailable Unavailable Gutierrez, Mikaela MILLING/POLISHING OPERATOR Unavailable Unavailable Gutierrez, Mikaela MILLING/POLISHING OPERATOR Unavailable Unavailable Gutierrez, Mikaela MILLING/POLISHING OPERATOR Unavailable Unavailable Gutierrez, Mikaela MILLING/POLISHING OPERATOR Unavailable Unavailable Gutierrez, Mikaela MILLING/POLISHING OPERATOR Unavailable Unavailable Gutierrez, Mikaela MILLING/POLISHING OPERATOR Unavailable Unavailable Gutierrez, Mikaela MILLING/POLISHING OPERATOR Unavailable Unavailable Gutierrez, Mikaela MILLING/POLISHING OPERATOR Unavailable Unavailable Gutierrez, Mikaela MILLING/POLISHING OPERATOR Unavailable Unavailable Gutierrez, Mikaela MILLING/POLISHING OPERATOR Unavailable Unavailable Gutierrez, Mikaela MILLING/POLISHING OPERATOR Unavailable Unavailable Gutierrez, Mikaela MILLING/POLISHING OPERATOR Unavailable Unavailable Gutierrez, Mikaela MILLING/POLISHING OPERATOR Unavailable Unavailable Sri Nix MD Unavailable Unavailable Sri Nix MD Unavailable Unavailable Sri Nix MD Unavailable Unavailable Sri Nix MD Unavailable Unavailable Sri Nix MD Unavailable Unavailable Sri Nix MD Unavailable Unavailable Sri Nix MD Unavailable Unavailable Sri Nix MD Unavailable Unavailable Sri Nix MD Unavailable Unavailable Sri Nix MD Unavailable Unavailable Sri Nix MD Unavailable Unavailable Sri Nix MD Unavailable Unavailable DinahSri lozada MD Unavailable Unavailable DinahSri hardy MD Unavailable Unavailable DinahSri hardy MD Unavailable Unavailable DinahSri MD Unavailable Unavailable DinahSri MD Unavailable Unavailable DinahSri MD Unavailable Unavailable DinahSri MD Unavailable Unavailable DinahSri lozada MD Unavailable Unavailable DinahSri MD Unavailable Unavailable DinahSri MD Unavailable Unavailable DinahSri MD Unavailable Unavailable DinahSri MD Unavailable Unavailable DinahSri MD Unavailable Unavailable DinahSri MD Unavailable Unavailable DinahSri MD Unavailable Unavailable IdnahSri MD Unavailable Unavailable DinahSri MD Unavailable Unavailable DinahSri MD Unavailable Unavailable DinahSri hardy MD Unavailable Unavailable Sri Nix MD Unavailable Unavailable DinahSri lozada MD Unavailable Unavailable Sri Nix MD Unavailable Unavailable Sri Nix MD Unavailable Unavailable Sri Nix MD Unavailable Unavailable DinahSri lozada MD Unavailable Unavailable Sri Nix MD Unavailable Unavailable Sri Nix MD Unavailable Unavailable Sri Nix MD Unavailable Unavailable Sri Nix MD Unavailable Unavailable Sri Nix MD Unavailable Unavailable Sri Nix MD Unavailable Unavailable Sri Nix MD Unavailable Unavailable Sri Nix MD Unavailable Unavailable Sri Nix MD Unavailable Unavailable Sri Nix MD Unavailable Unavailable Sri Nix MD Unavailable Unavailable Sri Nix MD Unavailable Unavailable Sri Nix MD Unavailable Unavailable Sri Nix MD Unavailable Unavailable Sri Nix MD Unavailable Unavailable Sri Nix MD Unavailable Unavailable Sri Nix MD Unavailable Unavailable Sri Nix MD Unavailable Unavailable Sri Nix MD Unavailable Unavailable Sri Nix MD Unavailable Unavailable Sri Nix MD Unavailable Unavailable Sri Nix MD Unavailable Unavailable Sri Nix MD Unavailable Unavailable DinahSri hardy MD Unavailable Unavailable Sri Nix MD Unavailable Unavailable Dinah, M Sandrita MD Unavailable Unavailable Sri Nix MD Unavailable Unavailable Sri Nix MD Unavailable Unavailable Dinah, Sri Remy MD Unavailable Unavailable Dinah, Sri Remy MD Unavailable Unavailable Dinah, Sri Remy MD Unavailable Unavailable Sri Nix MD Unavailable Unavailable Sri Nix MD Unavailable Unavailable Dinah, Sri Remy MD Unavailable Unavailable DinahSri MD Unavailable Unavailable Dinah, Sri Remy MD Unavailable Unavailable DinahSri MD Unavailable Unavailable DinahSri MD Unavailable Unavailable Sri Nix MD Unavailable Unavailable Dinah, Sri Remy MD Unavailable Unavailable Sri Nix MD Unavailable Unavailable PICKERAL JR, J DAMIAN PA-C Unavailable Unavailable PICKERAL JR, J DAMIAN PA-C Unavailable Unavailable PICKERAL JR, J DAMIAN PA-C Unavailable Unavailable PICKERAL JR, J DAMIAN PA-C Unavailable Unavailable PICKERAL JR, J DAMIAN PA-C Unavailable Unavailable PICKERAL JR, J DAMIAN PA-C Unavailable Unavailable PICKERAL JR, J DAMIAN PA-C Unavailable Unavailable PICKERAL JR, J DAMIAN PA-C Unavailable Unavailable PICKERAL JR, J DAMIAN PA-C Unavailable Unavailable PICKERAL JR, J DAMIAN PA-C Unavailable Unavailable PICKERAL JR, J DAMIAN PA-C Unavailable Unavailable PICKERAL JR, J DAMIAN PA-C Unavailable Unavailable PICKERAL JR, J DAMIAN PA-C Unavailable Unavailable PICKERAL JR, J DAMIAN PA-C Unavailable Unavailable PICKERAL JR, J DAMIAN PA-C Unavailable Unavailable PICKERAL JR, J DAMIAN PA-C Unavailable Unavailable PICKERAL JR, J DAMIAN PA-C Unavailable Unavailable PICKERAL JR, J DAMIAN PA-C Unavailable Unavailable PICKERAL JR, J DAMIAN PA-C Unavailable Unavailable PICKERAL JR, J DAMIAN PA-C Unavailable Unavailable [id number], NA Unavailable Unavailable Re-disclosure Warning The records that you are about to access may contain information from federally-assisted alcohol or drug abuse programs. If such information is present, then the following federally mandated warning applies: This information has been disclosed to you from records protected by federal confidentiality rules (42 CFR part 2). The federal rules prohibit you from making any further disclosure of this information unless further disclosure is expressly permitted by the written consent of the person to whom it pertains or as otherwise permitted by 42 CFR part 2. A general authorization for the release of medical or other information is NOT sufficient for this purpose. The Federal rules restrict any use of the information to criminally investigate or prosecute any alcohol or drug abuse patient.The records that you are about to access may contain highly sensitive health information, the redisclosure of which is protected by Article 27-F of the [facility] Public Health law. If you continue you may have access to information: Regarding HIV / AIDS; Provided by facilities licensed or operated by the [facility] Office of Mental Health; or Provided by the [facility] Office for People With Developmental Disabilities. If such information is present, then the following [facility] mandated warning applies: This information has been disclosed to you from confidential records which are protected by state law. State law prohibits you from making any further disclosure of this information without the specific written consent of the person to whom it pertains, or as otherwise permitted by law. Any unauthorized further disclosure in violation of state law may result in a fine or assisted sentence or both. A general authorization for the release of medical or other information is NOT sufficient authorization for further disc losure. Family History Family Member Name Family Member Gender Family Member Status Date o f Status Description Data Source(s) Unknown Unknown Problem [facility] ([facility]) Mother. Unknown Male Problem [facility] ([facility]) Unknown Male Problem [facility] ([facility]) Unknown Unknown Problem [facility] ([facility] ) Encounters Encounter Providers Location Date Indications Data Source(s ) Outpatient Attender: Jose Valentin MD Main Office 06/09/2020 12:45:00 PM EST [facility] ([facility]) Outpatient Attender: Sandrita Kilgore 01:30:00 PM EST [facility] ([facility] ) Office Visit Attender: NA [id number] Kunal Kilgore 05/30 01:00:00 PM EST [facility] ([facility] ) Outpatient Attender: DAMIAN Kilgore 1 07/05/2019 12:20:00 PM EST [facility] ([facility] ) Outpatient Attender: Mikaela Kilgore 09:40:00 AM EDT [facility] ([facility] ) Immunizations Vaccine Date Status Description Data Source(s) This CVX code allows reporting of a vacc ination when formulation is unknown (for example, when recording a Influenza vaccination when noted on a vaccination card) 02/25/2020 10:36:00 AM EDT completed SANCHEZ T ([facility]) INFLUENZA VACCINE TVS 2019- (65 YR UP)/ADJUVANT MF59 C.1/PF 02/25/2020 12:00:00 AM EDT completed [facility] Medications Medication Brand Name Start Date Product Form Dose Route Admi nistrative Instructions Pharmacy Instructions Status Indications Reaction Description Data Source(s) Suprep Bowel Prep Kit Suprep Bowel Prep Kit 06/09/2020 12:00:00 AM EST active [facility] ([facility]) coenzyme Q10 200 MG Oral Capsule Coenzyme Q-10 05/30/2020 12:00:00 AM EST active [facility] ([facility]) atorvastatin 20 MG Oral Tablet Atorvastatin Calcium 05/30/2020 1 2:00:00 AM EST ORAL active [facility] ( [facility]) Covid-19 vaccine, Unspecified 05/19/2020 12:00:00 AM EST completed [facility] ([facility]) Medication administered onsite 800 mg 05/12/2020 12:00:00 AM EST tablet,delayed release (DR/EC) 270 TAKE ONE TABLET BY MOUTH THREE TIMES A DAY TAKE ONE TABLET BY MOUTH THREE TIMES A D AY SOLD: 05/12/2020 [facility] mesalamine 800 MG Delayed Release Oral Tablet [Asacol] Asaco l HD 05/02/2020 12:00:00 AM EST ORAL active M EDENT ([facility]) mesalamine 800 MG Delayed Release Oral Tablet [Asacol] Asaco l HD 04/27/2020 12:00:00 AM EST ORAL completed [facility] ([facility]) Vitamin B 12 2.5 MG Chewable Tablet [facility] B12 05/07/2019 12:00:[address] ORAL active [facility] ([facility]) Insurance Providers Payer name Policy type / Coverage type Policy ID Covered alliance party ID Covered alliance party's relationship to ace Policy Ace Plan Information [facility] [id number] [facility] [id number] MEDICARE [id number] SP [id number] UMR O [id number] S [id number] MEDICARE C [id number] S [id number] [place] [employer] COMP [id number] SP [id number] UMR [facility] [id number] [employer] PPO O [id number] P [id number] [place] (pr) Medigap Part B [id number] Family Dependent [id number] [place] Primary [id number] Self [id number] [place] () Workers Compensation [id number] Self [id number] Umr (pr) Medigap Part B [id number] Self [id number] [place] [employer] () Workers Compensation [id number] Self [id number] [place] (pr) Medigap Part B [id number] Family Dependent [id number] [place] Primary [id number] Self [id number] o [employer] Health Maintenance Organization (HMO) [id number] Self [id number] [place] [employer] Workers Compensation [id number] Self [id number] [place]/Umr (Old) Medigap Part B [id number] Family Dependent [id number] Umr (New [place]) Medigap Part B [id number] Family Dependent [id number] Medicare Natl Govt Serv Medicare Primary [id number] Self [id number] BS Demetrius Trad/MX Medigap Part B [id number] Self [id number] [place] (pr) Medigap Part B [id number] Family Dependent [id number] [place] Medicare Primary [id number] Self [id number] [place] [employer] ([place]) Workers Compensation [id number] Self [id number] [place] (pr) Medigap Part B [id number] Family Dependent [id number] [place] Primary [id number] Self [id number] [place] (pr) Medigap Part B [id number] Family Dependent [id number] [place] Primary [id number] Self [id number] [place] (pr) Medigap Part B [id number] Family Dependent [id number] [place] Medicare Primary [id number] Self [id number] [place] ([place] Workers Compensation [id number] Self [id number] [place] Medigap Part B [id number] Self [id number] [place] (pr) Medigap Part B [id number] Family Dependent [id number] [employer] [id number] [place] [id number] MEDICARE [id number] SP [id number] A [place] Medigap Part B [id number] Self [id number] [place] (pr) Medigap Part B [id number] Family Dependent [id number] [place] ([place]) Workers Compensation [id number] Self [id number] [place] Medigap Part B [id number] Family Dependent [id number] [place] Medicare Primary [id number] Self [id number] [employer] [id number] [place] [id number] [place] Medigap Part B [id number] Self [id number] [place] (pr) Medigap Part B [id number] Family Dependent [id number] [employer] Maintenance [employer] ([employer]sie) [id number] Self [id number] [place] [employer] Workers Compensation [id number] Self [id number] Umr [place] Ppo Medigap Part B [id number] Family Dependent [id number] Medicare Natl Govt Servic Medicare Primary [id number] Self [id number] [place] Medigap Part B [id number] Self [id number] [place] (pr) Medigap Part B [id number] Family Dependent [id number] [place] Medigap Part B [id number] Self [id number] [place] (pr) Medigap Part B [id number] Family Dependent [id number] [place] Medigap Part B [id number] Self [id number] [place] (pr) Medigap Part B [id number] Family Dependent [id number] ONE CALL CARE MANAGEMENT O [id number] P [id number] [place] Medigap Part B [id number] Self [id number] [place] (pr) Medigap Part B [id number] Family Dependent [id number] [place] [employer] ([place]) Workers Compensation Self [place] [employer] Workers Compensation [id number] Self [id number] o [employer] Maintenance Organization (2heuresavantO) Se lf BS [place] Trad/MX Commercial 802 Self [id number] [place] Ppo Medigap Part B [id number] Family Dependent [id number] Medicare Natl Govt Servic Medicare Primary Self Medicare [facility] Medicare Primary Self [place] (pr) Medigap Part B Family Dependent MEDICARE C [id number] S [id number] A [place] Medigap Part B Family Dependent Medicare [place]/[facility] Medicare Primary Self [id number] Problems, Conditions, and Diagnoses Code Display Name Description Problem Type Effective Dates Data Source(s) [id number] Screening for malignant neoplasm of colo n Screening for malignant neoplasm of colon Problem 06/09/2020 12:00:00 AM EST [facility] ([facility]) Surgeries/Procedures Procedure Description Date Indications Data Source(s) ECG ROUTINE ECG W/LEAST 12 LDS W/I&R 05/30/2020 12:00: 00 AM EST [facility] ([facility]) Results ID Date Data Source [id number] 06/20/2020 12:00:00 AM EST [facility] Sandrita Nix MD Patient Name: VITOR GODWIN [id number] [facility] Date of : Floor Date of Exam: 06/20/2020RAYMOND Naqvi [id number]#: Fax: [phone] EXAM: MRI BRAIN WITHOUT&WITH CONTRASTPROCEDURE INFORMATION:Exam: MR Head Without and With ContrastExam date and time: 06/20/2020 10:43 AM Age: 75 years old Clinicalindication: Altered mental status/memory lossTECHNIQUE: Imaging protocol: MR of the head without and with intravenouscontrast. Contrast material: PROHANCE; Contrast volume: 9 ml; Contrastroute: INTRAVENOUS (IV);COMPARISON: No relevant prior studies available.FINDINGS: Brain: No acute intracranial abnormality. No evidence ofrestricted diffusion to suggest an acute infarct. No mass, midline shift,or mass effect. No evidence of hemorrhage. Mild periventricular,subcortical, and deep white matter FLAIR signal abnormalities representingsmall vessel ischemic changes. No abnormal enhancement.Cerebral ventricles: Ventricles and sulci are enlarged representingmoderate volume loss. Bones/joints: Unremarkable.Paranasal sinuses: Small mucous retention cyst in bilateral maxillarysinuses. Mild mucosal thickening of the ethmoidal air cells.Mastoid air cells: Trace fluid in bilateral mastoid air cells.Orbital cavity: Unremarkable.Soft tissues: Unremarkable.IMPRESSION:No acute intracranial abnormality. Moderate volume loss and mild smallvessel ischemic changes. Mild sinus disease. Trace fluid in bilateralmastoid air cells.Thank you for allowing us to participate in the care of your patient.Dictated and Authenticated by: Ewa Cabrera MD 06/20/2020 11:34 AMEastern Time ([place] & [place])TooV/jmcTreyna you for referring CHLOE ADLER JR to our office. Electronically Signed - TOO 06/20/20 12:31 Name Value Range Interpretation Code Description Data Johnna rce(s) Supporting Document(s) ID Date Data Source [id number] 06/17/2020 12:00:00 PM EST [facility] Name Value Range Interpretation Code Description Data Johnna rce(s) Supporting Document(s) SARS coronavirus 2 RNA Not Detected [facility] This lab was ordered by [facility] and reported by [facility]. ID Date Data Source [id number] 06/09/2020 02:48:00 PM EST [facility] ([facility]) Name Value Range Interpretation Code Description Data Johnna rce(s) Supporting Document(s) C reactive protein [Mass/volume] in Serum or Plasma by High sensitivity method 0.37 mg/dL 0.00-0.30 [facility] ([facility] ) Lipoprotein lipase [Enzymatic activity/volume] in Serum or P lasma 166 U/L 73-393 [facility] ([facility]) ID Date Data Source [id number] 06/09/2020 02:47:00 PM EST [facility] ([facility]) Name Value Range Interpretation Code Description Data Johnna rce(s) Supporting Document(s) Glucose [Mass/volume] in Serum or Plasma 98 mg/dL 74-99 [facility] ([facility]) 100-125 mg/dL PRE-DIABETES/FASTING >126 mg/dL DIABETES/FASTING Urea nitrogen [Mass/volume] in Serum or Plasma 13 mg/dL 7-18 [facility] ([facility]) Creatinine 1.5 mg/dL 0.6-1.3 [facility] ([facility]) Chloride [Moles/volume] in Serum or Plasma 102 meq/L 98-107 [facility] ([facility]) Sodium [Moles/volume] in Serum or Plasma 139 meq/L 136-145 [facility] ([facility]) Carbon dioxide, total [Moles/volume] in Serum or Plasma 34 meq/L 21 -32 [facility] ([facility]) Potassium [Moles/volume] in Serum or Plasma 4.1 meq/L 3.5-5.1 [facility] ([facility]) Calcium [Mass/volume] in Serum or Plasma 8.5 mg/dL 8.5-10.1 [facility] ([facility]) Total Bilirubin 0.5 mg/dL 0.2-1.0 [facility] ([facility]) Alkaline phosphatase isoenzyme [Units/volume] in Serum or Pl asma 96 mg/dL 46-116 [facility] ([facility]) Alanine aminotransferase [Enzymatic activity/volume] in Seru m or Plasma 24 U/L 12-78 [facility] ([facility]) Aspartate aminotransferase [Enzymatic activity/volume] in Serum or Plasma 29 U/L 15-37 [facility] ([facility] ) Albumin [Mass/volume] in Serum or Plasma 3.7 g/dL 3.4-5.0 [facility] ([facility]) Proteinase 3 Ab [Units/volume] in Serum 7.5 g/dL 6.4-8.2 [facility] ([facility]) A/G Ratio 0.97 CALC 1.00-1.90 [facility] ([facility]) Glomerular filtration rate/1.73 sq M pre dicted among non-blacks [Volume Rate/Area] in Serum or Plasma by Creatinine-based formula (MDRD) 46 mL/min [facility] Glomerular filtration rate/1.73 sq M pre dicted among blacks [Volume Rate/Area] in Serum or Plasma by Creatinine-based formula (MDRD) 56 mL/min [facility] [facility] <content>CHRONIC KIDNEY DISEASE STAGING PER NKF</content>
<content></content>
<content>STAGE I & II GFR >= 60 NORMAL TO MILDLY DECREASED</content>
<content>STAGE III GFR 30-59 MODERATELY DECREASED</content>
<content>STAGE IV GFR 15-29 SEVERELY DECREASED</content>
<content>STAGE V GFR <15 VERY LITTLE GFR LEFT</content>
<content>ESRD GFR <15 ON COMPRESSION MOLDING MACHINE SETTER</content>
<content></content> ID Date Data Source [id number] 06/09/2020 02:47:00 PM EST [facility] Name Value Range Interpretation Code Description Data Johnna rce(s) Supporting Document(s) Erythrocytes [#/volume] in Blood by Automated count 4.18 x10*6/UL 4.2 0-6.30 [facility] Hemoglobin [Mass/volume] in Blood 13.3 g/dL 12.0-18.0 [facility] Leukocytes [#/volume] in Blood by Automated count 5.2 x10*3/UL 4.1-10 .9 [facility] Hematocrit [Volume Fraction] of Blood by Automated count 39.2 % 3 7.0-51.0 [facility] ([facility]) MCV 93.6 fL 80.0-97.0 [facility] [facility] MCH 31.8 pg 26.0-32.0 [facility] [place] [facility] MCHC 33.9 g/dL 31.0-38.0 [facility] ([facility]) Erythrocyte distribution width [Ratio] by Automated count 12.4 % 11.6-13.7 [facility] ([facility]) Platelets [#/volume] in Blood by Automated count 174 x10*3/UL 140-440 [facility] ([facility]) Mid % 7.4 % 1.7-9.3 [facility] [facility] MPV 8.6 FL 7.8-11.0 [facility] [place] [facility] Lymph % 36.8 % 10.0-58.5 [facility] ([facility]) Mid # 0.4 x10*3/UL 0.1-0.6 [facility] ([facility] [facility] Neut % 55.8 % 37.0-92.0 [facility] [facility]) Neut # 2.9 x10*3/UL 2.0-7.8 [facility] ([facility]) Lymph # 1.9 x10*3/UL 0.6-4.1 [facility] ([facility]) ID Date Data Source [id number] 05/30/2020 03:37:00 PM EST [facility] ([facility]) Name Value Range Interpretation Code Description Data Johnna rce(s) Supporting Document(s) C reactive protein [Mass/volume] in Serum or Plasma by High sensitivity method 0.44 mg/dL 0.00-0.30 [facility] [facility] ID Date Data Source [id number] 05/30/2020 03:37:00 PM EST [facility] Name Value Range Interpretation Code Description Data Johnna rce(s) Supporting Document(s) Blood Urea Nitrogen 24 mg/dL 7-18 [facility] ([facility]) Glucose, Fasting 84 mg/dL 70-100 [facility] ([facility]) Creatinine For GFR 1.43 mg/dL 0.70-1.30 [facility] ([facility]) Glomerular Filtration Rate 51.6 [facility] ([facility]) <content>Units are mL/min/1.73 m2</content>
<content></content>
<content>Chronic Kidney Disease Staging per NKF:</content>
<content></content>
<content>Stage I & II GFR >=60 Normal to Mildly Decreased</content>
<content>Stage III GFR 30- 59 Moderately Decreased</content>
<content>Stage IV GFR 15-29 Severely Decreased</content>
<content>Stage V GFR <15 Very Little GFR Left</content>
<content>ESRD GFR <15 on COMPRESSION MOLDING MACHINE SETTER</content>
<content></content> Sodium Level 141 meq/L 136-145 [facility] ([facility]) Carbon Dioxide Level 32 meq/L 21-32 [facility] ([facility]) Potassium Serum 4.2 meq/L 3.5-5.1 [facility] ([facility]) Chloride Level 105 meq/L 98-107 [facility] ([facility]) Anion Gap 4 meq/L 8-16 [facility] ([place] [facility]) Calcium Level 9.2 mg/dL 8.8-10.2 [facility] ([facility]) ID Date Data Source [id number] 05/30/2020 03:37:00 PM EST [facility] ([facility]) Name Value Range Interpretation Code Description Data Johnna rce(s) Supporting Document(s) Antinuclear Antibodies Direct Laboratory test result Abnormal (applies to non- numeric results) [facility] ([facility]) Fan Antibodies Laboratory test result 0.0-0.9 [facility] ([facility]) SAFE AND VAULT INSTALLER Antibodies 3.5 AI 0.0-0.9 [facility] ([facility]) Anti Double Strand-Dna AB Laboratory test result 0-9 [facility] ([facility]) <content>Negative <5</content>
<content>Equivocal 5 - 9</content>
<content>Positive >9</content>
<content></content> Sjogren's Anti SS-B Laboratory test result 0.0-0.9 [facility] ([facility]) Sjogren's Anti SS-A Laboratory test result 0.0-0.9 [facility] ([facility]) Griselda Comment Laboratory test result SANCHEZ Guerra ([facility]) . Autoantibody Disease Association Condition Frequency -------- [...] (anti-Fan) SLE 15 - 30% ------- --------- SAFE AND VAULT INSTALLER Mixed Connective Tissue Disease 95% (U1 nRNP, SLE 30 - 50% anti-ribonucleoprotein) Polymyositis and/or Dermatomyositis 20% -------- --------- Scl-70 (antiDNA Scleroderma (diffuse) 20 - 35% topoisomerase) Crest 13% -------- --------- Lauryn-1 Polymyositis and/or Dermatomyositis 20 - 40% -------- --------- Centromere B Scleroderma - Crest variant 80% Performed at: - [facility] [id number] Medicare Biller: Gris Oro MD, Phone: [phone] Performed at: [facility] [id number] Medicare Biller: Minh Mora MD, Phone: [phone] ID Date Data Source [id number] 05/30/2020 03:37:00 PM EST [facility] ([facility]) Name Value Range Interpretation Code Description Data Johnna rce(s) Supporting Document(s) Cyclic citrullinated peptide IgG Ab [Units/volume] in Serum or Plasma 6 units 0-19 [facility] ([facility]) <content>Negative <20</con tent>
<content>Weak positive 20 - 39</content>
<content>Moderate positive 40 - 59</content>
<content>Strong positive >59</content>
<content></content> Rheumatoid Factor Quant [facility] Urate [Mass/volume] in Serum or Plasma 2.6 mg/dL 3.5-7.2 [facility] ([facility]) Cobalamin (Vitamin B12) [Mass/volume] in Serum or Plasma 859 pg/mL 2 47-911 [facility] VITAMIN B12 NORMAL RANGE NORMAL 247 - 911 PG/ML INDETERMINATE 211 - 246 PG/ML DEFICIENT LESS THAN 211 PG/ML ID Date Data Source [id number] 05/30/2020 03:37:00 PM EST [facility] Name Value Range Interpretation Code Description Data Johnna rce(s) Supporting Document(s) Lyme Disease IgG/IgM Antibodie Laboratory test result 0.00-0.90 [facility] ([facility]) <content>Negative <0.91</content >
<content>Equivocal 0.91 - 1.09</content>
<content>Positive >1.09</content>
<content></content> Lyme Disease IgM Ab Quantitati Laboratory test result 0.00-0.79 [facility] ([facility]) <content>Negative <0.80</content >
<content>Equivocal 0.80 - 1.19</content>
<content>Positive >1.19</content>
<content>.</content>
<content>IgM levels may peak at 3-6 weeks post infection, then</content>
<content>gradually decline.</content>
<content></content> ID Date Data Source [id number] 05/30/2020 03:37:00 PM EST [facility] ([facility]) Name Value Range Interpretation Code Description Data Johnna rce(s) Supporting Document(s) Thyrotropin [Units/volume] in Serum or Plasma by Detec tion limit <= 0.05 mIU/L 4.100 uIU/ML 0.358-3.740 [facility] ([facility] ) ID Date Data Source [id number] 05/30/2020 03:33:00 PM EST [facility] ([facility]) Name Value Range Interpretation Code Description Data Johnna rce(s) Supporting Document(s) Erythrocyte sedimentation rate by Westergren method 35 mm/hr 0-15 [facility] ([facility]) ID Date Data Source [id number] 05/30/2020 03:33:00 PM EST [facility] ([facility]) Name Value Range Interpretation Code Description Data Johnna rce(s) Supporting Document(s) Urine Color Laboratory test result [facility] T ([facility]) Specific gravity of Urine 1.025 1.005-1.030 ME DENT ([facility]) Urine Appearance Laboratory test result Abnormal (applies to non-numeric results) [facility] ([facility]) Urine PH 5.0 units 5.0-9.0 [facility] [facility]) Urine Protein Laboratory test result 0-0 [facility] ([facility]) Urine Leukocytes Laboratory test result [facility] ([facility]) Urine Blood Laboratory test result [facility] T ([facility]) Urine Ketone Laboratory test result MEDE NT ([facility]) Glucose [Presence] in Urine Laboratory test result [facility] ([facility]) Urine Nitrite Laboratory test result [facility] ([facility]) Bilirubin.total [Mass/volume] in Serum or Plasma Laboratory test resu lt [facility] ([facility]) Urine Urobilinogen 0.2 mg/dL 0.2-1.0 [facility] ([facility]) ID Date Data Source [id number] 05/04/2020 03:28:00 PM EST [facility] ([facility]) Name Value Range Interpretation Code Description Data Johnna rce(s) Supporting Document(s) Campylobacter Laboratory test result [facility] ([facility]) Laboratory test finding (navigational concept) Laboratory test result [facility] ([facility]) Salmonella Laboratory test result [facility] ([facility]) Laboratory test finding (navigational concept) Laboratory test result [facility] ([facility]) Laboratory test finding (navigational concept) Laboratory test result [facility] ([facility]) Laboratory test finding (navigational concept) Laboratory test result [facility] [facility] Vibrio cholerae Laboratory test result M [facility] ([place] [facility] Laboratory test finding (navigational concept) Laboratory test result [facility] ([facility]) Laboratory test finding (navigational concept) Laboratory test result [facility] [facility] Laboratory test finding (navigational concept) Laboratory test result [facility] ([facility]) Laboratory test finding (navigational concept) Laboratory test result [facility] ([facility]) Laboratory test finding (navigational concept) Laboratory test result [facility] ([facility]) Laboratory test finding (navigational concept) Laboratory test result [facility] [facility] Entamoeba histolytica Laboratory test result [facility] [facility] Laboratory test finding (navigational concept) Laboratory test result [facility] ([place] [facility] Cryptosporidium Laboratory test result [facility] ([facility]) Giardia lamblia Laboratory test result [facility] [facility] Laboratory test finding (navigational concept) Laboratory test result [facility] ([facility]) Laboratory test finding (navigational concept) Laboratory test result [facility] ([facility]) Astrovirus Laboratory test result [facility] ([facility]) Rotavirus A Laboratory test result [facility] T ([place] [facility] Laboratory test finding (navigational concept) Laboratory test result [facility] ([facility]) Performed at: [address] [id number] Medicare Biller: Minh Mora MD, Phone: [phone] Not Detected ID Date Data Source [id number] 05/04/2020 12:00:00 AM EST [facility] Damian EPSTEIN Patient Name: CHLOE ADLER [id number] [facility] 1945[facility] [id number] Date of Exam: 05/04/2020#: Fax: [phone] EXAM: CHEST (2 VIEW) X-RAYCLINICAL INFORMATION: Left rib pain.COMPARISON: 05/05/2014.The superior mediastinal structures are midline. The heart is notenlarged. The diaphragmatic surfaces of the lungs are regular and thecostophrenic angles are clear. The pulmonary santa are clear. Thevisualized osseous structures are intact. There are mild to moderatedegenerative changes of the spine.IMPRESSION:There is no acute cardiopulmonary disease.JESSICA Campbell/Araseli you for referring CHLOE ADLER to our office. Electronically Signed - MARCELLO NORRIS MD 05/05/20 16:50 Name Value Range Interpretation Code Description Data Johnna rce(s) Supporting Document(s) ID Date Data Source [id number] 05/04/2020 01:48:00 PM EST [facility] ([facility]) Name Value Range Interpretation Code Description Data Johnna rce(s) Supporting Document(s) C reactive protein [Mass/volume] in Serum or Plasma by High sensitivity method 3.85 mg/dL 0.00-0.30 [facility] ([facility] ) ID Date Data Source [id number] 05/04/2020 01:47:00 PM EST [facility] ([facility]) Name Value Range Interpretation Code Description Data Johnna rce(s) Supporting Document(s) Glucose [Mass/volume] in Serum or Plasma 101 mg/dL 74-99 [facility] ([facility]) 100-125 mg/dL PRE-DIABETES/FASTING >126 mg/dL DIABETES/FASTING Urea nitrogen [Mass/volume] in Serum or Plasma 16 mg/dL 7-18 [facility] ([facility]) Creatinine 1.3 mg/dL 0.6-1.3 [facility] ([facility]) Potassium [Moles/volume] in Serum or Plasma 4.2 meq/L 3.5-5.1 [facility] ([facility]) Sodium [Moles/volume] in Serum or Plasma 141 meq/L 136-145 [facility] ([facility]) Carbon dioxide, total [Moles/volume] in Serum or Plasma 27 meq/L 21 -32 [facility] ([facility]) Calcium [Mass/volume] in Serum or Plasma 8.6 mg/dL 8.5-10.1 [facility] ([facility]) Chloride [Moles/volume] in Serum or Plasma 104 meq/L 98-107 [facility] ([facility]) Alkaline phosphatase isoenzyme [Units/volume] in Serum or Pl asma 82 mg/dL 46-116 [facility] ([facility]) Aspartate aminotransferase [Enzymatic activity/volume] in Serum or Plasma 27 U/L 15-37 [facility] ([place] [facility] Total Bilirubin 0.7 mg/dL 0.2-1.0 [facility] ([facility]) Alanine aminotransferase [Enzymatic activity/volume] in Seru m or Plasma 26 U/L 12-78 [facility] ([facility]) Proteinase 3 Ab [Units/volume] in Serum 7.4 g/dL 6.4-8.2 [facility] ([facility]) Albumin [Mass/volume] in Serum or Plasma 3.6 g/dL 3.4-5.0 [facility] ([facility]) Glomerular filtration rate/1.73 sq M pre dicted among blacks [Volume Rate/Area] in Serum or Plasma by Creatinine-based formula (MDRD) Laboratory test result [facility] [facility] <content>CHRONIC KIDNEY DISEASE STAGING PER NKF</content>
<content></content>
<content>STAGE I & II GFR >= 60 NORMAL TO MILDLY DECREASED</content>
<content>STAGE III GFR 30-59 MODERATELY DECREASED</content>
<content>STAGE IV GFR 15-29 SEVERELY DECREASED</content>
<content>STAGE V GFR <15 VERY LITTLE GFR LEFT</content>
<content>ESRD GFR <15 ON COMPRESSION MOLDING MACHINE SETTER</content>
<content></content> Glomerular filtration rate/1.73 sq M pre dicted among non-blacks [Volume Rate/Area] in Serum or Plasma by Creatinine-based formula (MDRD) 54 mL/min [facility] ([place] [facility] A/G Ratio 0.95 CALC 1.00-1.90 [facility] ([facility]) ID Date Data Source [id number] 05/04/2020 01:47:00 PM EST [facility] ([facility]) Name Value Range Interpretation Code Description Data Johnna rce(s) Supporting Document(s) Erythrocyte sedimentation rate by Westergren method 36 mm/hr 0-15 [facility] [facility] ID Date Data Source [id number] 05/04/2020 01:47:00 PM EST [facility] Name Value Range Interpretation Code Description Data Johnna rce(s) Supporting Document(s) Leukocytes [#/volume] in Blood by Automated count 8.1 x10*3/UL 4.1-10 .9 [facility] ([place] [facility] Erythrocytes [#/volume] in Blood by Automated count 4.18 x10*6/UL 4.2 0-6.30 [facility] ([place] [facility] Hemoglobin [Mass/volume] in Blood 13.5 g/dL 12.0-18.0 [facility] [facility] Hematocrit [Volume Fraction] of Blood by Automated count 38.9 % 3 7.0-51.0 [facility] [facility] MCV 93.0 fL 80.0-97.0 [facility] ([facility]) Erythrocyte distribution width [Ratio] by Automated count 12.6 % 11.6-13.7 [facility] ([facility]) MCH 32.2 pg 26.0-32.0 [facility] ([facility]) MCHC 34.6 g/dL 31.0-38.0 [facility] ([facility]) Lymph % 16.8 % 10.0-58.5 [facility] ([facility]) MPV 9.1 FL 7.8-11.0 [facility] [facility]) Platelets [#/volume] in Blood by Automated count 173 x10*3/UL 140-440 [facility] ([facility]) Lymph # 1.3 x10*3/UL 0.6-4.1 [facility] ([facility]) Mid % 4.3 % 1.7-9.3 [facility] [facility]) Neut % 78.9 % 37.0-92.0 [facility] [facility]) Neut # 6.3 x10*3/UL 2.0-7.8 [facility] ([facility]) Mid # 0.5 x10*3/UL 0.1-0.6 [facility] ([facility]) ID Date Data Source [id number] 12/25/2019 08:58:00 AM EDT [facility] ([facility]) Name Value Range Interpretation Code Description Data Johnna rce(s) Supporting Document(s) Cholesterol [Mass/volume] in Serum or Plasma 91 mg/dL 131-200 [facility] ([facility]) Cholesterol in LDL [Mass/volume] in Serum or Plasma by calcu lation 40 CALC 50-159 [facility] ([facility]) Triglyceride [Mass/volume] in Serum or Plasma 102 mg/dL 30-150 [facility] ([facility]) Cholesterol in HDL [Mass/volume] in Serum or Plasma 31 mg/dL 35-60 [facility] ([facility]) ID Date Data Source [id number] 12/25/2019 08:58:00 AM EDT [facility] ([facility]) Name Value Range Interpretation Code Description Data Johnna rce(s) Supporting Document(s) Urea nitrogen [Mass/volume] in Serum or Plasma 13 mg/dL 7-18 [facility] ([facility]) Glucose [Mass/volume] in Serum or Plasma 92 mg/dL 74-99 [facility] ([facility]) 100-125 mg/dL PRE-DIABETES/FASTING >126 mg/dL DIABETES/FASTING Creatinine 1.4 mg/dL 0.6-1.3 [facility] ([facility]) Sodium [Moles/volume] in Serum or Plasma 145 meq/L 136-145 [facility] [facility] Potassium [Moles/volume] in Serum or Plasma 4.2 meq/L 3.5-5.1 [facility] ([place] [facility] Chloride [Moles/volume] in Serum or Plasma 107 meq/L 98-107 [facility] ([facility]) Calcium [Mass/volume] in Serum or Plasma 8.2 mg/dL 8.5-10.1 [facility] ([facility]) NOTE: RESULT VERIFIED. Carbon dioxide, total [Moles/volume] in Serum or Plasma 28 meq/L 21 -32 [facility] ([facility]) Glomerular filtration rate/1.73 sq M pre dicted among blacks [Volume Rate/Area] in Serum or Plasma by Creatinine-based formula (MDRD) Laboratory test result [facility] ([facility]) <content>CHRONIC KIDNEY DISEASE STAGING PER NKF</content>
<content></content>
<content>STAGE I & II GFR >= 60 NORMAL TO MILDLY DECREASED</content>
<content>STAGE III GFR 30-59 MODERATELY DECREASED</content>
<content>STAGE IV GFR 15-29 SEVERELY DECREASED</content>
<content>STAGE V GFR <15 VERY LITTLE GFR LEFT</content>
<content>ESRD GFR <15 ON COMPRESSION MOLDING MACHINE SETTER</content>
<content></content> Glomerular filtration rate/1.73 sq M pre dicted among non-blacks [Volume Rate/Area] in Serum or Plasma by Creatinine-based formula (MDRD) 50 mL/min [facility] ([facility]) ID Date Data Source [id number] 04/29/2019 10:10:00 AM EST [facility] ([facility]) Name Value Range Interpretation Code Description Data Johnna rce(s) Supporting Document(s) Prostate specific Ag [Mass/volume] in Serum or Plasma 2.11 ng/mL [facility] ([facility]) This assay was performed on the Siemens Dimension EXL using the B- Galactosidase/CPRG methodology and should not be compared interchangeably with other methods. The PSA should not be used alone as a screening test for the presence or absence of malignant disease. ID Date Data Source [id number] 04/29/2019 10:10:00 AM EST [facility] ([facility]) Name Value Range Interpretation Code Description Data Johnna rce(s) Supporting Document(s) Cholesterol in HDL [Mass/volume] in Serum or Plasma 37 mg/dL 35-60 [facility] ([facility]) Triglyceride [Mass/volume] in Serum or Plasma 95 mg/dL 30-150 [facility] ([facility]) Cholesterol [Mass/volume] in Serum or Plasma 112 mg/dL 131-200 [facility] ([facility]) Cholesterol in LDL [Mass/volume] in Serum or Plasma by calcu lation 56 CALC 50-159 [facility] ([facility]) ID Date Data Source [id number] 04/29/2019 10:10:00 AM EST [facility] ([facility]) Name Value Range Interpretation Code Description Data Johnna rce(s) Supporting Document(s) Glucose [Mass/volume] in Serum or Plasma 89 mg/dL 74-99 [facility] ([facility]) 100-125 mg/dL PRE-DIABETES/FASTING >126 mg/dL DIABETES/FASTING Urea nitrogen [Mass/volume] in Serum or Plasma 16 mg/dL 7-18 [facility] ([facility]) Creatinine 1.4 mg/dL 0.6-1.3 [facility] ([facility]) Sodium [Moles/volume] in Serum or Plasma 143 meq/L 136-145 [facility] ([facility]) Chloride [Moles/volume] in Serum or Plasma 105 meq/L 98-107 [facility] ([facility]) Potassium [Moles/volume] in Serum or Plasma 4.3 meq/L 3.5-5.1 [facility] ([facility]) Carbon dioxide, total [Moles/volume] in Serum or Plasma 29 meq/L 21 -32 [facility] ([facility]) Calcium [Mass/volume] in Serum or Plasma 8.6 mg/dL 8.5-10.1 [facility] ([facility]) Total Bilirubin 0.6 mg/dL 0.2-1.0 [facility] ([facility]) Alkaline phosphatase isoenzyme [Units/volume] in Serum or Pl asma 75 mg/dL 46-116 [facility] ([facility]) Aspartate aminotransferase [Enzymatic activity/volume] in Serum or Plasma 25 U/L 15-37 [facility] ([facility] ) Albumin [Mass/volume] in Serum or Plasma 3.7 g/dL 3.4-5.0 [facility] ([facility]) Proteinase 3 Ab [Units/volume] in Serum 6.9 g/dL 6.4-8.2 [facility] ([facility]) Alanine aminotransferase [Enzymatic activity/volume] in Seru m or Plasma 28 U/L 12-78 [facility] ([facility]) A/G Ratio 1.16 CALC 1.00-1.90 [facility] [facility] Glomerular filtration rate/1.73 sq M pre dicted among non-blacks [Volume Rate/Area] in Serum or Plasma by Creatinine-based formula (MDRD) 50 mL/min [facility] [facility] Glomerular filtration rate/1.73 sq M pre dicted among blacks [Volume Rate/Area] in Serum or Plasma by Creatinine-based formula (MDRD) >= 60 mL/min [facility]) <content>CHRONIC KIDNEY DISEASE STAGING PER NKF</content>
<content></content>
<content>STAGE I & II GFR >= 60 NORMAL TO MILDLY DECREASED</content>
<content>STAGE III GFR 30-59 MODERATELY DECREASED</content>
<content>STAGE IV GFR 15-29 SEVERELY DECREASED</content>
<content>STAGE V GFR <15 VERY LITTLE GFR LEFT</content>
<content>ESRD GFR <15 ON COMPRESSION MOLDING MACHINE SETTER</content>
<content></content> Procedure Vital Signs ID Date Data Source UNK Name Value Range Interpretation Code Description Data Source(s) Body temperature 97.3 [degF] 97.3 [degF] [facility] ([facility] [place]) Body weight 84.370 kg 84.370 kg [facility] Body mass index (BMI) [Ratio] 30.0 kg/m2 30.0 k g/m2 [facility] [place]) Heart rate 76 /min 76 /min [facility] ([facility]) Diastolic blood pressure 83 mm[Hg] 83 mm[Hg] [facility] ([facility]) Systolic blood pressure 124 mm[Hg] 124 mm[Hg] [facility] ([facility]) Body weight 186.00 [lb_av] 186.00 [lb_av] [facility] ([facility]) Body height 66 [in_i] 66 [in_i] [facility]) 5'6" Body mass index (BMI) [Ratio] 30.3 kg/m2 30.3 k g/m2 [facility] ([facility]) Oxygen saturation in Arterial blood by Pulse oximetry --post exerci se 95 % 95 % [facility] ([facility]) RM Air Body weight 183.50 [lb_av] 183.50 [lb_av] [facility] ([facility]) Body height 65.25 [in_i] 65.25 [in_i] [facility] 5'5.25" Heart rate 94 /min 94 /min [facility] ([facility]) Diastolic blood pressure 60 mm[Hg] 60 mm[Hg] [facility] ([facility]) Systolic blood pressure 110 mm[Hg] 110 mm[facility]Hg] [facility] Body mass index (BMI) [Ratio] 30.7 kg/m2 30.7 k g/m2 [facility] ([facility]) Body weight 186.00 [lb_av] 186.00 [lb_av] [facility] ([facility]) Body height 65.25 [in_i] 65.25 [in_i] [facility] 5'5.25" Heart rate 76 /min 76 /min [facility] ([facility]) Diastolic blood pressure 78 mm[Hg] 78 mm[Hg] [facility] ([facility]) Systolic blood pressure 110 mm[Hg] 110 mm[Hg] M [facility] ([facility]) Body mass index (BMI) [Ratio] 30.1 kg/m2 30.1 k g/m2 [facility] ([facility]) Oxygen saturation in Arterial blood by Pulse oximetry 98 % 98 % MEDENT ([facility]) Air Body weight 182.00 [lb_av] 182.00 [lb_av] MEDEN T ([facility]) Body height 65.25 [in_i] 65.25 [in_i] MEDENT ([facility]) 5'5.25" Heart rate 72 /min 72 /min ANGELICA ([facility]) Diastolic blood pressure 60 mm[Hg] 60 mm[Hg] ANGELICA ([facility]) Systolic blood pressure 102 mm[Hg] 102 mm[Hg] Sri BONILLA ([facility]) Body mass index (BMI) [Ratio] 30.5 kg/m2 30.5 k g/m2 ANGELICA ([facility]) Body weight 185.00 [lb_av] 185.00 [lb_av] [facility] Body height 65.25 [in_i] 65.25 [in_i] UNIQUEENT ([facility]) 5'5.25" Heart rate 70 /min 70 /min ANGELICA ([facility]) Diastolic blood pressure 66 mm[Hg] 66 mm[Hg] ANGELICA ([facility]) Systolic blood pressure 106 mm[Hg] 106 mm[Hg] Sri BONILLA ([facility])
[2020-06-22] MEDS ORDERED: LIDOCAINE 2% 100MG/5ML SDV (FOR ANES.) As Ordered ONE (11:18)
[2020-06-22] MEDS ORDERED: fentaNYL 100 MCG/2 ML INJECTION (J3010) As Ordered ONE (11:18)
[2020-06-22] MEDS ORDERED: propofoL 200 MG/20 ML VIAL As Ordered ONE (11:18)
--- NOTE | 2020-06-22 11:57 | ROOR ---
Patient Name: Valentin Garcia Procedure Date: 06/22/2020 11:41 AM Date of : 1945 Age: 75 Room: [facility] Gender: Male Note Status: Finalized Procedure: Upper Endoscopy + Biopsies Indications: Epigastric abdominal pain, Abdominal pain in the right upper quadrant, Heartburn Providers: Jose Valentin MD Referring MD: Sandrita BAER MD Requesting Provider: Medicines: Monitored Anesthesia Care Complications: No immediate complications. Procedure: Pre-Anesthesia Assessment: - The heart rate, respiratory rate, oxygen saturations, blood pressure, adequacy of pulmonary ventilation, and response to care were monitored throughout the procedure. The Endoscope was introduced through the mouth, and advanced to the second part of duodenum. The upper GI endoscopy was accomplished without difficulty. The patient tolerated the procedure well. Findings: The Z-line was regular and was found 40 cm from the incisors. Multiple biopsies were obtained with cold forceps for evaluation to rule out Gonsalez's Esophagus randomly at the gastroesophageal junction. A small hiatal hernia was present. No other significant abnormalities were identified in a careful examination of the stomach. Biopsies were taken with a cold forceps in the gastric antrum for Helicobacter pylori testing. The exam of the duodenum was otherwise normal. Impression: - Z-line regular, 40 cm from the incisors. - Small hiatal hernia. - Multiple biopsies were obtained at the gastroesophageal junction. - Biopsies were taken with a cold forceps for Helicobacter pylori testing. - The examination was otherwise normal. Recommendation: - Patient has a contact number available for emergencies. The signs and symptoms of potential delayed complications were discussed with the patient. Return to normal activities tomorrow. Written discharge instructions were provided to the patient. - High fiber diet. - Discharge patient to home. - Continue present medications. - Await pathology results. - Telephone GI clinic for pathology results in 1 week. - Return to referring physician. - The findings and recommendations were discussed with the patient. Procedure Code(s): --- Professional --- 39075, Esophagogastroduodenoscopy, flexible, transoral; with biopsy, single or multiple Diagnosis Code(s): --- Professional --- K44.9, Diaphragmatic hernia without obstruction or gangrene R10.13, Epigastric pain R10.11, Right upper quadrant pain R12, Heartburn CPT copyright 2019 [employer]. All rights reserved. The codes documented in this report are preliminary and upon blower mechanic review may be revised to meet current compliance requirements. Jose Valentin MD Jose Valentin MD 06/22/2020 11:56:38 AM Electronically signed by Jose Valentin MD Number of Addenda: 0 Note Initiated On: 06/22/2020 11:41 AM Estimated Blood Loss: Estimated blood loss: none.
[2020-06-22] MEDS ORDERED: ePHEDrine SULFATE 25 MG/5 ML(5MG/ML) SYRINGE As Ordered ONE (11:59)
--- NOTE | 2020-06-22 12:14 | ROOR ---
Patient Name: Valentin Garcia Procedure Date: 06/22/2020 11:41 AM Date of : 1945 Age: 75 Room: [facility] Gender: Male Note Status: Finalized Procedure: Total Colonoscopy to Cecum + ileoscopy + Bx Indications: Clinically significant diarrhea of unexplained origin, Rectal bleeding Providers: Jose Valentin MD Referring MD: Sandrita BAER MD Requesting Provider: Medicines: Monitored Anesthesia Care Complications: No immediate complications. Procedure: Pre-Anesthesia Assessment: - The heart rate, respiratory rate, oxygen saturations, blood pressure, adequacy of pulmonary ventilation, and response to care were monitored throughout the procedure. The Colonoscope was introduced through the anus and advanced to the terminal ileum, with identification of the appendiceal orifice and IC valve. The colonoscopy was performed without difficulty. The patient tolerated the procedure well. The quality of the bowel preparation was excellent. Findings: The perianal and digital rectal examinations were normal. Non-bleeding internal hemorrhoids were found during retroflexion. The hemorrhoids were small and Grade I (internal hemorrhoids that do not prolapse). Multiple small and large-mouthed diverticula were found in the recto-sigmoid colon, sigmoid colon and descending colon. Biopsies for histology were taken with a cold forceps from the ascending colon, transverse colon and descending colon for evaluation of microscopic colitis. The terminal ileum appeared normal. The exam was otherwise without abnormality on direct and retroflexion views. Impression: - Non-bleeding internal hemorrhoids. - Diverticulosis in the recto-sigmoid colon, in the sigmoid colon and in the descending colon. - The examined portion of the ileum was normal. - The examination was otherwise normal on direct and retroflexion views. - Biopsies were taken with a cold forceps from the ascending colon, transverse colon and descending colon for evaluation of microscopic colitis. - The exam was otherwise normal to the cecum. Recommendation: - Patient has a contact number available for emergencies. The signs and symptoms of potential delayed complications were discussed with the patient. Return to normal activities tomorrow. Written discharge instructions were provided to the patient. - High fiber diet. - Discharge patient to home. - Continue present medications. - Await pathology results. - Telephone GI clinic for pathology results in 1 week. - Repeat colonoscopy is not recommended due to current age (66 years or older) for surveillance. - Return to referring physician. - The findings and recommendations were discussed with the patient. Procedure Code(s): --- Professional --- 24363, Colonoscopy, flexible; with biopsy, single or multiple Diagnosis Code(s): --- Professional --- K64.0, First degree hemorrhoids R19.7, Diarrhea, unspecified K62.5, Hemorrhage of anus and rectum K57.30, Diverticulosis of large intestine without perforation or abscess without bleeding CPT copyright 2019 [employer]. All rights reserved. The codes documented in this report are preliminary and upon engineering operator review may be revised to meet current compliance requirements. Jose Valentin MD Jose Valentin MD 06/22/2020 12:13:37 PM Electronically signed by Jose Valentin MD Number of Addenda: 0 Note Initiated On: 06/22/2020 11:41 AM Estimated Blood Loss: Estimated blood loss: none.
[2020-06-22 12:35] VITALS: BP 116/65
== END 2020-06-22 12:51 | disposition home or self-care (01) ==
LOC: M OPP 10:03
PROVIDERS: ATTEND Internal Medicine Gastroenterology
DX: R19.7 Diarrhea, unspecified (principal); K62.5 Hemorrhage of anus and rectum; R10.13 Epigastric pain; R10.11 Right upper quadrant pain; D12.6 Benign neoplasm of colon, unspecified; K64.0 First degree hemorrhoids; K57.30 Diverticulosis of large intestine without perforation or abscess without bleeding; D13.0 Benign neoplasm of esophagus; D13.1 Benign neoplasm of stomach; K44.9 Diaphragmatic hernia without obstruction or gangrene; I10 Essential (primary) hypertension; E78.5 Hyperlipidemia, unspecified; M10.9 Gout, unspecified; G43.909 Migraine, unspecified, not intractable, without status migrainosus; Z87.891 Personal history of nicotine dependence; Z88.2 Allergy status to sulfonamides; Z88.8 Allergy status to other drugs, medicaments and biological substances; Z79.899 Other long term (current) drug therapy
CPT/HCPCS: 43239; 45380; 88305; J3010

== ENCOUNTER → 2020-07-01 | Outpatient (REF) | payer MEDICARE, OTHER ==
[~2020-07-01] MED LIST changes: -NS 1,000 ML IV ONE
[2020-07-01 18:14] LABS: FOLATE > 24.0 NG/ML; VITAMIN B12 LEVEL 1139 PG/ML
== END ==
LOC: M LAB REF 16:05
PROVIDERS: ATTEND Internal Medicine
DX: E51.9 Thiamine deficiency, unspecified (principal); D51.9 Vitamin B12 deficiency anemia, unspecified

== ENCOUNTER → 2020-07-13 | Outpatient (CLI) | payer MEDICARE, OTHER ==
--- NOTE | 2020-07-14 16:28 | SLEEPCENT ---
DATE: 07/13/2020 ORDERED BY: Dr. Rodriguez Nocturnal polysomnography was performed for evaluation of sleep physiology in this patient with a history of excessive somnolence, morning headaches, nonrestorative sleep, and snoring, who has significant cormobidities of hypertension and acid reflux. There was 8 hours and 11 minutes of data reviewed. There was 317.5 minutes of sleep identified. Sleep latency was prolonged at 57 minutes. REM latency was prolonged at 275 minutes. Sleep architecture showed fragmentation and poor progression until late in the study, when two REM cycles were experienced. The patient's overall sleep efficiency was 65.3%. The electrocardiogram showed a sinus rhythm with an average heart rate of 76 beats per minute. EEG showed normal waveforms for wake and sleep. There were 28 respiratory events identified of 10 seconds in duration or greater for an apnea-hypopnea index of 5.3. The events were primarily obstructive, not exclusive to sleep stage nor to body position. Arousals from respiratory events occurred six times per hour, and oxygen desaturations were seen into the upper 70s. There was some activity in the limb EMG leads with one train of 30 events, but limb movement arousal index was only 1.7. IMPRESSION: Obstructive sleep apnea syndrome (G47.33). Apnea-hypopnea index 5.3. RECOMMENDATION: Given the patient's symptoms and significant oxygen desaturation, referral back to the sleep disorder center for pressure therapy is recommended. In the interim, alcohol and sedative avoidance should be practiced and caution exercised during the operation of motor vehicles.
== END ==
LOC: M SLEEP 20:00
PROVIDERS: ATTEND Internal Medicine Pulmonary Disease
DX: G47.33 Obstructive sleep apnea (adult) (pediatric) (principal)

== ENCOUNTER → 2020-08-02 | Outpatient (CLI) | payer MEDICARE, OTHER ==
[2020-08-02 19:09] LABS: BASO % 0.3 % (0.0-1.0); EOS # 0.1 10^3/uL (0.0-0.5); EOS % 1.2 % (0.0-3.0); HEMATOCRIT 42.7 % (42.0-52.0); LYMPH # 2.3 10^3/uL (1.5-5.0); LYMPH % 33.8 % (24.0-44.0); MEAN CORPUSCULAR HEMOGLOBIN 31.9 pg (27.0-33.0); MEAN CORPUSCULAR HGB CONC 32.8 g/dl (32.0-36.5); MEAN CORPUSCULAR VOLUME 97.3 fl (80.0-96.0); MONO # 0.9 10^3/uL (0.0-0.8); MONO % 13.4 % (2.0-8.0); NEUTROPHILS # 3.4 10^3/uL (1.5-8.5); NEUTROPHILS % 50.6 % (36.0-66.0); PLATELET COUNT, AUTOMATED 154 10^3/uL (150-450); RED BLOOD COUNT 4.39 10^6/uL (4.30-6.10); WHITE BLOOD COUNT 6.7 10^3/uL (4.0-10.0)
--- NOTE | 2020-08-02 19:09 | REP ---
INDICATION: INFLAMMATORY POLYARTHROPATHY. COMPARISON: None. TECHNIQUE: Five views of each knee are provided. FINDINGS: Five views of the right demonstrate diffuse osteopenia. There is lateral patellar spurring and superior pole articular spurring of the right patella is seen. No erosive changes seen. No evidence of joint effusion.. No fracture or subluxation is seen. Five views of the left knee demonstrate articular and non articular spurring on the superior pole of the patella. No joint effusion is seen. There is diffuse osteopenia. No erosive changes seen. IMPRESSION: Mild patellar osteoarthritic spurring and non articular spurring at the quadriceps tendon insertion of the left patella. Diffuse osteopenia. No acute bony abnormality.. <Electronically signed by Vern Estrada > 08/02/20 [id number]
--- NOTE | 2020-08-02 19:11 | REP ---
INDICATION: INFLAMMATORY POLYARTHROPATHY. COMPARISON: None. TECHNIQUE: Eight views, 4 of each wrist. FINDINGS: There is mild diffuse osteopenia. There is osteoarthritic spurring and slight narrowing at the 1st carpometacarpal articulations bilaterally. There are subcortical cysts in the triquetrum on the left. There is a small subcortical cyst at the proximal pole of the navicular bone on the left. Dorsal carpal soft tissue swelling is seen bilaterally on lateral radiograph. No erosive changes noted. IMPRESSION: Diffuse osteopenia. Mild osteoarthritic changes. Dorsal carpal soft tissue swelling. No erosion seen. Some subcortical cyst formation. <Electronically signed by Vern Estrada > 08/02/20 1986
--- NOTE | 2020-08-02 19:14 | REP ---
INDICATION: INFLAMMATORY POLYARTHROPATHY. COMPARISON: None. TECHNIQUE: Eight views are presented. Four on each side. FINDINGS: Four views of each hand demonstrate mild diffuse osteopenia. There is osteoarthritic spurring at the MCP joints bilaterally mild in degree. Some early osteo arthritic spurring is visible at the IP joint of each thumb and the DIP joints of the fingers bilaterally. The most pronounced spurring is seen in the 5th DIP joint on each side. There is soft tissue swelling at the PIP joints of the index fingers bilaterally. Subcortical cyst formation is seen at PIP joints of the right index and long finger. No acute erosive changes seen. There is soft tissue swelling at the DIP joint of the index finger on the left. Some swelling is seen at the DIP joint of the index finger on the right as well. IMPRESSION: Diffuse osteopenia and osteoarthritic changes.. <Electronically signed by Vern Estrada > 08/02/201910
--- NOTE | 2020-08-02 19:16 | REP ---
INDICATION: INFLAMMATORY POLYARTHROPATHY. COMPARISON: None. TECHNIQUE: Eight views, 4 on each side. FINDINGS: Four views of each foot show mild diffuse osteopenia. Plantar calcaneal spurs are noted bilaterally. Joint spaces are preserved. No erosive changes. IMPRESSION: Bilateral heel spurs. Otherwise negative.. <Electronically signed by Vern Estrada > 08/02/20 [id number]
--- NOTE | 2020-08-02 19:16 | REP ---
INDICATION: INFLAMMATORY POLYARTHROPATHY. COMPARISON: None. TECHNIQUE: Eight views, 4 of each ankle. FINDINGS: There are bilateral plantar calcaneal spurs. No erosive changes seen. Ankle mortise is intact bilaterally. Bones, joints, and soft tissues are otherwise unremarkable. IMPRESSION: Bilateral plantar calcaneal spurs. <Electronically signed by Vern Estrada > 08/02/201911
[2020-08-02 19:26] LABS: APPEARANCE, URINE CLEAR (CLEAR); BACTERIA, URINE AUTO NEGATIVE (NEGATIVE); BILIRUBIN, URINE AUTO NEGATIVE (NEGATIVE); BLOOD, URINE BLOOD NEGATIVE (NEGATIVE); COLOR, URINE YELLOW (YELLOW); GLUCOSE, URINE (UA) AUTO NEGATIVE (NEGATIVE); KETONE, URINE AUTO NEGATIVE (NEGATIVE); LEUKOCYTE ESTERASE, URINE AUTO NEGATIVE (NEGATIVE); MUCUS, URINE SMALL (NEGATIVE); NITRITE, URINE AUTO NEGATIVE (NEGATIVE); PROTEIN, URINE AUTO NEGATIVE (NEGATIVE); RBC, URINE AUTO 0 /HPF (0-3); SPECIFIC GRAVITY URINE AUTO 1.011 (1.002-1.035); SQUAMOUS EPITHELIAL CELL UR AU 0 /HPF (0-6); UROBILINOGEN, URINE AUTO 0.2 mg/dL (0.0-2.0); WBC, URINE AUTO 1 /HPF (0-3)
[2020-08-02 19:33] LABS: C REACTIVE PROTEIN QUANTITATIV < 0.30 MG/DL (0.00-0.30); COMPLEMENT C3 115 MG/DL (90-180); IRON (FE) 104 UG/DL (65-175); MAGNESIUM LEVEL 2.1 MG/DL (1.8-2.4); TOTAL PROTEIN,RANDOM URINE 12.1 MG/DL (0.0-12.0)
[2020-08-02 19:43] LABS: TOTAL 25(OH) VITAMIN D 50.2 NG/ML (30.0-100.0)
[2020-08-02 19:44] LABS: VITAMIN B12 LEVEL 944 PG/ML (247-911)
[2020-08-02 19:54] LABS: ERYTHROCYTE SEDIMENTATION RATE 15 mm/hr (0-20)
[2020-08-03 11:36] LABS: DRVV SCREEN 36.9 SEC
[2020-08-03 11:40] LABS: PTT LUPUS TYPE ANTICOAG SCREEN 0.9 (0-1.2)
[2020-08-10 14:14] LABS: ANA (HEP2) Positive (.); ANTI-HISTONE ANTIBODIES 1.2 Units (0.0-0.9); ANTI-U1 RNP AB <20 Units (<20); BETA-2 GLYCOPROTEIN I ABY IGA <9 (0-25); BETA-2 GLYCOPROTEIN I ABY IGG <9 (0-20); BETA-2 GLYCOPROTEIN I ABY IGM <9 (0-32); CARDIOLIPIN IGA ANTIBODY <9 APL U/mL (0-11); CARDIOLIPIN IGG ANTIBODY <9 GPL U/mL (0-14); CARDIOLIPIN IGM ANTIBODY <9 MPL U/mL (0-12); COMPLEMENT TOTAL (CH50) > 60 U/mL (>41)
== END ==
LOC: M LAB 17:32
PROVIDERS: ATTEND Internal Medicine
DX: M77.31 Calcaneal spur, right foot (principal); M77.32 Calcaneal spur, left foot; M85.88 Other specified disorders of bone density and structure, other site; M19.041 Primary osteoarthritis, right hand; M19.042 Primary osteoarthritis, left hand; M19.031 Primary osteoarthritis, right wrist; M19.032 Primary osteoarthritis, left wrist; M06.4 Inflammatory polyarthropathy; R25.2 Cramp and spasm; M17.12 Unilateral primary osteoarthritis, left knee
CPT/HCPCS: 36415; 73110; 73130; 73564; 73610; 73630; 81001; 82306; 82570; 82607; 83520; 83540; 83735; 84156; 85025; 85652; 85730; 86038; 86140; 86146; 86147; 86160; 86162; 86235; G0463

== ENCOUNTER → 2020-08-03 | Outpatient (CLI) | payer MEDICARE, OTHER ==
--- NOTE | 2020-08-04 13:52 | SLEEPCENT ---
DATE: 08/03/2020 ORDERED BY: Dr. Rosaura Rodriguez Nocturnal polysomnography was performed for the titration of pressure therapy in this patient with obstructive sleep apnea syndrome, apnea-hypopnea index 5.3. For testing, a [employer]Med Mirage Quattro full-face mask of medium size was used. There was 4 cm of water pressure applied to the circuit, and the lights were extinguished. There was 8 hours and 13 minutes of data reviewed. There was 315.5 minutes of sleep identified. Sleep latency was normal at 21 minutes. REM latency was delayed at 338 minutes. Sleep architecture improved late in the study on optimal pressure therapy. There was one REM cycle noted. Overall sleep efficiency was 64.5%. The electrocardiogram showed a sinus rhythm with an average heart rate of 78 beats per minute. EEG showed normal waveforms for wake and sleep. Respiratory events were best palliated with CPAP at a pressure of +9. There was some minor limb activity. Limb movement arousal index was 0.8. IMPRESSION: Obstructive sleep apnea syndrome (G47.33). RECOMMENDATION: Nightly use of pressure therapy, 9 cm of water.
== END ==
LOC: M SLEEP 20:00
PROVIDERS: ATTEND Internal Medicine Pulmonary Disease
DX: G47.33 Obstructive sleep apnea (adult) (pediatric) (principal)

== ENCOUNTER → 2020-09-13 | Outpatient (CLI) | payer MEDICARE, OTHER ==
--- NOTE | 2020-09-13 12:56 | DEXAMM ---
INDICATION: M85.80 OSTEOPENIA. COMPARISON: None. TECHNIQUE: Bone density was measured using dual-energy x-ray absorptiometry (DEXA). FINDINGS: AP SPINE L1-L4 BMD 1.257 g/cm2 Young Adult T-Score 0.5 Age Matched Z-Score 0.8. LT FEMUR, TOTAL BMD 0.924 g/cm2 Young Adult T-Score -0.7 Age Matched Z-Score -0.4. LT NECK BMD 0.866 g/cm2 Young Adult T-Score -1.2 Age Matched Z-Score -0.2. RT FEMUR, TOTAL BMD 0.921 g/cm2 Young Adult T-Score -0.7 Age Matched Z-Score -0.4. RT NECK BMD 0.833 g/cm2 Young Adult T-Score -1.5 Age Matched Z-Score -0.5. IMPRESSION: There is normal bone density of the spine. There is low bone density of the left hip. There is low bone density of the right hip. FOLLOW-UP: Recommendation for the next bone density exam: 2 years. <Electronically signed by Yandel Cooley > 09/13/20 [id number]
== END ==
LOC: M WHC 11:36
PROVIDERS: ATTEND Internal Medicine
DX: M85.851 Other specified disorders of bone density and structure, right thigh (principal); M85.852 Other specified disorders of bone density and structure, left thigh

== ENCOUNTER → 2021-02-23 | Outpatient (CLI) | payer MEDICARE, OTHER | LOC: M LAB 14:05 | PROVIDERS: ATTEND Internal Medicine | DX: R74.8 Abnormal levels of other serum enzymes (principal) ==

== ENCOUNTER → 2021-06-28 | Outpatient (REF) | payer MEDICARE, OTHER ==
[~2021-06-28] MED LIST changes: +LOSA25TA13 PO; -LOSA25TA14 PO
== END ==
LOC: M LAB REF 12:10
PROVIDERS: ATTEND Internal Medicine
DX: N52.9 Male erectile dysfunction, unspecified (principal)

== ENCOUNTER → 2021-07-06 | Outpatient (CLI) | payer MEDICARE, OTHER | LOC: M PLAIMG 13:57 | PROVIDERS: ATTEND Nurse Practitioner Family | DX: S43.51XA Sprain of right acromioclavicular joint, initial encounter (principal); X58.XXXA Exposure to other specified factors, initial encounter; Y92.9 Unspecified place or not applicable; M67.813 Other specified disorders of tendon, right shoulder; M75.81 Other shoulder lesions, right shoulder; M25.711 Osteophyte, right shoulder; M75.51 Bursitis of right shoulder; M75.101 Unspecified rotator cuff tear or rupture of right shoulder, not specified as traumatic ==

== ENCOUNTER → 2021-10-09 | Outpatient (REF) | payer MEDICARE, OTHER ==
[2021-10-09 17:44] LABS: C REACTIVE PROTEIN QUANTITATIV 0.61 MG/DL (0.00-0.30)
[2021-10-12 13:09] LABS: ANA (HEP2) Positive (.); ANTI-HISTONE ANTIBODIES 0.8 Units (0.0-0.9)
== END ==
LOC: M SFHCRHEU 12:16
PROVIDERS: ATTEND Internal Medicine
DX: R74.8 Abnormal levels of other serum enzymes (principal); M06.4 Inflammatory polyarthropathy; M35.9 Systemic involvement of connective tissue, unspecified

== ENCOUNTER → 2022-09-13 | Outpatient (REF) | payer MEDICARE, OTHER | LOC: M LAB REF 16:50 | PROVIDERS: ATTEND Internal Medicine | DX: M10.9 Gout, unspecified (principal) ==

== ENCOUNTER → 2023-01-04 | Outpatient (CLI) | payer MEDICARE, OTHER | LOC: M WHC 10:49 | PROVIDERS: ATTEND Internal Medicine | DX: M85.89 Other specified disorders of bone density and structure, multiple sites (principal) ==

== ENCOUNTER → 2023-10-16 | Outpatient (CLI) | payer MEDICARE, OTHER | LOC: M RAD 07:49 | PROVIDERS: ATTEND Internal Medicine | DX: R10.11 Right upper quadrant pain (principal); K76.0 Fatty (change of) liver, not elsewhere classified ==

== ENCOUNTER → 2024-01-02 | Outpatient (CLI) | payer MEDICARE, OTHER | LOC: M RAD 11:40 | PROVIDERS: ATTEND Internal Medicine | DX: K21.9 Gastro-esophageal reflux disease without esophagitis (principal); R10.11 Right upper quadrant pain | CPT/HCPCS: 78227; A9537 ==

== ENCOUNTER → 2024-03-18 | Outpatient (REF) | payer MEDICARE, OTHER | LOC: M LAB REF 16:53 | PROVIDERS: ATTEND Internal Medicine | DX: M10.9 Gout, unspecified (principal) ==

== ENCOUNTER → 2024-03-23 | Outpatient (CLI) | payer MEDICARE, OTHER | LOC: M PLAIMG 16:16 | PROVIDERS: ATTEND Internal Medicine | DX: R10.31 Right lower quadrant pain (principal); M47.817 Spondylosis without myelopathy or radiculopathy, lumbosacral region; Z96.611 Presence of right artificial shoulder joint; M19.011 Primary osteoarthritis, right shoulder; M47.814 Spondylosis without myelopathy or radiculopathy, thoracic region ==

== ENCOUNTER → 2024-12-09 | Outpatient (CLI) | payer MEDICARE, OTHER | LOC: M PLAIMG 09:10 | PROVIDERS: ATTEND Orthopaedic Surgery | DX: M25.561 Pain in right knee (principal); S83.241A Other tear of medial meniscus, current injury, right knee, initial encounter; X58.XXXA Exposure to other specified factors, initial encounter; Y92.9 Unspecified place or not applicable; Y93.9 Activity, unspecified; Y99.9 Unspecified external cause status ==

== ENCOUNTER → 2025-01-06 | Outpatient (CLI) | payer MEDICARE, OTHER | LOC: M WHC 10:22 | PROVIDERS: ATTEND Internal Medicine | DX: M85.851 Other specified disorders of bone density and structure, right thigh (principal); M85.852 Other specified disorders of bone density and structure, left thigh ==

== ENCOUNTER → 2025-01-07 | Outpatient (REF) | payer MEDICARE, OTHER ==
[2025-01-07 14:30] LABS: IRON (FE) 182.0 UG/DL (65-175)
[2025-01-07 14:31] LABS: VITAMIN B12 LEVEL 995.0 PG/ML (211-911)
[2025-01-07 14:32] LABS: C REACTIVE PROTEIN QUANTITATIV 0.55 MG/DL (<1.0)
[2025-01-07 14:33] LABS: PERCENT SATURATION 70.5 % (19.7-50.0)
== END ==
LOC: M LAB REF 12:25
PROVIDERS: ATTEND Internal Medicine
DX: M10.9 Gout, unspecified (principal); E83.10 Disorder of iron metabolism, unspecified; E53.8 Deficiency of other specified B group vitamins; M06.4 Inflammatory polyarthropathy

== ENCOUNTER → 2025-02-10 | Outpatient (CLI) | payer MEDICARE, OTHER | LOC: M PLALAB 14:48 | PROVIDERS: ATTEND Nurse Practitioner Family | DX: Z12.5 Encounter for screening for malignant neoplasm of prostate (principal) ==

== ENCOUNTER → 2025-04-05 | Outpatient (REF) | payer MEDICARE, OTHER ==
[2025-04-05 16:30] LABS: VITAMIN B12 LEVEL 642.0 PG/ML (211-911)
== END ==
LOC: M LAB REF 14:15
PROVIDERS: ATTEND Internal Medicine
DX: M85.80 Other specified disorders of bone density and structure, unspecified site (principal); N18.31 Chronic kidney disease, stage 3a